=== PATIENT | female | born 1965 | race Caucasian/White ===

== ENCOUNTER 2019-05-07 07:58 | Outpatient (CLI) | payer MEDICAID, SELFPAY | END 2019-05-07 07:59 | disposition home or self-care (01) | LOC: ANHAUDIO 08:03 | DX: R42 Dizziness and giddiness (principal); H90.71 Mixed conductive and sensorineural hearing loss, unilateral, right ear, with unrestricted hearing on the contralateral side | CPT/HCPCS: 92537; 92540; 92546; 92557; 92567 ==

== ENCOUNTER 2020-12-21 14:12 | Outpatient (CLI) | payer OTHER, SELFPAY ==
[2020-12-21 15:15] LABS: Iron 97 ug/dL (37-170)
[2020-12-21 15:25] LABS: Percent Iron Saturation 22 % (20-50)
[2020-12-25 14:21] LABS: Ceruloplasmin 29 mg/dL (18-53)
[2020-12-25 20:18] LABS: Actin Antibody (IgG) <20 U (<20)
[2020-12-26 10:34] LABS: Mitochondrial (M2) Ab (IgG) <=20.0 U (<=20.0)
== END 2020-12-21 14:13 | disposition home or self-care (01) ==
PROVIDERS: Visit Provider Internal Medicine Gastroenterology
DX: R74.8 Abnormal levels of other serum enzymes (principal)
CPT/HCPCS: 36415; 82104; 82390; 82728; 83516; 83520; 83540; 83550; 86038

== ENCOUNTER → 2021-02-10 00:09 | Outpatient (CLI) | payer OTHER, SELFPAY ==
[2021-02-10 18:14] LABS: SARS-CoV-2 RNA PCR Negative
== END ==
PROVIDERS: Visit Provider Internal Medicine Gastroenterology
DX: Z01.812 Encounter for preprocedural laboratory examination (principal); Z20.822 Contact with and (suspected) exposure to COVID-19
CPT/HCPCS: C9803; U0003; U0005

== ENCOUNTER 2021-02-14 00:33 | Day surgery (SDC) | payer OTHER, SELFPAY ==
[2021-01-31 14:00] VITALS: BMI 32.2
[2021-02-14 09:36] LABS: Glucose Point of Care 190 mg/dl (65-105)
[2021-02-14 09:37] VITALS: BP 120/79; PULSE 87; TEMP 36.6; O2SAT 95
--- NOTE | 2021-02-14 09:41 | PM.HPGS ---
History of Present Illness History of Present Illness Consent: Risks, benefits, and alternatives have been discussed and questions answered. Patient agrees to proceed with procedure. Chief complaint: hx of colon polyps Narrative: Brigette Coughlin is a 55 year old female with TA polyp 2015 Review of Systems Constitutional: Constitutional: Denies headache(s) and Denies weakness Eyes: Eyes: Denies blurry vision ENT: Reports Normal hearing present, Denies headache(s) and Denies neck pain Cardiovascular: Cardiovascular: Denies chest pain and Denies dyspnea Respiratory: Respiratory: Denies dyspnea Gastrointestinal: Gastrointestinal: Reports no additional gastrointestinal complaints Genitourinary: Genitourinary: Denies dysuria Musculoskeletal: Musculoskeletal: Denies neck pain Integumentary/Breasts: Skin/Breast: Denies dry skin Neurologic: Reports Normal hearing present, Denies headache(s) and Denies weakness Psychiatric: Psychiatric: Denies anxiety Endocrine: Endocrine: Denies change in body appearance Hematologic/Lymphatic: Hematologic/Lymphatic: Denies easy bleeding Allergic/Immunologic: Allergic/Immunologic: Denies urticaria PMF Past Medical History Medical History (Updated 12/21/20 @ 14:10 by Kane Harris MD) Adenomatous colon polyp Diabetes mellitus Elevated liver enzymes Social History Social History (Updated 12/21/20 @ 13:39 by Nicole Souza CMA) Years smoked: 30 Smoking status: Never smoker Tobacco type: cigarettes Alcohol intake: never Substance use: never Living arrangements: alone Meds Home Medications and Allergies Home Medications Medication Instructions Recorded Confirmed Type blood sugar diagnostic 12/21/20 History exenatide 5 mcg SUBCUT BID 12/21/20 02/14/21 History gabapentin 400 mg capsule 400 mg PO TID 12/21/20 02/14/21 History glimepiride 2 mg tablet 4 mg PO QAM 12/21/20 02/14/21 History levothyroxine 137 mcg tablet 137 mcg PO DAILY 12/21/20 02/14/21 History loratadine 10 mg tablet 10 mg PO PRN 12/21/20 01/31/21 History losartan 25 mg tablet 25 mg PO DAILY 12/21/20 01/31/21 History meclizine 25 mg tablet 25 mg PO BID PRN 12/21/20 01/31/21 History meloxicam 15 mg tablet 15 mg PO DAILY 12/21/20 01/31/21 History metformin 500 mg tablet 1,000 mg PO BID 12/21/20 01/31/21 History pen needle, diabetic 32 gauge x 12/21/20 History / simvastatin 10 mg tablet 10 mg PO DAILY 12/21/20 01/31/21 History aspirin 81 mg PO DAILY 01/31/21 02/14/21 History cholecalciferol (vitamin D3) 125 mcg PO DAILY 01/31/21 02/14/21 History [Vitamin D3] cimetidine 400 mg PO BID 01/31/21 02/14/21 History fenofibrate 160 mg PO DAILY 01/31/21 02/14/21 History vitamin B complex [B 1 tablet PO DAILY 01/31/21 01/31/21 History Complex-Vitamin B12] vitamin E (dl, acetate) 180 mg PO DAILY 01/31/21 01/31/21 History Allergies Allergy/AdvReac Type Severity Reaction Status Date / Time Penicillins Allergy Unknown Unknown Verified 02/14/21 09:36 Vital Signs Vital Signs - 24 hr 02/14/21 09:37 Temperature 97.9 F Pulse Rate 87 Blood Pressure 120/79 Pulse Oximetry 95 Exam Const: General: comfortable and no acute distress HENMT: General nose exam: Normal nares present Eyes: General: appearance normal, both eyes and all related structures Neck: Neck: no JVD Resp: Auscultation: clear to auscultation bilaterally Cardio: Rate: regular rate Rhythm: regular rhythm GI: Inspection: non-distended GI Palp: Yes Soft to palpation Skin: General skin exam: normal color Neuro: General: gait normal Speech: normal speech Extrem: General: normal to inspection Psych: Mental Status: mental status grossly normal Assessment and Plan Assessment and plan (1) Adenomatous colon polyp: Code(s): D12.6 - Benign neoplasm of colon, unspecified Status: Acute Assessment and Plan: colonoscopy
[2021-02-14] MEDS: LACTATED RINGERS 1,000 ML 150 ML IV CONT (09:44)
--- NOTE | 2021-02-14 09:44 | WPDANESEPPF ---
Anes - Initial Pre Proc Eval Procedure: Operation Date: 02/14/21 10:45 Proposed Procedures p Screening Colonoscopy - Kane Harris MD Date/Time: 02/14/21 09:44 Surgeon: Kane Harris MD Pre Op Diagnosis: hx of colon polyps Patient Data Age: 55 Gender: F Height: 1.57 m Weight: 79.2 kg Last Vital Signs Temp 36.6 C 02/14/21 09:37 Pulse 87 02/14/21 09:37 BP 120/79 02/14/21 09:37 Pulse Ox 95 02/14/21 09:37 Allergies Allergy/AdvReac Type Severity Reaction Status Date / Time Penicillins Allergy Unknown Unknown Verified 02/14/21 09:36 Home Medications Medication Instructions Recorded Confirmed Type blood sugar diagnostic 12/21/20 History exenatide 5 mcg SUBCUT BID 12/21/20 02/14/21 History gabapentin 400 mg capsule 400 mg PO TID 12/21/20 02/14/21 History glimepiride 2 mg tablet 4 mg PO QAM 12/21/20 02/14/21 History levothyroxine 137 mcg tablet 137 mcg PO DAILY 12/21/20 02/14/21 History loratadine 10 mg tablet 10 mg PO PRN 12/21/20 01/31/21 History losartan 25 mg tablet 25 mg PO DAILY 12/21/20 01/31/21 History meclizine 25 mg tablet 25 mg PO BID PRN 12/21/20 01/31/21 History meloxicam 15 mg tablet 15 mg PO DAILY 12/21/20 01/31/21 History metformin 500 mg tablet 1,000 mg PO BID 12/21/20 01/31/21 History pen needle, diabetic 32 gauge x 12/21/20 History simvastatin 10 mg tablet 10 mg PO DAILY 12/21/20 01/31/21 History aspirin 81 mg PO DAILY 01/31/21 02/14/21 History cholecalciferol (vitamin D3) 125 mcg PO DAILY 01/31/21 02/14/21 History [Vitamin D3] cimetidine 400 mg PO BID 01/31/21 02/14/21 History fenofibrate 160 mg PO DAILY 01/31/21 02/14/21 History vitamin B complex [B 1 tablet PO DAILY 01/31/21 01/31/21 History Complex-Vitamin B12] vitamin E (dl, acetate) 180 mg PO DAILY 01/31/21 01/31/21 History Laboratory Tests 02/14/21 09:33 POC Capillary Glucose 190 mg/dl H mg/dl (65-105) Patient hx anesthesia problems: none Family hx anesthesia problems: none Results Review: All pre-operative results and documents have been reviewed as part of the pre-operative evaluation. [facility] Past Medical History Medical History (Updated 02/14/21 @ 09:44 by Myron Tanner MD) Adenomatous colon polyp Diabetes mellitus Elevated liver enzymes Obesity Surgical History Surgical History (Updated 02/14/21 @ 09:44 by Myron Tanner MD) H/O colonoscopy Social History Social History Years smoked: 30 Smoking status: Never smoker Tobacco type: cigarettes Alcohol intake: never Substance use: never Living arrangements: alone Anes - Eval Final PreProcedure Day of Procedure 02/14/21 09:44 Patient weight: obese Heart: regular rate and rhythm Lungs: clear to auscultation Airway: Mallampati scale class II Neurological: alert and oriented Last oral intake: >/= 8 hours ASA classification: III Emergent: no Anesthetic plan: proceed Anesthesia type and monitoring: general GIVS and standard monitoring Results Review: All pre-operative results and documents have been reviewed as part of the pre-operative evaluation. Informed Consent: The patient's anesthetic plan and its attendant risks and benefits were discussed with the patient/family/POA. Questions were solicited and answers provided to the satisfaction of the patient/family/POA.
[2021-02-14 10:08] VITALS: BP 113/71; PULSE 80; RESP 23; O2SAT 94
[2021-02-14 10:18] VITALS: BP 121/72; PULSE 72; RESP 21; O2SAT 98
[2021-02-14 10:28] VITALS: BP 119/83; PULSE 75; RESP 20; O2SAT 98
== END 2021-02-14 10:38 | disposition home or self-care (01) ==
PROVIDERS: PCP Internal Medicine; Visit Provider Internal Medicine Gastroenterology
PROC: 0DJD8ZZ Inspection of Lower Intestinal Tract, Via Natural or Artificial Opening Endoscopic (ICD-10-PCS; CPT 45378; principal; 2021-02-14 10:45)
DX: Z12.11 Encounter for screening for malignant neoplasm of colon (principal); D12.2 Benign neoplasm of ascending colon; K63.5 Polyp of colon; K64.8 Other hemorrhoids; E03.9 Hypothyroidism, unspecified; Z79.82 Long term (current) use of aspirin; Z79.4 Long term (current) use of insulin; E11.9 Type 2 diabetes mellitus without complications; R74.8 Abnormal levels of other serum enzymes; E66.9 Obesity, unspecified; Z68.31 Body mass index [BMI] 31.0-31.9, adult
CPT/HCPCS: 45385; 82948; 88305; J2704; J7120

== ENCOUNTER 2021-11-21 10:44 | Emergency (ER) | payer OTHER, SELFPAY ==
--- NOTE | ~2021-11-21 | XR_ITS ---
EXAMINATION: XR foot LT min 3V DATE: 11/21/2021 11:31 INDICATION: Lateral left foot and heel pain TECHNIQUE: Dorsoplantar, two oblique and lateral views of the left foot were obtained. COMPARISON: None. FINDINGS: Bone alignment is normal. No fracture. Mild osteoarthritis at multiple joints scattered throughout th e left foot. No erosions to suggest inflammatory arthritis. Normal accessory os supranaviculare. Soft tissues are unremarkable with no ankle joint effusion.. IMPRESSION: 1. 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 No acute osseous abnormality. Reviewed, dictated and finalized at location A.
[2021-11-21 10:50] VITALS: BP 122/78; PULSE 98; RESP 14; TEMP 36.7; O2SAT 97
--- NOTE | 2021-11-21 11:11 | ED.LOWEXIN ---
HPI - Extremity Injury (Lower) General Chief Complaint: Extremity Injury, Lower Stated Complaint: left foot up to knee pain Time Seen by Provider: 11/21/21 11:11 Source: patient Mode of arrival: ambulatory Limitations: no limitations History of Present Illness HPI Narrative: 56 y/o female presented for c/o left foot, heel and ankle pain for 2 days, Reports swelling at onset, but stayed off the foot yesterday and used ice, endorses improvement in this pain and swelling. She also reports burning sensation up the lower leg to the knee and is severe with light touch, onset today. States she could not tolerate shaving her legs or any touch to the leg. Denies injury, redness, or wounds to the legs, denies numbness, tingling or weakness. Denies exercise. Hx DM, fibromyalgia, taking gabapentin and meloxicam scheduled. Related Data Home Medications Medication Instructions Recorded Confirmed blood sugar diagnostic (True 12/21/20 07/26/21 Metrix Glucose Test Strip) gabapentin 400 mg capsule 400 mg PO TID 12/21/20 11/21/21 glimepiride 2 mg tablet 4 mg PO QAM 12/21/20 11/21/21 levothyroxine 137 mcg tablet 137 mcg PO DAILY 12/21/20 11/21/21 loratadine 10 mg tablet (Claritin) 10 mg PO PRN Allergies 12/21/20 11/21/21 losartan 25 mg tablet 25 mg PO DAILY 12/21/20 11/21/21 meloxicam 15 mg tablet 15 mg PO DAILY 12/21/20 11/21/21 metformin 500 mg tablet 1,000 mg PO BID 12/21/20 11/21/21 pen needle, diabetic 32 gauge x 12/21/20 07/26/21 5/32 (Sure Comfort Pen Needle) simvastatin 10 mg tablet 10 mg PO DAILY 12/21/20 11/21/21 cholecalciferol (vitamin D3) 125 125 mcg PO DAILY 01/31/21 11/21/21 mcg (5,000 unit) tablet (Vitamin D3) cimetidine 400 mg tablet 400 mg PO BID 01/31/21 11/21/21 fenofibrate 160 mg tablet 160 mg PO DAILY 01/31/21 11/21/21 vitamin B complex (B 1 tablet PO DAILY 01/31/21 11/21/21 Complex-Vitamin B12 tablet) vitamin E (dl, acetate) 180 mg 180 mg PO DAILY 01/31/21 11/21/21 (400 unit) capsule dulaglutide 1.5 mg/0.5 mL 1.5 mg subcut WEEKLY 07/26/21 11/21/21 subcutaneous pen injector (Trulicity) Allergies Allergy/AdvReac Type Severity Reaction Status Date / Time morphine Allergy Mild BURNING Verified 11/21/21 11:07 PAIN ALL OVER Penicillins Allergy Unknown Hives Verified 11/21/21 11:06 lisinopril AdvReac Cough Verified 11/21/21 11:06 Review of Systems Review of Systems: CONSTITUTIONAL: Denies body aches, fever, chills CARDIOVASCULAR: Denies chest pain, palpitations, or edema. RESPIRATORY: Denies cough or dyspnea. SKIN: Denies rash, itching, or wounds. MUSCULOSKELETAL: Reports left ankle,foot pain NEUROLOGIC: Denies headache All systems reviewed & are unremarkable except as noted in HPI and below PMFSH Past Medical History Medical History Adenomatous colon polyp Diabetes mellitus Elevated liver enzymes Fatty liver Obesity Surgical History Surgical History H/O colonoscopy Social History Social History Years smoked: 30 Tobacco type: cigarettes Alcohol intake: never Substance use: never Comments At time of signature, I have reviewed and agree with nursing past medical, surgical, social and family history unless otherwise noted. Please see nursing chart for further information. There is no relevant family history pertinent to the presenting complaint Exam Narrative: GENERAL: Well-appearing CHEST: Speaks in full sentences. No respiratory distress. HEART: Regular rate and rhythm. Normal and equal peripheral pulses. EXTREMITIES: Left lateral foot TTP and plantar surface of heel is TTP; Full ROM; left foot and LE has normal strength and sensation to 2 point discrimination, No swelling/bruising/wounds to leg/foot. Reports tenderness to light touch. No obvious deformity; pulse palpable and equal bilaterall
--- NOTE | 2021-11-21 11:30 | PC.NURSE ---
UNABLE TO OFFER PT ICE BAG FOR COMFORT DUE TO ICE MACHINE NOT PRODUCING ICE
== END 2021-11-21 11:52 | disposition home or self-care (01) ==
PROVIDERS: Emergency Provider Nurse Practitioner Family; PCP Internal Medicine
DX: M79.672 Pain in left foot (principal); G62.9 Polyneuropathy, unspecified; E11.9 Type 2 diabetes mellitus without complications; K76.0 Fatty (change of) liver, not elsewhere classified; E66.9 Obesity, unspecified; Z68.31 Body mass index [BMI] 31.0-31.9, adult; F17.210 Nicotine dependence, cigarettes, uncomplicated; M79.7 Fibromyalgia
CPT/HCPCS: 73630; 99213; G0463

== ENCOUNTER 2022-07-25 14:01 | Outpatient (CLI) | payer OTHER, SELFPAY ==
[2022-07-25 14:57] LABS: Alanine Aminotransferase 42 U/L (6-35); Albumin Level 4.9 g/dL (3.5-5.1); Alkaline Phosphatase 42 U/L (38-126); Anion Gap 9 mmol/L (8-16); Aspartate Amino Transferase 38 U/L (14-36); Bilirubin,Total 0.5 mg/dL (0.2-1.3); Blood Urea Nitrogen 23 mg/dL (7-17); Calcium 9.7 mg/dL (8.4-10.2); Carbon Dioxide 33 mmol/L (22-30); Chloride 100 mmol/L (98-107); Estimated Glomerular Filt Rate 57; Glucose 104 mg/dL (65-110); Potassium 4.4 mmol/L (3.4-5.0); Sodium 142 mmol/L (137-145)
== END 2022-07-25 14:02 | disposition home or self-care (01) ==
LOC: ANHLAB 14:03
PROVIDERS: PCP Internal Medicine; Visit Provider Internal Medicine Gastroenterology
DX: K76.0 Fatty (change of) liver, not elsewhere classified (principal); R74.8 Abnormal levels of other serum enzymes
CPT/HCPCS: 36415; 80053

== ENCOUNTER 2025-03-18 12:56 | Emergency (ER) | payer OTHER, SELFPAY ==
--- OUTSIDE RECORDS SUMMARY | 2025-03-18 12:59 | XMS_ITS | Clinical Summary ---
Author Organization [facility] Address [address] [place] [address] Phone Care Team Providers Care Police Patrol Lieutenant Name Role Phone Cayden Pedraza MD Unavailable Tiago Nguyen MD Unavailable Erika Kumar APRN, CABINET PROFESSIONAL Primary Care Provider [phone] Allergies Active Allergy Reactions Criticality Noted Date Comments Lisinopril Other (see Comments) 07/14/2018 Morphine Other (see Comments) 07/14/2018 Feel like she is on fire. Penicillins Other (see Comments) 07/14/2018 Reaction: Unknown, Medications levothyroxine (SYNTHROID) 137 MCG Tablet levothyroxine 137 mcg tablet TAKE 1 TABLET(S) EVERY DAY BY ORAL ROUTE. Active glimepiride (AMARYL) 4 MG Tablet glimepiride 4 mg tablet TAKE 1 TABLET(S) EVERY DAY BY ORAL ROUTE. 6 Active losartan (COZAAR) 25 MG Tablet losartan 25 mg tablet TAKE ONE TABLET BY MOUTH DAILY 6 Active metFORMIN (GLUCOPHAGE) 1000 MG Tablet Take 1,000 mg by mouth 2 times daily (with meals). 6 Active meclizine (ANTIVERT) 25 MG TabletIndicati ons:Vertigo Take 1 Tab by mouth 3 times daily as needed for Dizziness. 30 Tab 9 Active atorvastatin (LIPITOR) 10 MG Tablet atorvastatin 10 mg tablet Active SURE COMFORT PEN NEEDLES 32G X 4 MM Misc 4 9 Active famotidine (PEPCID) 20 MG Tablet famotidine 20 mg tablet Active Naltrexone-buP ROPion HCl ER (CONTRAVE) 8-90 MG TABLET SR 12 HR Contrave 8 mg-90 mg tablet,extended release 1 tab daily for a wk and then bid Active Empagliflozin (JARDIANCE PO) Take by mouth. Active HYDROcodone-ac etaminophen (NORCO) 5-325 MG TabletIndicati ons:Ureteral calculus, left Take 1 Tablet by mouth every 6 hours as needed for Moderate or more severe pain. 20 Tablet 5 Active Additional Information Patient not taking.Reported on 01/14/2025 gabapentin (NEURONTIN) 100 MG Capsule Take 2 Capsules by mouth 3 times daily. 90 Capsule 1 5 Active polyethylene glycol (GLYCOLAX, MIRALAX) 17 g PackIndication s:Constipation Take 1 Packet by mouth 2 times daily as needed for Constipation - 1st line. Dissolve in 4-8 oz of liquid. Indications: Constipation 90 Packet 5 Active Additional Information Patient not taking.Reported on 01/14/2025 rosuvastatin (CRESTOR) 20 MG Tablet Take 20 mg by mouth daily. Active cimetidine (TAGAMET) 200 MG Tablet Take 200 mg by mouth 4 times daily. Active loratadine (Claritin) 10 MG Capsule Take by mouth. Acti ve diclofenac (VOLTAREN) 50 MG Tablet Delayed Response 5 Active [place]-3 Fatty Acids (FISH OIL PO) Take by mouth. Activ e Dulaglutide (Trulicity) 3 MG/0.5ML Solution Auto-injector 3 mg by Subcutaneous route once a week. 6 mL 5 Active Active Problems Problem Noted Date Diagnosed Date Ureteral calculus, left 09/30/2024 Neuropathy Hypothyroid Graves disease GERD (gastroesophageal reflux disease) Fatty liver Dyslipidemia Diabetes Encounters Date Type Department Care Team Description 02/04/2025 Refill [facility] [place] [address] [place] [address] Cayden Pedraza MD Medication Refill 01/14/2025 10:00 AM CDT Office Visit [facility] [place] [address] [place] [address] Cayden Pedraza MD Type 2 diabetes mellitus with diabetic polyneuropathy, without long-term current use of insulin (Primary Dx); Medication dose changed; Class 1 obesity due to excess calories with serious comorbidity and body mass index (BMI) of 30.0 to 30.9 in adult Discharge Disposition: Discharged to home or Selfcare 01/12/2025 Travel from Last 3 Months Immunizations Immunization Administration Dates Next Due Influenza, Injectable, Quadrivalent 12/22,12/11/2017,01/17/2017, 016,12/20/2014 TDAP Vaccine 11/16/2015 Family History Medical History Relation Name Comments Diabetes Father Liver Cancer Father Cervical Cancer Mother Chronic Obstructive Pulmonary Disease Mother Diabetes Mother Heart Surgery Mother Relation Name Status Comments Father Mother Social History Tobacco Use Types Packs/Day Years Used Date Smoking Tobacco: Former Smokeless Tobacco: Never Tobacco Cessation:Counseling Given: Not Answered Alcohol Use Standard Drinks/Week Comments Never 0 (1 standard drink = 0.6 oz pur e alcohol) AUDIT-C Answer Date Recorded Frequency of Alcohol Consumption Never 07/14/2018 Average Number of Drinks Not on file 019 Frequency of Binge Drinking Not on file 06/23 Social Connection and Isolation Panel Answer Date Recorded In a typical week, how many times do you talk on the phone with family, friends, or neighbors? Patient declined 09/30/2024 How often do you get togethe r with friends or relatives? Patient declined 09/30/2024 How often do you attend scientology or islam serv ices? Patient declined 09/30/2024 Do you belong to any clubs o r organizations such as scientology groups, unions, fraternal or athletic groups, or school groups? Patient declined 09/30/2024 How often do you attend meet ings of the clubs or organizations you belong to? Patient declined 09/30/2024 Are you , , di vorced, , never , or living with a partner? Patient declined 09/30/2024 AUDIT-C Answer Date Recorded Q1: How often do you have a drink containing alc ohol? Patient declined 09/30/2024 Q2: How many drinks containi ng alcohol do you have on a typical day when you are drinking? Patient declined 09/30/2024 Q3: How often do you have si x or more drinks on one occasion? Patient declined 09/30/2024 Overall Financial Resource Strain (CARDIA) Answe r Date Recorded How hard is it for you to pa y for the very basics like food, housing, medical care, and heating? Patient declined 09/30/2024 [facility] of Occupat ional [facility] - Occupational Stress Questionnaire Answer Date Recorded Do you feel stress - tense, restless, nervous, or anxious, or unable to sleep at night because your mind is troubled all the time - these days? Patient declined 09/30/2024 Exercise Vital Sign Answer Date Recorde d On average, how many days pe r week do you engage in moderate to strenuous exercise (like a brisk walk)? Patient declined On average, how many minutes do you engage in exercise at this level? Patient declined 09/30/2024 Hunger Vital Sign Answer Date Recorded Within the past 12 months, y ou worried that your food would run out before you got the money to buy more. Patient declined Within the past 12 months, t he food you bought just didn't last and you didn't have money to get more. Patient declined 12/2024 PRAPARE - Transportation Answer Date Re corded In the past 12 months, has l ack of transportation kept you from medical appointments or from getting medications? Patient declined 09/30/2024 In the past 12 months, has l ack of transportation kept you from meetings, work, or from getting things needed for daily living? Patient declined 09/30/2024 Housing Stability Vital Sign Answer Alberto e Recorded In the last 12 months, was t here a time when you were not able to pay the mortgage or rent on time? Patient declined 10/01/19 25 In the past 12 months, how m any times have you moved where you were living? 1 09/30/2024 At any time in the past [address] [facility], were you homeless or living in a chcf (including now)? Patient declined 09/30/2024 [facility] Utilities Answer Date Recorded In the past 12 months has th e [employer], gas, oil, or water [employer] threatened to shut off services in your home? 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 Not on file Not on file Last Filed Vital Signs Vital Sign Reading Time Taken Comments Blood Pressure 142/72 01/14/2025 10:08 AM CDT Pulse 83 01/14/2025 10:08 AM CDT Temperature 36.7 C (98.1 F) 01/14/2025 10:08 AM CDT Respiratory Rate 22 01/14/2025 10:08 AM CDT Oxygen Saturation 96% 01/14/2025 10:08 AM CDT Inhaled Oxygen Concentration - - Weight 75.4 kg (166 lb 3.2 oz) 01/14/2025 10:08 AM CDT Height 157.5 cm (5' 2) 12/09/2024 10:13 AM CDT Body Mass Index 30.4 12/09/2024 10:13 AM CDT Plan of Treatment Upcoming Encounters Date Type Department Care Team (Late st Contact Info) Description 04/21/2025 10:15 AM GLASS DECORATOR [facility] [place] [address] [place] [id number] Cayden Pedraza MD [address] [facility] [address] [place] [address] 06/09/2025 10:00 AM CDT Office Visit [facility] [address] [place] [phone] Tiago Nguyen MD [address] [facility] [address] [place] [address] Health Maintenance Due Date Last Done Comments Diabetes: Eye Exam 1965 Pneumococcal Immunization (50+ years) (1 of 2 - PCV) 11/05/1982 Cologuard 11/05/2008 Immunochemical Fecal Occult Blood 11/05/2008 Respiratory Syncytial Virus (RSV) Immunization (Adult) (1 - Risk 50-74 years 1-dose series) 11/05/2013 Zoster Immunization (1 of 2) 11/05/2013 Mammogram 02/28/2023 02/28/2022, 09/21, 10/28/2016 Influenza Immunization (#1) 11/22/202412/22, 12/11/2017, 01/17/2017, Additional history exists SARS-COV-2 Immunization ( season) 2024 Diabetes: Hemoglobin A1c 04/02/2025 025, 08/18/2020, 04/14/2020 Diabetes: Foot Exam 10/14/2025 10/14/2024 Diabetes: Nephropathy Screening 10/14/2025 10/14/2024, 10/14/2024, 09/30/2024, Additional history exists Td Immunization Every 10 Years (Adults With 1 Tdap) 11/15/2025 11/16/2015 Colonoscopy 02/14/2031 02/14/2021, 01/23, 01/03/2015 Colorectal Cancer Screening 02/14/2031 DTaP/Tdap/Td Immunization Discontinued 11/16/2015 TdaP Immunization Discontinued 11/16/2015 Hepatitis C Virus (HCV) Screening Completed 07/14/2018 Hepatitis B Immunization Aged Out No longer eligible based on patient's age to complete this topic Human Papillomavirus (HPV) Immunization (No Doses Required) Completed Meningococcal Immunization (ACWY) Aged Out No longer eligible based on patient's age to complete this topic Rotavirus Immunization Aged Out No lo nger eligible based on patient's age to complete this topic Medical Devices Implanted Type Area Spring Bender Device Identifier Shelf Expiration Date Model / Serial / Lot Stent Ureteral 6fr 2.1fr 24cm 2 Pigtail Curve 2 Durometer Taper Tip Loprfl Graduated Polaris Ultra - [id number] Implanted:Qty : 1 on 10/01/2024 by Brandee Maier MD at [facility] IMPLANT Left: [employer] 06/21/2027 [id number] / [id number] / [id number] Procedures Procedure Name Priority Date/Time Associated Diagnosis Comments CMP (COMPREHENSIVE METABOLIC PANEL) Routine 10/14/2024 11:17 AM CDT Type 2 diabetes mellitus with diabetic polyneuropathy, without long-term current use of insulin (HCC) Postablative hypothyroidism HEMOGLOBIN A1C W/ ESTIMATED GLUCOSE Routine 09/30/2024 12:56 PM CDT RAMBO SCREENING BILATERAL DIGITAL W CAD W TRUDY Routine 02/28/2022 11:33 AM GLASS DECORATOR Encounter for screening mammogram for malignant neoplasm of breast HEPATITIS PANEL ACUTE (AHP) Routine 07/14/2018 2:41 PM CDT Elevated liver enzymes HM COLONOSCOPY Routine 01/03/2015 from Last 3 Months or Most Recently Relevant to Health Maintenance Results * (ABNORMAL) CMP (COMPREHENSIVE METABOLIC PANEL) (10/14/2024 11:17 AM CDT) SODIUM 140 136 - 145 mmol/L 10/14/2024 12:27 PM CDT [facility] POTASSIUM 5.0 3.5 - 5.1 mmol/L 10/14/2024 12:27 PM CDT [facility] CHLORIDE 104 98 - 107 mmol/L 10/14/2024 12:27 PM CDT [facility] CO2, VENOUS 27 22 - 30 mmol/L 10/14/2024 12:27 PM CDT [facility] ANION GAP 14.0 <18.0 mmol/L 10/14/2024 12:27 PM CDT [facility] GLUCOSE 120(H) 70 - 99 mg/dL 10/14/2024 12:27 PM CDT [facility] BUN 20 10 - 20 mg/dL 10/14/2024 12:27 PM CDT [facility] CREATININE, BLOOD 0.87 0.60 - 1.00 mg/dL 10/14/2024 12:27 PM [facility] BUN/CREATININE RATIO 23(H) 12 - 20 ratio 10/14/2024 12:27 PM [facility] TOTAL PROTEIN 8.0 6.0 - 8.0 g/dL 10/14/2024 12:27 PM [facility] ALBUMIN 4.8 3.5 - 5.0 g/dL 10/14/2024 12:27 PM [facility] A/G RATIO 1.5 1.0 - 2.2 10/14/2024 12:27 PM [facility] CALCIUM 10.0 8.7 - 10.5 mg/dL 10/14/2024 12:27 PM [facility] T BILI 0.2 0.2 - 1.2 mg/dL 10/14/2024 12:27 PM [facility] SGOT (AST) 39 <43 U/L 10/14/2024 12:27 PM [facility] SGPT (ALT) 41 <56 U/L 10/14/2024 12:27 PM [facility] ALKALINE PHOSPHATASE 61 40 - 150 U/L 10/14/2024 12:27 PM [facility] IS THE PATIENT REQUIRED TO BE FASTING? No 10/14/2024 12:27 PM [facility] GFR, ESTIMATED >60 >=60 10/14/2024 12:27 PM [facility] Comment: Creatinine Clearance is the preferred criteria for selecting drug dose adjustments in renally impaired patients. The GFR is provided as additional pertinent clinical information. GFR is reported in mL/min/1.73 sq m. Calculation based on the Chronic Kidney Disease Epidemiology Collaboration (CKD- EPI) equation refit without adjustment for race. GFR, EST. >60 >=60 025 12:27 PM [facility] GFR, EST. NONAFRICAN >60 >=60 10/14/2024 12:27 PM [facility] Blood Venipuncture / Unknown 10/14/2024 11:17 AM CDT 10/14/2024 11:34 AM CDT us Cayden Pedraza MD CHEMISTRY ORDERABLES Final Resul t Performing Organization Address City/[facility] Co de Phone Number [facility] [address] [place] [address] * (ABNORMAL) Hemoglobin A1C (if indicated) (09/30/2024 12:56 PM CDT) HGB-A1C 7.4(H) 4.0 - 6.0 % 09/30/2024 6:35 PM CDT [facility] Est Average Glucose 165.7 mg/dL 09/30/2024 6:35 PM CDT [facility] Blood Venipuncture / Unknown 09/30/2024 12:56 PM CDT 09/30/2024 1:06 PM CDT Narrative [facility] - 09/30/2024 6:35 PM CDT HEMOGLOBIN A1C: DIABETIC PATIENTS: WELL-CONTROLLED: 6.2 - 7.0 INTERMEDIATE WELL-CONTROLLED: 7.0 - 9.0 POORLY-CONTROLLED: >9.0 Specimens containing greater than 5% of Hemoglobin F may result in lower than expected % HbA1C results. us Lakeisha Wright APRN, CABINET PROFESSIONAL CHEMISTRY ORDERABLES Fi nal Result Performing Organization Address City/[facility] Co de Phone Number [facility] [address] [place] [address] * RAMBO SCREENING BILATERAL DIGITAL W CAD W TRUDY (02/28/2022 11:33 AM GLASS DECORATOR) Anatomical Region Laterality Modality breast Bilateral Mammography 02/28/2022 10:4 7 AM GLASS DECORATOR Narrative 03/01/2022 9:18 AM GLASS DECORATOR - RAMBO SCREENING BILATERAL DIGITAL W CAD W TRUDY BILATERAL DIGITAL SCREENING MAMMOGRAM 3D/2D WITH CAD WITH MEDIOLATERAL OBLIQUE CRANIOCAUDAL: 02/28/2022 The study was acquired using digital technology and interpreted from soft copy. Current study was also evaluated with ICAD version 7.2. 2D digital mammographic views, as well as 3D digital tomosynthesis were performed in the CC and MLO projections. CLINICAL: Routine screening. Patient reports, since starting physical therapy, having left lateral pain with possible knot. When patient pointed out the area to the technologist, it seemed to be on the left lateral ribs and just below the breast tissue. Patient agreed to continue with a screening since the area appeared to be just out of the breast field. No personal history of cancer. Mother and maternal grandmother with breast cancer. COMPARISONS: Comparison is made to exams dated: 10/08/2019, 10/28/2016, and 05/30/2014 [facility]. BREAST TISSUE:The tissue of both breasts is heterogeneously dense. This may lower the sensitivity of mammography. FINDINGS: There is a biopsy clip in both breasts. No significant masses, calcifications, or other findings are seen in either breast. There has been no significant interval change. IMPRESSION: BI-RAD 1 NEGATIVE There is no mammographic evidence of malignancy. A 1 year screening mammogram is recommended. A letter will be sent to the patient with these results. The patient will be entered into a reminder system with a target due date of 1 year for her next screening exam. Electronically signed by: Ahmet hutchinson/michele:02/28/2022 22:46:06 Mig Tig Welder(s): RT Benny(R)(M), [facility] letter sent: Normal Exam Reading location: [facility] BI-RADS: 1 Negative Procedure Note Ahmet Pardo MD - 03/01/2022 - RAMBO SCREENING BILATERAL DIGITAL W CAD W TRUDY BILATERAL DIGITAL SCREENING MAMMOGRAM 3D/2D WITH CAD WITH MEDIOLATERAL OBLIQUE CRANIOCAUDAL: 02/28/2022 The study was acquired using digital technology and interpreted from soft copy. Current study was also evaluated with ICAD version 7.2. 2D digital mammographic views, as well as 3D digital tomosynthesis were performed in the CC and MLO projections. CLINICAL: Routine screening. Patient reports, since starting physical therapy, having left lateral pain with possible knot. When patient pointed out the area to the technologist, it seemed to be on the left lateral ribs and just below the breast tissue. Patient agreed to continue with a screening since the area appeared to be just out of the breast field. No personal history of cancer. Mother and maternal grandmother with breast cancer. COMPARISONS: Comparison is made to exams dated: 10/08/2019, 10/28/2016, and 05/30/2014 [facility]. BREAST TISSUE:The tissue of both breasts is heterogeneously dense. This may lower the sensitivity of mammography. FINDINGS: There is a biopsy clip in both breasts. No significant masses, calcifications, or other findings are seen in either breast. There has been no significant interval change. IMPRESSION: BI-RAD 1 NEGATIVE There is no mammographic evidence of malignancy. A 1 year screening mammogram is recommended. A letter will be sent to the patient with these results. The patient will be entered into a reminder system with a target due date of 1 year for her next screening exam. Electronically signed by: Ahmet hutchinson/michele:02/28/2022 22:46:06 Mig Tig Welder(s): RT Benny(R)(M), [facility] letter sent: Normal Exam Reading location: [facility] BI-RADS: 1 Negative us Yoan Humphries MD [facility] MAMMO ORDERABLES Final Re sult * HEPATITIS PANEL ACUTE (AHP) (07/14/2018 2:41 PM CDT) HEPATITIS A IGM ANTIBODY NON DETECTED NON DETECTED 07/15/2018 12:07 AM CDT [facility] Comment: IGM Antibodies to HAV not detected. Does not exclude early acute or recovered HAV infection. HEP B CORE AB (IGM) NON DETECTED NON DETECTED 07/15/2018 12:07 AM CDT [facility] Comment: IGM anti-HBC not detected. Does not exclude the possibility of exposure to or infection with HBV. HEPATITIS B SURFACE ANTIGEN NON DETECTED NON DETECTED 07/15/2018 12:07 AM CDT [facility] Comment: A nonreactive test result does not exclude the possibility of exposure to or infection with Hepatitis B virus. A nonreactive test result in individuals with prior exposure to hepatitis B may be due to antigen levels below the detection limit of this assay or lack of antigen reactivity to the antibodies in this assay. hepatitis C antibody 0.28 <1 S/CO 07/15/2018 12:07 AM CDT [facility] Comment: Signal/Cutoff ratio < 0.79 is Nondetected Signal/Cutoff ratio 0.80-0.99 is Grayzone Signal/Cutoff ratio > 0.99 is Detected Supplemental assays are recommended if signal/cutoff ratio is >/=1.00. Signal/cutoff ratio result >/= 5.00 is 97% predictive of positivity for recombinant immunoblot assay (RIBA) and will be reported to the [place] Department of Public Health as required. Blood specimen (specimen) Venipuncture / Unknown 07/14/2018 2:41 PM CDT 07/14/2018 4:13 PM CDT us Kailyn Patel AX SURVEY WORKER, CABINET PROFESSIONAL HEMATOLOGY ORDERABLES Fi nal Result Performing Organization Address City/State/[facility] Co de Phone Number [facility] [address] [place] [address], * COLONOSCOPY (01/03/2015) Attila Tejada MD PROCEDURE/MINOR SURGICAL OR DERABLES Final Result from Last 3 Months or Most Recently Relevant to Health Maintenance Insurance MEDICAID [place] Advance Directives * Full Code (Latest Code Status on File) Date Activated Date Inactivated Comments 09/30/2024 5:26 PM CPR-Full Treat ment: FULL ARREST: Attempt Resuscitation/CPR wit intubation and mechanical ventilation. PRE-ARREST: Use entire range of life support measures to stabilize the patient. Care Teams Police Patrol Lieutenant Relationship Specialty Start Date End Date Erika Kumar APRN, CNP [address] [facility] [address] [place] [address] PCP - General Family Medicine 10/14/24 Cayden Pedraza MD [address] [phone] Consulting Physician Endocrinology 10/12/24 Tiago Nguyen MD [address] [address] Consulting Physician Urology 10/12/24
--- OUTSIDE RECORDS SUMMARY | 2025-03-18 12:59 | XMS_ITS | Encounter Summary ---
Author Organization [facility] Address [address] [place] [address] Phone Care Team Providers Care Block Stacker Name Role Phone Yoan Humphries MD Primary Care Provider [phone] Iman Levine WASHER BLANKET, LIFTER Unavailable [phone] Cayden Pedraza MD Unavailable Tiago Nguyen MD Unavailable Erika Kumar WASHER BLANKET, LIFTER Primary Care Provider [phone] Encounter Details Date Type Department Care Team (Late st Contact Info) Description 08/15/2020 Transcribe Orders [facility] Admitting [address] [place] [address] Yoan Humphries MD [address] [place] [address] Social History Tobacco Use Types Packs/Day Years Used Date Smoking Tobacco: Former Smokeless Tobacco: Never Alcohol Use Standard Drinks/Week Comments Never 0 (1 standard drink = 0.6 oz pur e alcohol) AUDIT-C Answer Date Recorded Frequency of Alcohol Consumption Never 07/14/2018 Average Number of Drinks Not on file 019 Frequency of Binge Drinking Not on file 06/23 Comments No Sex and Gender Information Value Date Recorded Sex Assigned at Female 04/12/2023 12:39 PM CASH APPLICATIONS ANALYST Legal Sex Female 11:32 PM CDT Gender Identity Female 04/12/2023 12:39 PM CASH APPLICATIONS ANALYST Sexual Orientation Straight 04/12/2023 12 :39 PM CASH APPLICATIONS ANALYST 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 No / Unsure 08/18/2020 10:27 AM CDT documented as of this encounter Plan of Treatment Upcoming Encounters Date Type Department Care Team (Late st Contact Info) Description 04/21/2025 10:15 AM CASH APPLICATIONS ANALYST Office Visit [facility] - [facility] [address] [place] [address] Cayden Pedraza MD #2 [facility] [address] [place] [phone] 06/09/2025 10:00 AM CDT Office Visit [facility] #[address] [place] [phone] Tiago Nguyen MD #2 [facility] [address] [place] [address] documented as of this encounter Visit Diagnoses Not on filedocumented in this encounter Additional Health Concerns Infection Onset Date Last Indicated Resolved Time Respiratory Rule-Out 06/16/2023 06/16/2023 024 6:10 PM CDT COVID - 19 06/16/2023 06/16/2023 06/16/2023 6:10 PM CDT documented as of this encounter Care Teams Block Stacker Relationship Specialty Start Date End Date Yoan Humphries MD [address] [place] [address] PCP - General Internal Medicine 8/26/16 7/23/25 Erika Kumar APRN, LIFTER [address] [place] [facility] [address] [place] [address] PCP - General Family Medicine 10/14/24 Iman Levine APRN, LIFTER #2 [facility] [address] [place] [address] Nurse Practitioner Cardiology 05/20/23 10/03/24 Cayden Pedraza MD [address] [phone] Consulting Physician Endocrinology 10/12/24 Tiago Nguyen MD #2 [place] [facility] [address] [place] [address] Consulting Physician Urology 10/12/24 documented as of this encounter
--- OUTSIDE RECORDS SUMMARY | 2025-03-18 12:59 | XMS_ITS | Clinical Summary ---
Author Organization [facility] [employer] Address [address] [place] [address] Care Team Providers Care River Rat Name Role Phone Daxa Londono PA-C Primary Care Provider Leida vailable Source Comments [facility] [employer],non-owned Affiliates and Associated Physician Practices is amultiple site organization consisting of ambulatory clinics and hospital sitesin [place], [place], [place] and [place]. This disclosure is being madepursuant to the Care Everywhere program and may not contain all information available regarding this patient. Last updated 17.[facility] [employer] Allergies Active Allergy Reactions Criticality Noted Date Comments Lisinopril Cough,Other 07/14/2018 Morphine Unknown,Other 07/14/2018 Feel like she is on fire. Penicillins Urticaria Medium 07/14/2018 Reaction: Unknown, Medications * Be aware that medications may not be up to date on this document. Alwaysverify current medications with the patient. rosuvastatin (Crestor) 20 MG tablet Take 1 (one) tablet by mouth once daily 4 Active fenofibrate (Lofibra) 160 MG tablet Take 1 (one) tablet by mouth once daily 4 Active fluconazole (Diflucan) 150 MG tablet 3 Active fluticasone propionate (Flonase) 50 MCG/ACT nasal spray USE ONE (1) SPRAY INTO EACH NOSTRIL ONCE a DAY Active gabapentin (Neurontin) 600 MG tablet 4 Active glimepiride (Amaryl) 4 MG tablet Take 1 (one) tablet by mouth once daily 4 Active levothyroxine (Synthroid) 137 MCG tablet Take 1 (one) tablet by mouth once daily 4 Active loratadine (Claritin) 10 MG tablet Take 1 tablet every day by oral route. Active losartan (Cozaar) 25 MG tablet Take 1 (one) tablet by mouth once daily Active meclizine (Bonine) 25 MG chew tablet TAKE ONE (1) TABLET(S) THREE (3) TIMES a DAY BY ORAL ROUTE NEEDED. Active meloxicam (Mobic) 15 MG tablet TAKE ONE TABLET BY MOUTH DAILY NEEDED-USE SPARINGLY Active metFORMIN (Glucophage) 500 MG tablet Take 2 (two) tablets by mouth two times daily at 4am and 4pm 4 Active Rybelsus 14 MG tablet TAKE 1 TABLET EVERY DAY BY ORAL ROUTE. 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 Multiple benign nevi 10/30/2023 Social History Tobacco Use Types Packs/Day Years Used Date Smoking Tobacco: Former Cigarettes Smokeless Tobacco: Never Tobacco Cessation:Counseling Given: Not Answered Comments Unknown Sex and Gender Information Value Date Recorded Sex Assigned at Not on file Legal Sex Female 6:21 AM DIRECTOR OF REIMBURSEMENT Gender Identity Not on file Sexual Orientation Not on file Plan of Treatment Health Maintenance Due Date Last Done Comments COLOGUARD (AGES 45-75) - COLON CA SCREENING 1965 CT COLONOGRAPHY - COLON CA SCREENING 1965 FIT - COLON CA SCREENING 1965 FLEX SIG - COLON CA SCREENING 1963 HIV SCREENING 11/05/1978 HEPATITIS C SCREENING 11/01/1981 DTAP/TDAP/TD VACCINES (1 - Tdap) 11/05/1982 PAP SMEAR 01/30/2001 01/30/1998 PNEUMOCOCCAL VACCINE 50+ (1 of 1 - PCV) 11/05/2013 ZOSTER VACCINE (1 of 2) 11/05/2013 MAMMOGRAM 02/29/2024 02/28/2022, 12/0 10/2021, 10/08/2019, Additional history exists DEPRESSION SCREENING 03/24/2024 COVID-19 VACCINE (1 - 2024- season) 2024 INFLUENZA VACCINE (#1) 2024 9, 12/11/2017, 01/17/2017, Additional history exists COLON MONITORING 02/13/2031 02/13/2021 COLONOSCOPY - COLON CA SCREENING 02/13/2031 02/13/2021 Colorectal Cancer Screening 02/13/2031 Respiratory Syncytial Virus (RSV) Vaccine Pt: or over 60 yrs (1 - 1-dose 75+ series) 11/05/2038 HEPATITIS B VACCINE Aged Out No longe r eligible based on patient's age to complete this topic HIB VACCINE Aged Out No longer eligi ble based on patient's age to complete this topic HPV VACCINE Aged Out No longer eligi ble based on patient's age to complete this topic MENINGOCOCCAL (Group B) VACCINE SHARED DECISION-MAKING Aged Out No longer eligible based on patient's age to complete this topic MENINGOCOCCAL GROUPS A/C/Y/W VACCINE Aged Out No longer eligible based on patient's age to complete this topic Procedures Procedure Name Priority Date/Time Associated Diagnosis Comments CYTOLOGY SMEAR PAP THIN PREP MADELINE 01/30/1998 11:08 AM DIRECTOR OF REIMBURSEMENT from Last 3 Months or Most Recently Relevant to Health Maintenance Results * CYTOLOGY SMEAR PAP THIN PREP (01/30/1998 11:08 AM DIRECTOR OF REIMBURSEMENT) Result CASE NUMBER [id number] Comment: ORDERING PHYSICIAN MADDY PETERS SPECIMEN TYPE PAP Smear Date 01/30/1998 Procedure Cervical/Endocervical, 1 Vial for Thin Prep Received Specimen Adequacy Satisfactory for Evaluation Categorization Within Normal Limits Comment Inflammation Present. Snomed. 02/08/1998 1616 <1> Legal Transcriber Esvin Costello(ASCP) PAP Footnote The PAP smear is only a screening procedure to aid in the detection of cervical cancer and its precursors. It is not a diagnostic procedure and should not be used as the sole means to detect cervical cancer. Both false negative and false positive results have been experienced. MISCELLANEOUS SAMPLES / Unknown 01/30/1998 11:08 AM DIRECTOR OF REIMBURSEMENT 02/06/1998 11:08 AM DIRECTOR OF REIMBURSEMENT Historical Provider LAB - PATHOLOGY/CYTOLOGY ORDERABLES Final Result from Last 3 Months or Most Recently Relevant to Health Maintenance Insurance MEDICAID - OUT OF [facility] Care Teams River Rat Relationship Specialty Start Date End Date Daxa Londono PA-C PCP - General 05/21/19
--- OUTSIDE RECORDS SUMMARY | 2025-03-18 12:59 | XMS_ITS | Encounter Summary ---
Author Organization [facility] Address [address] [place] [address] Phone Care Team Providers Care Cloth Grader Name Role Phone Cayden Pedraza MD Unavailable Tiago Nguyen MD Unavailable Erika Kumar APRN, HEAT PUMP INSTALLER Primary Care Provider [phone] Reason for Visit * Reason Comments Medication Refill Encounter Details Date Type Department Care Team (Late st Contact Info) Description 02/04/2025 Refill [facility] - [facility] #[address] [place] [address] Cayden Pedraza MD #[address] [address] Medication Refill Social History Tobacco Use Types Packs/Day Years [...] declined 09/30/2024 How often do you attend jehovah's witness or mandaeism serv ices? Patient declined 09/30/2024 Do you belong to any clubs o r organizations such as jehovah's witness groups, unions, fraternal or athletic groups, or [...] medical care, and heating? Patient declined 09/30/2024 [facility] of Occupat ional [facility] - Occupational Stress Questionnaire Answer Date Recorded [...] any time in the past 12 m [facility], were you homeless or living in a jail (including now)? Patient declined 09/30/2024 [facility] Utilities Answer Date Recorded In the past 12 months has th e electric, gas, oil, or water company threatened to shut off services in your home? 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 Not on file Not on file documented as of this encounter Plan of Treatment Upcoming Encounters Date Type Department Care Team (Late st Contact Info) Description 04/21/2025 10:15 AM SALVAGER HELPER Office Visit [facility] - [facility]ocr[facility]ology - [place] #[address] [place] [phone] Cayden Pedraza MD #2 [facility] [address] [place] [address] 06/09/2025 10:00 AM CDT [facility] #[address] [place] [phone] Tiago Nguyen MD #2 [facility] [address] [place] [address] documented as of this encounter Visit Diagnoses Not on filedocumented in this encounter Care Teams Cloth Grader Relationship Specialty Start Date End Date José, STACEY James CNP #2 [facility] [address] [place] [address] PCP - General Family Medicine 10/14/24 Cayden Pedraza MD #[address] [phone] Consulting Physician Endocrinology 10/12/24 Tiago Nguyen MD #2 [facility] [address] [place] [address] Consulting Physician Urology 10/12/24 documented as of this encounter
--- OUTSIDE RECORDS SUMMARY | 2025-03-18 12:59 | XMS_ITS | Encounter Summary ---
Author Organization [facility] Address [address] [place] [address] Phone Care Team Providers Care Educational Administrator Name Role Phone Yoan Humphries MD Primary Care Provider [phone] Iman Levine CARBON ELECTRODES SUPERVISOR, BRIM WELT SEWING MACHINE OPERATOR Unavailable [phone] Cayden Pedraza MD Unavailable Tiago Nguyen MD Unavailable Erika Kumar CARBON ELECTRODES SUPERVISOR, BRIM WELT SEWING MACHINE OPERATOR Primary Care Provider [phone] Encounter Details Date Type Department Care Team (Late st Contact Info) Description 10/01/2024 Telephone [facility] #[address] [place] [address] Brandee Maier MD #[address] [address] Social History Tobacco Use Types Packs/Day Years [...] declined 09/30/2024 How often do you attend amish or hindu serv ices? Patient declined 09/30/2024 Do you belong to any clubs o r organizations such as amish groups, unions, fraternal or athletic groups, or [...] medical care, and heating? Patient declined 09/30/2024 [facility] of Occupat ional [facility] - Occupational Stress Questionnaire Answer Date [...] any time in the past [address] [facility], were you homeless or living in a group home (including now)? Patient declined 09/30/2024 [facility] Utilities Answer Date Recorded In the past 12 months has th e electric, gas, oil, or water company threatened to shut off services in your home? 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 * Telephone Encounter - Brandee Maier MD - 10/01/2024 1:44 PM CDT Cysto stent pull in 2 weeks documented in this encounter Plan of Treatment Upcoming Encounters Date Type Department Care Team (Late st Contact Info) Description 04/21/2025 10:15 AM REFRIGERATOR GLAZIER Office Visit [facility] - Endocrinology - [place] #[address] [place] [address] Cayden Pedraza MD #2 [facility] [address] [place] [phone] 06/09/2025 10:00 AM CDT Office Visit [facility] #[address] [place] [phone] Tiago Nguyen MD #[address] [address] documented as of this encounter Visit Diagnoses Not on filedocumented in this encounter Care Teams Educational Administrator Relationship Specialty Start Date End Date Yoan Humphries MD [address] [place], [place] [phone] PCP - General Internal Medicine 11/17/15 10/13/24 Erika Kumar APRN, BRIM WELT SEWING MACHINE OPERATOR #[address] [address] PCP - General Family Medicine 10/14/24 Iman Levine APRN, BRIM WELT SEWING MACHINE OPERATOR #[address] [address] Nurse Practitioner Cardiology 05/20/23 10/03/24 Cayden Pedraza MD #[address] [phone] Consulting Physician Endocrinology 10/12/24 Tiago Nguyen MD #[address] [address] Consulting Physician Urology 10/12/24 documented as of this encounter
--- OUTSIDE RECORDS SUMMARY | 2025-03-18 13:00 | XMS_ITS | Continuity of Care Document ---
Author Organization [facility] MANDOP[facility]rick Brenner (Adult Med) Address [address] [place] [address] Care Team Providers Care Watch Supervisor Name Role Phone ERIKA CAMARA Primary Care Provider Assessment No assessment recorded. Plan of Treatment Reminders Order Date Submit Date Provider Last Modified By Organization Details Last Modified Time Details Appointments ANY 15 2024 10:45A M Erika Camara APN, FNP-Homar Not available Not available Not available ANY 15 2025 09:45A M Erika Camara APN, FNP-C Not available Not available Not available Lab HbA1c (hemoglob in A1c), blood 2024 025 In-Office Order, Internal Use Only DO Not Attach Compendium DO Not Attach Compendium, Do Not Delete/merge, [id number] 01/11/2025 12:06:17 Referral None recorded. Procedures None recorded. Surgeries None recorded. Imaging None recorded. Medication Orders losartan 25 mg tablet 2024 025 [place] [address] [place], [address], 01/11/2025 12:06:19 rosuvasta tin 20 mg tablet 2024 025 [place] [address] [place], [address], 01/11/2025 12:06:19 gabapenti n 100 mg tablet 2024 025 [place] [address] [place], [address], 01/11/2025 12:06:19 Patient TargetsNo targets recorded. Patient Instructions Encounter Date Encounter Id Patient Instructions Last Modified By Organization Details Last Modified Time 01/11/2025 [id number] A healthy lifestyle: care instructions Not available 01/11/2025 12:06:17 learning about high blood pressure Not available 01/11/2025 14:23:31 hypothyroidism: care instructions Not available 01/11/2025 14:24:31 Continue to work on diet and decrease A1C to < 7 with fasting glucose 100. Need to see eye drLeanna each year for dilated eye exam. Increase activity level to get exercise most days of the week. Work on eating more fresh fruit, veggies and lean protein and less packaged foods. Cut back on the fatty foods, add fish oil or omega three fatty acids; red yeast rice may also help. Drink more water! Low salt diet. Take all medications as prescribed. Keep appointments with PCP and all specialists. Not available 01/11/2025 11:46:24 f/u 3 months DWP barriers to care: none Not available 01/11/2025 11:46:26 Reason for Referral None Reported. Results Created Date Observation Date Name Description Value Unit Range Abnormal Flag Note LastModifiedBy Organization Detail LastModifiedTime 01/12/20 25 01/11/2025 HbA1c (hemo globi n A1c), blood HbA1C 6.6 % Not Available In-Office Order Internal Use Only DO Not Attach Compendium DO Not Attach Compendium, Do Not Delete/merge, [id number] 01/11/2025 11:58:48 Result Notes None recorded. Problems Name Problem SNOMED Code Status Onset Date Resolution Date Notes Provider Name and Address Organization Details Recorded Time Liver function tests outside referenc e range 590814462 Active 09/12- fatty liver -sees Dr.Karad moisés Humphries MD Attn: Emmanuel starr,[address] [facility], [place], [address], [facility] - [facility] 2 10:53:10 Diabetes mellitus 06936179 Active Yoan Humphries MD Attn: Emmanuel starr,[address] [facility], [place], [address], [place] - [facility] 2 10:28:19 Hyperlip idemia 53139460 Active Yoan Humphries MD Attn: Emmanuel starr,[address] [facility], [place], [address], [place] [facility] 2 10:28:19 Hypothyr oidism 10993269 Active Yoan Humphries MD Attn: Emmanuel starr,[address] [facility], [place], [address], [place] [facility] 2 10:28:19 Pain of elbow region 14391036 Completed 01/16/2016 Yoan Humphries MD Attn: Emmanuel starr,[address] [facility], [place], [address], [place] - [facility] 6 11:31:48 Microalb uminuria 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 Active Yoan Humphries MD Attn: Emmanuel starr,[address] [facility], [place], [address], [place] [facility] 2 10:28:19 Cough 53489253 Completed 01/16/2016 Yoan Humphries MD Attn: Emmanuel starr,[address] [facility], [place], [address], [place] - [facility] 6 11:31:39 Acute bronchit is 07578948 Completed 01/16/2016 Yoan Humphries MD Attn: Emmanuel starr,[address] [facility], [place], [address], [place] [facility] 6 11:31:30 Primary fibromya lgia syndrome 92891894 Active Yoan Humphries MD Attn: Emmanuel starr,[address] [facility], [place], [address], [place] [facility] 2 10:28:19 Overweig ht 191696556 Active Yoan Humphries MD Attn: Claudioalberto starr,[address] [facility], [place], [address], [place] [facility] 2 10:28:19 Dizzines s 577118868 Active Aishwarya Almazan MA null, [place] - [facility] 9 08:59:15 Dysuria 30455650 Completed 01/16/2016 Yoan Humphries MD Attn: Claudioalberto starr,[address] [facility], [place], [address], [place] [facility] 6 11:31:43 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 Aishwarya Almazan MA null, [place] - [facility] 9 08:59:15 History of syncope 83741795893 9109 Active 2019 carotid doppler /echo 05/2019-o k Yoan Humphries MD Attn: Claudioalberto starr,[address] [facility], [place], [address], [place] [facility] 0 13:43:05 Vulvodyn ia 972837282 Active 2022 DIANA FINNEY MD Attn: Emmanuel g,[address] [facility], [place], [address], [place] [facility] 3 17:25:50 Dyspareu david 07564807 Active 2022 DIANA FINNEY MD Attn: Claudioalberto g,[address] [facility], [place], [address], [place] [facility] 3 17:25:48 Candidal vulvovag initis 19029181 Active 2022 DIANA FINNEY MD Attn: Accountalberto g,[address] [facility], [place], [address], [place] [facility] 3 14:54:45 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 Procedures Surgical History Date Name Laterality Status Provider Name and Address Organization Details Recorded Time 10/02/19 25 removal of urinary calculus completed Betina Israel [place] 10/12/2024 11:09:38 02/15/20 21 Colonoscopy & polypectomy completed Yoan Humphries MD Attn: Accounting,[address] [facility], [place], [address], [facility] - [facility] 02/21/2021 14:44:52 10/08/19 20 Date of Last Mammogram completed Betina Israel [place] - [place] 01/17/2022 11:15:14 10/08/19 20 Most Recent Mammogram completed Betina Israel [place] - [place] 01/17/2022 11:15:07 10/17/19 17 Cerumen Removal completed Yoan Humphries MD Attn: Accounting,[address] [facility], [place], [address], [facility] - [facility] 10/16/2016 14:58:59 03/29/19 09 Date of Last Pap Smear completed Sarai Zarco MA [facility] 03/11/2014 14:36:21 03/24/19 Total hysterectomy completed Aishwarya Almazan [place] 09/30/2016 15:32:15 Breast Surgery completed Sarai Zarco [place] 03/11/2014 14:36:21 Caesarean Section completed Sarai Zarco [place] 03/11/2014 14:36:21 Tonsillectomy completed Lux Daugherty [facility] 04/22/2014 14:10:53 Imaging Results None recorded. Procedure Notes None recorded. Medical Equipment None Reported. Allergies Allergen ID Allergen Name Allergen Category Reaction Reaction Severity Criticality Documentation Date Start Date Code Code System Note Provider Name and Address Organization Details Recorded Time 50904 Product containin g penicilli n (product) medicatio n Not available Not available Not available 03/11/2014 08927 8001 SNOMED Sarai Zarco MA null, [place] - [facility] 4 14:36:21 093676 morphine medicatio n Not available Not available Not available 02/11/2019 7052 RxNorm Yumiko Glass null, [place] - [facility] 9 14:57:13 95352 lisinopri l medicatio n cough Not available Not available 08/19/2014 52973 RxNorm cough Yoan Humphries MD Attn: Accountin g,[address] [facility], [place], [address] - [facility] 5 15:18:40 Medications Name Sig Start Date Stop Date Status Note LastModified by Organization Details LastModified Time Boric Acid Ovules Place one ovule vaginall y every day at bedtime for 14 days. 07/26 completed Not Available Not Available Not Available Boric Acid Ovules 04/01 completed Not Available Not Available Not Available Boric Acid Ovules Place one ovule in vagina every day at bedtime for 14 nights. 2022 active Not Available Not Available Not Avai lable Boric Acid Ovules Place one ovule in vagina every day at bedtime for 14 nights. 10/01 completed Not Available Not Available Not Available Boric Acid Ovules insert 1 ovule in vagina daily for 2 weeks (make sure to wash hands before insertin g) 2022 active Not Available Not Available Not Avai lable Boric Acid Ovules Place one ovule vaginall y every day at bedtime for 14 days. 06/20 completed Not Available Not Available Not Available lido/anta abhijeet/benad ryl TAKE 5-10 ML BY MOUTH FOUR TIMES DAILY NEEDED 11/20 completed Not Available Not Available Not Available Boric Acid Ovules Take 1 600mg ovules daily for 2 weeks 2022 active Not Available Not Available Not Avai lable lancets use to check blood sugars twice daily 04/11 completed Not Available Not Available Not Available Boric Acid Ovules active Not Available Not Available Not Available metformin 500 mg tablet TAKE TWO TABLETS BY MOUTH TWO TIMES a DAY 2024 active Not Available Not Available Not Avai lable levothyro xine 175 mcg tablet TAKE ONE TABLET BY MOUTH DAILY 10/16 completed Not Available Not Available Not Available levothyro xine 137 mcg tablet TAKE ONE TABLET BY MOUTH EVERY DAY 2024 active Not Available Not Available Not Avai lable gabapenti n 600 mg tablet TAKE 1 TABLET BY MOUTH THREE (3) TIMES a DAY 2024 active Not Available Not Available Not Avai lable doxycycli ne hyclate 100 mg capsule TAKE 1 CAPSULE BY MOUTH TWICE DAILY FOR 10 DAYS 11/19 completed Not Available Not Available Not Available atorvasta tin 10 mg tablet active Not Available Not Available Not Available azithromy samuel 250 mg tablet TAKE 2 TABLETS BY MOUTH ON DAY 1, AND THEN TAKE 1 TABLET BY MOUTH ONCE A DAY ON DAY 2 THROUGH DAY 5 05/28 completed Not Available Not Available Not Available fluconazo le 150 mg tablet Take 1 tablet by oral route as directed for 2 days. 04/01 completed Not Available Not Available Not Available cimetidin e 400 mg tablet TAKE ONE (1) TABLET BY MOUTH TWICE DAILY 2024 active Not Available Not Available Not Avai lable ranitidin e 300 mg tablet TAKE ONE TABLET BY MOUTH AT BEDTIME 07/25 completed Not Available Not Available Not Available hydrocodo ne 5 mg-acetam inophen 325 mg tablet TAKE 1 TABLET BY MOUTH EVERY 6 HOURS NEEDED FOR MODERATE TO SEVERE PAIN 10/12 completed Not Available Not Available Not Available Claritin 10 mg tablet Take 1 tablet every day by oral route. active OTC Not Available Not Available No t Available meloxicam 15 mg tablet TAKE ONE TABLET BY MOUTH DAILY NEEDED-U SE SPARINGL Y 05/28 completed Not Available Not Available Not Available ondansetr on HCl 4 mg tablet TAKE 1 TO 2 TABLETS BY MOUTH EVERY 8 HOURS NEEDED FOR NAUSEA 01/11 completed Not Available Not Available Not Available gabapenti n 400 mg capsule TAKE ONE (1) CAPSULE( S) THREE (3) TIMES a DAY BY ORAL ROUTE. 01/20 completed Not Available Not Available Not Available simvastat in 10 mg tablet Take by oral route for 30 days. 02/10 completed Not Available Not Available Not Available acetamino phen 300 mg-codein e 30 mg tablet 01/17 completed Not Available Not Available Not Available ciproflox acin 500 mg tablet TAKE 1 TABLET BY MOUTH TWICE DAILY FOR 3 DAYS 10/12 completed Not Available Not Available Not Available sulfameth oxazole 800 mg-trimet hoprim 160 mg tablet Take 1 tablet every 12 hours by oral route for 7 days. 03/30 completed Not Available Not Available Not Available doxycycli ne monohydra te 100 mg tablet 02/27 completed Not Available Not Available Not Available tramadol 50 mg tablet TAKE ONE (1) TABLET EVERY DAY BY ORAL ROUTE NEEDED. 07/18 completed not taking Not Available Not Available Not Available triamcino lone acetonide 0.1 % topical cream APPLY a THIN LAYER TO THE AFFECTED AREA(S) BY TOPICAL ROUTE TWO (2) TIMES PER DAY active Not Available Not Available No t Available glimepiri de 2 mg tablet TAKE 1 TABLET(S ) (2MG) ONE TIME DAILY BY ORAL ROUTE. 03/18 completed Not Available Not Available Not Available ketorolac 10 mg tablet TAKE 1 TABLET BY MOUTH EVERY 6 HOURS NEEDED FOR MODERATE TO SEVERE PAIN 05/28 completed Not Available Not Available Not Available famotidin e 20 mg tablet 05/17 completed Not Available Not Available Not Available tamsulosi n 0.4 mg capsule TAKE 1 CAPSULE BY MOUTH DAILY FOR 10 DAYS 01/11 completed Not Available Not Available Not Available meclizine 25 mg tablet TAKE 1 TABLET(S ) 3 TIMES A DAY BY ORAL ROUTE NEEDED. 2024 active Not Available Not Available Not Avai lable phenazopy ridine 100 mg tablet TAKE 1 TABLET BY MOUTH THREE TIMES DAILY FOR 3 DAYS 01/11 completed Not Available Not Available Not Available WelChol 625 mg tablet Take 2 tablets twice a day by oral route for 30 days. 02/27 completed Not Available Not Available Not Available glimepiri de 4 mg tablet TAKE ONE TABLET BY MOUTH EVERY DAY 2024 active Not Available Not Available Not Avai lable levothyro xine 150 mcg tablet TAKE ONE TABLET BY MOUTH EVERY DAY 11/19 completed Not Available Not Available Not Available losartan 25 mg tablet TAKE ONE TABLET(S ) EVERY DAY BY ORAL ROUTE. 2024 active Not Available Not Available Not Avai lable oxybutyni n chloride ER 5 mg tablet,ex tended release 24 hr TAKE 1 TABLET BY MOUTH ONCE DAILY FOR 10 DAYS 01/11 completed Not Available Not Available Not Available gabapenti n 300 mg capsule TAKE 1 CAPSULE( S) 3 TIMES A DAY BY ORAL ROUTE. 04/11 completed Not Available Not Available Not Available lisinopri l 5 mg tablet Take 1 tablet every day by oral route. active On hold beause patient is C/O cough Not Available Not Available Not Available mupirocin 2 % topical ointment apply a small amount to the affected area by topical route 2 timesa a day 12/11 completed Not Available Not Available Not Available diclofena c sodium 50 mg tablet,de layed release TAKE 1 TABLET TWICE a DAY BY ORAL ROUTE WITH MEAL(S). 2024 active Not Available Not Available Not Avai lable gabapenti n 100 mg capsule TAKE 1 CAPSULE TWICE a DAY BY MOUTH 2024 active Not Available Not Available Not Avai lable ibuprofen 600 mg tablet Take 1 tablet every day by oral route with meals. 02/27 completed Not Available Not Available Not Available estradiol 0.01% (0.1 mg/gram) vaginal cream Insert 2g vaginall y every night for 14 nights, then insert 1g vaginall y three times weekly (M, W, F) for maintena nce dose. 06/20 completed Not Available Not Available Not Available methylpre dnisolone 4 mg tablets in a dose pack 01/08 completed Not Available Not Available Not Available ondansetr on 4 mg disintegr ating tablet active Not Available Not Available Not Available fluticaso ne propionat e 50 mcg/actua tion nasal spray,darrion pension USE ONE (1) SPRAY INTO EACH NOSTRIL ONCE a DAY 11/19 completed Not Available Not Available Not Available doxycycli ne hyclate 100 mg tablet Take 1 tablet twice a day by oral route for 7 days. 02/27 completed Not Available Not Available Not Available naproxen 500 mg tablet TAKE ONE TABLET(S ) EVERY DAY BY ORAL ROUTE NEEDED FOR THIRTY DAYS. 01/15 completed Not Available Not Available Not Available Ventolin HFA 90 mcg/actua tion aerosol inhaler INHALE 2 PUFFS 3 TIMES A DAY BY INHALATI ON ROUTE NEEDED 03/25 completed Not Available Not Available Not Available meclizine 25 mg chewable tablet TAKE ONE (1) TABLET(S ) THREE (3) TIMES a DAY BY ORAL ROUTE NEEDED. 05/28 completed Not Available Not Available Not Available rosuvasta tin 20 mg tablet po 1 tab daily 2024 active Not Available Not Available Not Avai lable nitrofura ntoin monohydra te/macroc rystals 100 mg capsule Take 1 capsule every 12 hours by oral route for 7 days. 04/18 completed Not Available Not Available Not Available gabapenti n 100 mg tablet Take 1 tablet twice a day by oral route. 2024 active Not Available Not Available Not Avai lable Byetta 5 mcg/dose (250 mcg/mL)1. 2 mL subcutane ous pen injector INJECT 5 MICROGRA M(S) TWICE A DAY BY SUBCUTAN EOUS ROUTE. 03/05 completed pt to d/c if trulicit y approves Not Available Not Available Not Available fenofibra te 160 mg tablet TAKE ONE TABLET BY MOUTH DAILY active Not Available Not Available No t Available Lyrica 75 mg capsule Take 1 capsule twice a day by oral route. 05/28 completed Not Available Not Available Not Available Fish Oil 03/25 completed Not Available Not Available Not Available Januvia 50 mg tablet TAKE ONE TABLET(S ) EVERY DAY BY ORAL ROUTE. 2014 active Not Available Not Available Not Avai lable Trueresul t Blood Glucose System kit 11/03 completed Not Available Not Available Not Available Virtussin AC 10 mg-100 mg/5 mL oral liquid Take 10 mL as needed by oral route at bedtime. 09/30 completed Not Available Not Available Not Available Bydureon 2 mg/0.65 mL subcutane ous pen injector Inject 2 mg every week by subcutan eous route. 12/12 completed Not Available Not Available Not Available Jardiance 10 mg tablet TAKE ONE TABLET BY MOUTH EVERY DAY active Not Available Not Available No t Available Jardiance 25 mg tablet TAKE ONE (1) TABLET EVERY DAY BY ORAL ROUTE. 11/01 completed Not Available Not Available Not Available Contrave 8 mg-90 mg tablet,ex tended release TAKE ONE TABLET BY MOUTH EVERY DAY FOR 7 DAYS THEN TAKE ONE TABLET 12/11 completed Not Available Not Available Not Available Trulicity 1.5 mg/0.5 mL subcutane ous pen injector Inject by subcutan eous route. active Not Available Not Available No t Available Trulicity 0.75 mg/0.5 mL subcutane ous pen injector Inject 0.75 mg every week by subcutan eous route. 03/05 completed Not Available Not Available Not Available OneTouch Verio Flex Meter 11/19 completed Not Available Not Available Not Available TechLITE Pen Needle 32 gauge x 5/32 USE WITH INSULIN PEN TWO TIMES A DAY DIRECTED BY PHYSICIA N 11/19 completed Not Available Not Available Not Available TechLITE Pen Needle 31 gauge x 3/16 05/28 completed Not Available Not Available Not Available Ozempic 0.25 mg or 0.5 mg (2 mg/1.5 mL) subcutane ous pen injector 06/04 completed Not Available Not Available Not Available Steglatro 5 mg tablet TAKE 1 TABLET(S ) EVERY DAY BY ORAL ROUTE. 03/10 completed insuranc e denied Not Available Not Available Not Available OneTouch Delica Plus Lancet 33 gauge TEST BLOOD SUGAR DAILY 11/19 completed Not Available Not Available Not Available Rybelsus 14 mg tablet TAKE 1 TABLET BY MOUTH EVERY DAY 01/11 completed Not Available Not Available Not Available Rybelsus 7 mg tablet active Not Available Not Available Not Available Rybelsus 3 mg tablet TAKE 1 TABLET EVERY DAY BY ORAL ROUTE. active Not Available Not Available No t Available Ozempic 1 mg/dose (4 mg/3 mL) subcutane ous pen injector Inject by subcutan eous route for 28 days. 11/18 completed Not Available Not Available Not Available Contour Plus Test Strip TAKE 1 STRIP EVERY DAY BY MISCELL. ROUTE. 2024 active Not Available Not Available Not Avai lable Vitals Date Recorded Body height Body mass index (BMI) Body weight Respiratory rate Body temperature Oxygen saturation Heart rate Systolic And Diastolic Provider Name and Address Organization Details Last Updated DateTime 5 160.02 cm 29.9 kg/m2 72774.1 1 g 16 /min 98 [degF] 98 % 88 /min 164/92 mm[Hg] RAVI Gordon [facility] 5 11:43:10 Social History Question Answer Notes LastModified by Organizat ion Details LastModified Time Tobacco Smoking Status Former Smoker Quit in 2012 Sarai Zarco MA [facility], [place] - [facility] 03/11/2014 14:36:20 Do You Have An Advance Directive? No Information not available 08/15/2020 Are You Blind Or Do You Have Difficulty Seeing? Yes Glasses Information not available 07/18/2022 What Is Your Level Of Caffeine Consumption? Moderate Coffee Information not available 01/11/2025 How Much Tobacco Do You Chew? None Information not available 11/16/2015 In The 14 Days Before Symptom Onset, Have You Had Close Contact With A Laboratory-confir med COVID-19 While That Case Was Ill? No Information not available 08/31/2019 In The 14 Days Before Symptom Onset, Have You Had Close Contact With A Person Who Is Under Investigation For COVID-19 While That Person Was Ill? No Information not available 08/15/2020 Have You Been To An Area Known To Be High Risk For COVID-19? No Information not available 08/31/2019 Are You Deaf Or Do You Have Serious Difficulty Hearing? No Information not available 08/15/2020 What Type Of Diet Are You Following? REGULAR Information not available 01/11/2025 Which Illicit Or Recreational Drugs Have You Used? No rreiter Information not available 03/11/2014 Education 12 Some College Information not available 01/17/2017 What Is The Highest Grade Or Level Of School You Have Completed Or The Highest Degree You Have Received? [id number] Information not available 08/15/2020 Are There Any Guns Present In Your Home? Yes Information not available 11/02/2018 Marital Status Informatio n not available 11/16/2015 What Was The Date Of Your Most Recent Tobacco Screening? 01/11/2025 Information not available 01/11/2025 Performs Monthly Self-breast Exam? Yes Information no t available 04/11/2020 What Is Your Relationship Status? Information not available 08/15/2020 Do You Use Your Seat Belt Or Car Seat Routinely? Yes Information not available 08/15/2020 Seat Belts Used Routinely Yes Information not available 11/02/2018 Smoke Alarm In Home Yes Information not available 05/24/2019 Do You Have Smoke And Carbon Monoxide Detectors In Your Home? Yes Information not available 08/15/2020 At What Age Did You Start Smoking Tobacco? 13 Information not available 11/16/2015 Are You Passively Exposed To Smoke? No Information no t available 05/28/2024 How Much Tobacco Do You Smoke? No Information not available 11/02/2018 General Stress Level Low Low - Med Information not available 04/11/2020 Do You Use Sunscreen Routinely? No Information not available 11/02/2018 Has Tobacco Cessation Counseling Been Provided? No Information not available 10/01/2018 Sex: Female Functional Status Question Answer Note LastModified by Organizat ion Details LastModified Time Do you use any illicit or recreational drugs? No Information not available 08/15/2020 Do you or have you ever used any other forms of tobacco or nicotine? No Information not available 08/15/2020 What is your level of alcohol consumption? None once a year Information not available 02/21/2021 Do you or have you ever used smokeless tobacco? Never used smokeless tobacco Information not available 11/02/2018 Are you currently employed? No Information not available 08/15/2020 Are you able to care for yourself independently? Yes Information not available 08/15/2020 What is your occupation? unemployed [email or web address] Information not available 02/11/2019 Do you or have you ever used e-cigarettes or vape? Never used electronic cigarettes Information not available 11/02/2018 What is your exercise level? None active Information not available 07/18/2022 Mental Status Question Answer Note LastModified by Organization D etails LastModified Time Do you feel stressed (tense, restless, nervous, or anxious, or unable to sleep at night)? [id number] Information not available 08/15/2020 Family History Relationship Description Onset Age of this Age Resolved Age Notes LastModified by Organization Details LastModified Time Mother Diabetes mellitus Not available 2015 15:00:39 Mother Malignant neoplasm of uterus Not available 2015 15:00:39 Father Diabetes mellitus Not available 2015 15:00:39 Father Hypertensive disorder Not available 2015 15:00:39 Father Malignant neoplasm of liver 72 77 [email or web address] Not available 01/17 11:29:44 Maternal Grandmother Malignant neoplasm of liver Not available 2015 15:00:39 Paternal Grandmother Malignant neoplasm of lung Not available 2015 15:00:39 Maternal Grandfather Malignant neoplasm of lung Not available 2015 15:00:39 Medical History Condition Response Anxiety Disorder N Diabetes Y Muscle, Joint, or Bone Problems Y Coronary Artery Disease N Atrial Fibrillation N High Blood Pressure N Seizures/Epilepsy N Acid Reflux (GERD) Y Cancer N Stroke N Thyroid Problems Y Kidney or Bladder Problems N Asthma N Allergies Y Blood Clots N COPD N Depression N GI Problems N Skin Problems N Anemia N High Cholesterol Y Hepatitis N Liver Disease Y Heart Attack ([place]) N Headaches Y Heart Failure N Gynecological History Statement/Question Response Date of Last Pap Smear 03/29/2008 Current Control Method Hysterectom y Date of Last Mammogram 10/08/2019 Most Recent Mammogram 10/08/2019 LMP Approximate Obstetrics History GPAL:G 3 P 0 3 0 4 Type Value Multiple Births 1 Full Term 0 Induced 0 Spontaneous 0 Premature 3 Living 4 Ectopics 0 Total 3 Immunizations Vaccine Type Date Status Note Provider Nam e and Address Organization Details Recorded Time Tdap 6 completed Not Available [facility] 04/10/2019 02:43:39 Influenza, split virus, quadrivalent, preservative 6 completed Not Available [facility] 04/10/2019 02:32:31 Influenza, split virus, quadrivalent, preservative 7 completed Not Available [facility] 04/10/2019 02:34:27 Influenza, split virus, quadrivalent, preservative 8 completed Not Available [facility] 04/10/2019 02:39:54 Influenza, split virus, quadrivalent, preservative 9 completed Not Available [facility] 04/10/2019 02:38:15 Influenza, split virus, quadrivalent, preservative 5 completed Not Available [facility] 04/10/2019 02:32:09 Past Encounters Encounter ID Performer Location Encounter Start Date Encounter Closed Date Diagnosis/Indication Diagnosis SNOMED-CT Code Diagnosis ICD10 Code Diagnosis IMO Codes Diagnosis Note [id number] Aracely olivia, MD [facility] ([facility] [address] [place] [address] 01/11/2025 11:21:17 01/12/2025 10:00:19 Diabetes mellitus 85846298 E11.9 -last a1c 7.29 Feb 2024,3/7/2 5-8./-7.410/2 04/17-6.6Co ntinue metformin /glimeprid e-off of jardiance due to yeast vaginitisc hanged trulicity- losartan- resume Hypothyroidism 54304564 E03.9 continue levothyrox ine 137 mcg dailyPatie nt follows with Endocrine as well Hyperlipidemia 55450645 E78.2 with fatty liver( seeing GI) -cont rosuvastat in monitor lft pt to loose wt Primary fi bromyalgia syndrome 96491335 M79.7 pt is on gabapentin 600mg qhs, will add 100 mg for day/noon dosing pt to do yoga stretchesp t open to trying Cymbalta Overweight 137594415 E66 .3 advised low fat, low cholestero l diet, regular exercise and weight reduction. Essential hypertension 23444900 I10 26629 Patient was previously on losartan, unsure if this was for just diabetic management or true high blood pressure, blood pressure is elevated today so we will resume losartan 25 mg per day Health Concerns Section Related Observation LastModified by Organization Detai ls LastModified Time None Recorded Concern Status LastModified by Organization Details LastModified Time None Recorded Payers Encounter Date Sequence Insurance Name Policy Number Policy Sahni Covered Member ID Sahni Member ID Guarantor Name 01/11/2025 1 FOR[facility]LY [facility] (MEDICAID HMO) [id number] Brigette Coughlin [id number] Brigette Coughlin 01/11/2025 2 *SELF PAY* Nalini Bales Notes Date Note Type Note Provider Name and Address Organization Details Recorded Time 5 text/html HyperlipidemiaReported by PatientHPIFor type of hyperlipidemia, patient reportscombined. For duration, patient reportschronic. For control, patient reportsnot at goal. For compliance, patient reportsnoncompliant with dietbut reportscompliantandexercise s. For risk factors, patient reportsdiabetesandobesity. For complications, patient reportsno coronary artery disease. Diabetes F/UReported by PatientHPIFor associated symptoms, patient reportsincreased urination (denied dysuria or abdominal pain)andnumbness of feetbut reportsno weight gain,no dizziness, andno calluses on feet. For labs, patient reportslast a1c result: 7.8. For context, patient reportsseeing eye doctor regularly,checking feet regularly,taking aspirin daily,not missing doses of medications, andno side effects from medications.dr lakhani started pt back on trulicity 2 months ago and pt states she has had leg pain since. pt states she is currently taking a lower dose of gabapentin so is unsure if thats what causing her leg pain ThyroidReported by PatientHPIFor context, patient reportshistory of hypothyroidism. For associated symptoms, patient reportsfatigueandsleep difficultiesbut reportsno weight loss,no palpitations,no constipation, andno depression. For modifying factors, patient reportsmedication (thyroid pill- taking med as prescribed.). For duration, (chronic). FibromyalgiaReported by PatientHPIFor pain in joints or muscles, patient reportspain of joints or muscles. For aggravating factors, patient reportscannot identify. For associated symptoms, patient reportsmorning stiffnessandabnormal skin sensitivity. For frequency, patient reportsintermittent. For location, patient reportsarmandlegs. For severity, (fairly stable). pt is seeing GI for elevated LFT. Erika Camara APN, CHILD DEVELOPMENT INSTRUCTOR-C Attn: [facility],[address] [place], [address], [facility] 01/11/2025 14:25:17 OBGyn Episode No OBEpisode recorded.
--- OUTSIDE RECORDS SUMMARY | 2025-03-18 13:01 | XMS_ITS | Data Portability ---
Author Organization [facility] Address [address] [facility] [place] [address] Care Team Providers Care Project Planner Name Role Phone ERIKA CAMARA Primary Care Provider Assessment No assessment recorded. Plan of Treatment Reminders Order Date Submit Date Provider Last Modified By Organization Details Last Modified Time Details Appointments ANY 15 2024 10:45A M Erika Camara APN, REGIONAL FACILITIES MANAGER-C Not available Not available Not available ANY 15 2025 09:45A M Erika Camara APN, REGIONAL FACILITIES MANAGER-C Not available Not available Not available Lab HbA1c (hemoglob in A1c), blood 2024 025 In-Office Order, Internal Use Only DO Not Attach Compendium DO Not Attach Compendium, Do Not Delete/merge, [id number] 01/11/2025 12:06:17 HbA1c (hemoglob in A1c), blood 2024 025 In-Office Order, Internal Use Only DO Not Attach Compendium DO Not Attach Compendium, Do Not Delete/merge, [id number] 09/16/2024 15:12:29 drug screen, urine 2024 025 [facility], [address] [facility], [facility] [address], [place], [address], 05/31/2024 12:09:56 HbA1c (hemoglob in A1c), blood 2024 025 [facility], [address] [facility], [facility] [address], [place], [address], 05/29/2024 10:37:14 albumin/c reatinine , mass ratio, urine [address] [facility], [address] [facility] [address], [place], [address], 05/29/2024 10:37:13 Referral None recorded. Procedures None recorded. Surgeries None recorded. Imaging None recorded. Medication Orders losartan 25 mg tablet 2024 025 [place] [address] [place], [address], 01/11/2025 12:06:19 rosuvasta tin 20 mg tablet 2024 025 [place] [address] [place], [address], 01/11/2025 12:06:19 gabapenti n 100 mg tablet 2024 025 [place] [address], [place], [address], 01/11/2025 12:06:19 rosuvasta tin 20 mg tablet 2024 025 [place] [address], [place], [address], 09/16/2024 15:12:31 rosuvasta tin 20 mg tablet 2024 025 [place] [address] [place], [address], 09/16/2024 14:45:54 Lyrica 75 mg capsule 2024 025 [place] [address] [place], [address], 05/28/2024 13:42:14 Patient TargetsNo targets recorded. Patient Instructions Encounter Date Encounter Id Patient Instructions Last Modified By Organization Details Last Modified Time 04/22/2024 [id number] f/u in 4 month maggy Not available 04/22/2024 12:54:31 05/28/2024 [id number] A healthy lifestyle: care instructions Not available 05/28/2024 12:54:34 thumb arthritis: exercises Not available 05/28/2024 13:41:30 Continue to work on diet and decrease A1C to < 7 with fasting glucose 100. Need to see eye dr. each year for dilated eye exam. Increase [...] with PCP and all specialists. Not available 05/28/2024 13:41:42 f/u 3 months DW P barriers to care: none Not available 05/28/2024 13:41:34 09/16/2024 [id number] A healthy lifestyle: care instructions Not available 09/16/2024 15:12:29 A healthy lifestyle: care instructions Not available 09/16/2024 15:12:29 Continue to work on diet and decrease A1C to < 7 with fasting glucose 100. Need to see eye dr. each year for dilated eye exam. Increase [...] with PCP and all specialists. Not available 09/16/2024 14:56:55 f/u 3 months DWP barriers to care: none Not available 09/16/2024 14:56:57 10/12/2024 [id number] A healthy lifestyle: care instructions Not available 10/18/2024 23:57:02 Increase intake of fresh fruits, and vegetables. Avoid packaged foods and fast foods. Follow a low salt diet, drink at least 8-10 8oz glasses of water a day, exercise most days of the week. Take all medications as prescribed. Keep appointments with PCP and all specialists. Not available 10/18/2024 23:57:10 keep f/u as planned/3 months or sooner if needed Not available 10/18/2024 23:57:23 01/11/2025 [id number] A healthy lifestyle: care instructions Not available 01/11/2025 12:06:17 learning about high blood pressure Not available 01/11/2025 14:23:31 hypothyroidism: care instructions Not available 01/11/2025 14:24:31 Continue to work on diet and decrease A1C to < 7 with fasting glucose 100. Need to see eye dr. each year for dilated eye exam. Increase [...] Abnormal Flag Note LastModifiedBy Organization Detail LastModifiedTime 05/09/1905/09/2024 CBC W Auto Diffe renti al panel - Blood leukocytes [#/volume] in blood by automated count 9.41 text: 4.00 - 12.00 10(3)/ mcL WBC 9.41 4.00 - 12.00 10(3) /mcL 05/09 10:52 AM VOCATIONAL INSTRUCTOR [facility] Not Available Not Available 05/28/2024 03:25:45 05/09/19 25 05/09/2024 CBC W Auto Diffe renti al panel - Blood erythrocytes [#/volume] in blood by automated count 4.48 text: 3.80 - 5.30 10(6)/ mcL RBC 4.48 3.80 - 5.30 10(6) /mcL 05/09 10:52 AM [facility] Not Available Not Available 05/28/2024 03:25:45 05/09/1905/09/2024 CBC W Auto Diffe renti al panel - Blood hemoglobin [mass/volume ] in blood 13.2 g/dL low: 12g/dL high: 15.8g/ dL HEMOG LOBIN (HGB) 13.2 12.0 - 15.8 g/dL 05/09 10:52 AM [facility]OCATIONAL IN[facility] Not Available Not Available 05/28/2024 03:25:45 05/09/1905/09/2024 CBC W Auto Diffe renti al panel - Blood hematocrit [volume fraction] of blood by automated count 40.1 % low: 36%hig h: 47% HEMAT OCRIT (HCT) 40.1 36.0 - 47.0 % 05/09 10:[address] [facility] Not Available Not Available 05/28/2024 03:25:45 05/09/19 25 05/09/2024 CBC W Auto Diffe renti al panel - Blood MCV [entitic volume] by automated count 89.5 fL low: 82fLhi gh: 96fL MCV 89.5 82.0 - 96.0 fL 05/09 10:[address] [facility] Not Available Not Available 05/28/2024 03:25:45 05/09/19 25 05/09/2024 CBC W Auto Diffe renti al panel - Blood MCH [entitic mass] by automated count 29.5 pg low: 26pghi gh: 34pg MCH 29.5 26.0 - 34.0 pg 05/09 10:[address] [facility] Not Available Not Available 05/28/2024 03:25:45 05/09/19 25 05/09/2024 CBC W Auto Diffe renti al panel - Blood MCHC [mass/volume ] by automated count 32.9 g/dL low: 31g/dL high: 36g/dL MCHC 32.9 31.0 - 36.0 g/dL 05/09 10:52 AM VOCATIONAL INSTRUCTOR [facility] Not Available Not Available 05/28/2024 03:25:45 05/09/19 25 05/09/2024 CBC W Auto Diffe renti al panel - Blood platelets [#/volume] in blood 247 text: 140 - 440 10(3)/ mcL PLATE LET COUNT 247 140 - 440 10(3) /mcL 05/09 10:52 AM VOCATIONAL INSTRUCTOR [facility] Not Available Not Available 05/28/2024 03:25:45 05/09/19 25 05/09/2024 CBC W Auto Diffe renti al panel - Blood erythrocyte distribution width [ratio] by automated count 11.9 % low: 11.8%h igh: 15.5% RDW 11.9 11.8 - 15.5 % 05/09 10:[address] [facility] Not Available Not Available 05/28/2024 03:25:45 05/09/1905/09/2024 CBC W Auto Diffe renti al panel - Blood platelet mean volume [entitic volume] in blood by automated count 9.9 fL low: 9.7fLh igh: 12.4fL MPV 9.9 9.7 - 12.4 fL 05/09 10:[address] [facility] Not Available Not Available 05/28/2024 03:25:45 05/09/19 25 05/09/2024 CBC W Auto Diffe renti al panel - Blood neutrophils/ 100 leukocytes in blood by automated count 64.9 % low: 47%hig h: 73% NEUTR OPHIL S 64.9 47.0 - 73.0 % 05/09 10:52 AM [facility] IN[facility] Not Available Not Available 05/28/2024 03:25:45 05/09/19 25 05/09/2024 CBC W Auto Diffe renti al panel - Blood lymphocytes/ 100 leukocytes in blood by automated count 23.2 % low: 18%hig h: 42% LYMPH OCYTE S 23.2 18.0 - 42.0 % 05/09 10:52 AM [facility]OCATIONAL INSTRUCTOR [facility] Not Available Not Available 05/28/2024 03:25:45 05/09/19 25 05/09/2024 CBC W Auto Diffe renti al panel - Blood monocytes/10 0 leukocytes in blood by automated count 8.3 % low: 4%high : 12% MONOC YTES 8.3 4.0 - 12.0 % 05/09 10:52 AM VOCATIONAL INSTRUCTOR [facility] Not Available Not Available 05/28/2024 03:25:45 05/09/1905/09/2024 CBC W Auto Diffe renti al panel - Blood eosinophils/ 100 leukocytes in blood by automated count 2.9 % low: 0%high : 5% EOSIN OPHIL S 2.9 0.0 - 5.0 % 05/09 10:52 AM [facility] Not Available Not Available 05/28/2024 03:25:45 05/09/19 25 05/09/2024 CBC W Auto Diffe renti al panel - Blood basophils/10 0 leukocytes in blood by automated count 0.7 % low: 0%high : 1% BASOP HILS 0.7 0.0 - 1.0 % 05/09 10:52 AM VOCATIONAL INSTRUCTOR [facility] Not Available Not Available 05/28/2024 03:25:45 05/09/1905/09/2024 CBC W Auto Diffe renti al panel - Blood neutrophils [#/volume] in blood by automated count 6.11 text: 1.60 - 7.70 10(3)/ mcL ABSOL STACI NEUTR OPHIL S 6.11 1.60 - 7.70 10(3) /mcL 05/09 10:52 AM VOCATIONAL INSTRUCTOR [facility] Not Available Not Available 05/28/2024 03:25:45 05/09/19 25 05/09/2024 CBC W Auto Diffe renti al panel - Blood lymphocytes [#/volume] in blood by automated count 2.18 text: 1.30 - 3.20 10(3)/ mcL ABSOL STACI LYMPH OCYTE S 2.18 1.30 - 3.20 10(3) /mcL 05/09 10:52 AM VOCATIONAL INSTRUCTOR [facility] Not Available Not Available 05/28/2024 03:25:45 05/09/19 25 05/09/2024 CBC W Auto Diffe renti al panel - Blood monocytes [#/volume] in blood by automated count 0.78 text: 0.20 - 1.00 10(3)/ mcL ABSOL STACI MONOC YTES 0.78 0.20 - 1.00 10(3) /mcL 05/09 10:52 AM VOCATIONAL INSTRUCTOR [facility] Not Available Not Available 05/28/2024 03:25:45 05/09/19 25 05/09/2024 CBC W Auto Diffe renti al panel - Blood eosinophils [#/volume] in blood by automated count 0.27 text: 0.00 - 0.40 10(3)/ mcL ABSOL STACI EOSIN OPHIL 0.27 0.00 - 0.40 10(3) /mcL 05/09 10:52 AM VOCATIONAL INSTRUCTOR [facility] Not Available Not Available 05/28/2024 03:25:45 05/09/1905/09/2024 CBC W Auto Diffe renti al panel - Blood basophils [#/volume] in blood by automated count 0.07 text: 0.00 - 0.10 10(3)/ mcL ABSOL STACI BASOP HILS 0.07 0.00 - 0.10 10(3) /mcL 05/09 10:52 AM VOCATIONAL INSTRUCTOR [facility] Not Available Not Available 05/28/2024 03:25:45 05/09/1905/09/2024 CBC W Auto Diffe renti al panel - Blood nucleated erythrocytes /100 leukocytes [ratio] in blood 0 NRBC PER 100 WBC 0 05/09 10:52 AM VOCATIONAL INSTRUCTOR [facility] Not Available Not Available 05/28/2024 03:25:45 05/09/19 25 05/09/2024 Compr ehens melvi metab olic 1999 panel - Serum or Plasm a sodium [moles/volum e] in serum or plasma 137 mmol/ L low: 136mmo l/Lhig h: 145mmo l/L SODIU M 137 136 - 145 mmol/ L 05/09 11:26 AM VOCATIONAL INSTRUCTOR [facility] Not Available Not Available 05/28/2024 03:25:44 05/09/19 25 05/09/2024 Compr ehens melvi metab olic 2000 panel - Serum or Plasm a potassium [moles/volum e] in serum or plasma 4.4 mmol/ L low: 3.5mmo l/Lhig h: 5.1mmo l/L POTAS SIUM 4.4 3.5 - 5.1 mmol/ L 05/09 11:26 AM [facility] IN[facility] Not Available Not Available 05/28/2024 03:25:44 05/09/1905/09/2024 Compr ehens melvi metab olic 2000 panel - Serum or Plasm a chloride [moles/volum e] in serum or plasma 101 mmol/ L low: 98mmol /Lhigh : 107mmo l/L CHLOR DINH 101 98 - 107 mmol/ L 05/09 11:26 AM VOCATIONAL INSTRUCTOR [facility] Not Available Not Available 05/28/2024 03:25:44 05/09/1905/09/2024 Compr ehens melvi metab olic 1999 panel - Serum or Plasm a carbon dioxide, total [moles/volum e] in serum or plasma 27 mmol/ L low: 22mmol /Lhigh : 30mmol /L CO2, VENOU S 27 22 - 30 mmol/ L 05/09 11:26 AM VOCATIONAL INSTRUCTOR [facility] Not Available Not Available 05/28/2024 03:25:44 05/09/19 25 05/09/2024 Compr ehens melvi metab olic 2000 panel - Serum or Plasm a anion gap in serum or plasma 13.4 mmol/ L high: 18mmol /L ANION GAP 13.4 <18.0 mmol/ L 05/09 11:[address] [facility] Not Available Not Available 05/28/2024 03:25:44 05/09/19 25 05/09/2024 Compr ehens melvi metab olic 2000 panel - Serum or Plasm a glucose [mass/volume ] in serum or plasma 212 mg/dL low: 70mg/d Lhigh: 99mg/d L high GLUCO SE 212 (H) 70 - 99 mg/dL 05/09 11:[address] [facility] Not Available Not Available 05/28/2024 03:25:44 05/09/19 25 05/09/2024 Compr ehens melvi metab olic 2000 panel - Serum or Plasm a urea nitrogen [mass/volume ] in serum or plasma 18 mg/dL low: 10mg/d Lhigh: 20mg/d L BUN 18 10 - 20 mg/dL 05/09 11:26 AM [facility] Not Available Not Available 05/28/2024 03:25:44 05/09/19 25 05/09/2024 Compr ehens melvi metab olic 2000 panel - Serum or Plasm a creatinine [mass/volume ] in serum or plasma 0.82 mg/dL low: 0.6mg/ dLhigh : 1mg/dL CREAT ININE , BLOOD 0.82 0.60 - 1.00 mg/dL 05/09 11:[address] [facility] Not Available Not Available 05/28/2024 03:25:44 05/09/19 25 05/09/2024 Compr ehens melvi metab olic 2000 panel - Serum or Plasm a urea nitrogen/cre atinine [mass ratio] in serum or plasma 22 text: 12 - 20 ratio high BUN/C REATI NINE RATIO 22 (H) 12 - 20 ratio 05/09 11:26 AM [facility] Not Available Not Available 05/28/2024 03:25:44 05/09/19 25 05/09/2024 Compr ehens melvi metab olic 2000 panel - Serum or Plasm a protein [mass/volume ] in serum or plasma 8.1 g/dL low: 6g/dLh igh: 8g/dL high TOTAL PROTE IN 8.1 (H) 6.0 - 8.0 g/dL 05/09 11:[address] [facility] Not Available Not Available 05/28/2024 03:25:44 05/09/19 25 05/09/2024 Compr ehens melvi metab olic 1999 panel - Serum or Plasm a albumin [mass/volume ] in serum or plasma 4.6 g/dL low: 3.5g/d Lhigh: 5g/dL ALBUM IN 4.6 3.5 - 5.0 g/dL 05/09 11:[address] [facility] Not Available Not Available 05/28/2024 03:25:44 05/09/19 25 05/09/2024 Compr Scoreloopens melvi metab olic 1999 panel - Serum or Plasm a albumin/glob ulin [mass ratio] in serum or plasma 1.3 low: 1high: 2.2 A/G RATIO 1.3 1.0 - 2.2 05/09 11:[address] [facility] Not Available Not Available 05/28/2024 03:25:44 05/09/19 25 05/09/2024 Compr Scoreloopens melvi metab olic 1999 panel - Serum or Plasm a calcium [mass/volume ] in serum or plasma 9.4 mg/dL low: 8.7mg/ dLhigh : 10.5mg /dL CALCI UM 9.4 8.7 - 10.5 mg/dL 05/09 11:[address] [facility] Not Available Not Available 05/28/2024 03:25:44 05/09/19 25 05/09/2024 Compr ehens melvi metab olic 1999 panel - Serum or Plasm a bilirubin.to chang [mass/volume ] in serum or plasma 0.3 mg/dL low: 0.2mg/ dLhigh : 1.2mg/ dL T BILI 0.3 0.2 - 1.2 mg/dL 05/09 11:[address] [facility] Not Available Not Available 05/28/2024 03:25:44 05/09/1905/09/2024 Compr ehens melvi metab olic 1999 panel - Serum or Plasm a aspartate aminotransfe rase [enzymatic activity/vol ume] in serum or plasma 31 U/L low: 6U/Lhi gh: 42U/L SGOT (AST) 31 6 - 42 U/L 05/09 11:[address] [facility] Not Available Not Available 05/28/2024 03:25:44 05/09/1905/09/2024 Compr ehens melvi metab olic 1999 panel - Serum or Plasm a alanine aminotransfe rase [enzymatic activity/vol ume] in serum or plasma 29 U/L low: 6U/Lhi gh: 55U/L SGPT (ALT) 29 6 - 55 U/L 05/09 11:[address] [facility] Not Available Not Available 05/28/2024 03:25:44 05/09/1905/09/2024 Compr Scoreloopens melvi metab olic 1999 panel - Serum or Plasm a alkaline phosphatase [enzymatic activity/vol ume] in serum or plasma 44 U/L low: 40U/Lh igh: 150U/L ALKAL INE PHOSP HATAS E 44 40 - 150 U/L 05/09 11:[address] [facility] Not Available Not Available 05/28/2024 03:25:44 05/09/1905/09/2024 Compr Scoreloopens melvi metab olic 1999 panel - Serum or Plasm a glomerular filtration rate/1.73 sq M.predicted among non-blacks [volume rate/area] in serum, plasma or blood by creatinine-b ased formula (MDRD) low: 60 GFR, ESTIM ATED >60 >=60 05/09 11:26 AM [facility] Not Available Not Available 05/28/2024 03:25:44 05/09/19 25 05/09/2024 Compr ehens melvi metab olic 2000 panel - Serum or Plasm a glomerular filtration rate/1.73 sq M.predicted among blacks [volume rate/area] in serum, plasma or blood by creatinine-b ased formula (MDRD) low: 60 GFR, EST. AFRIC AN >60 >=60 05/09 11:26 AM VOCATIONAL INSTRUCTOR [facility] Not Available Not Available 05/28/2024 03:25:44 05/09/1905/09/2024 Compr ehens melvi metab olic 2000 panel - Serum or Plasm a glomerular filtration rate/1.73 sq M.predicted among non-blacks [volume rate/area] in serum, plasma or blood by creatinine-b ased formula (MDRD) low: 60 GFR, EST. NONAF RICAN >60 >=60 05/09 11:26 AM VOCATIONAL INSTRUCTOR [facility] Not Available Not Available 05/28/2024 03:25:44 05/09/1905/09/2024 Compr ehens melvi metab olic 2000 panel - Serum or Plasm a interpretati on and review of laboratory results Abnorm al Not Available Not Available 03:25:44 05/29/1905/29/2024 ALBUM IN/CR EATIN INE RATIO ,URIN E creatinine, urine 70.8 mg/dL notest ab. Not Available [facility] ([facility]) [address] [place], [address], 05/29/2024 10:37:13 05/29/19 25 05/29/2024 ALBUM IN/CR EATIN INE RATIO ,URIN E albumin, urine 55.4 ug/mL notest ab. Not Available [facility] ([facility]) [address] [place], [address], 05/29/2024 10:37:13 05/29/19 25 05/29/2024 ALBUM IN/CR EATIN INE RATIO ,URIN E alb/creat ratio 78 mg/g_ creat 0-29 above high normal Rajani l: 0 - 29 Moder ately incre ased: 30 - 300 Sever henri incre ased: >300 Not Available [facility] ([facility]) [address] [facility], [place], [address], 05/29/2024 10:37:13 05/29/19 25 05/29/2024 HEMOG LOBIN A1C hemoglobin A1C 8.2 % 4.8-5. 6 above high normal Predi abete s: 5.7 - 6.4 Diabe josie: >6.4 Glyce vamsi contr ol for adult s with diabe josie: <7.0 Not Available [facility] ([facility]) [address] [facility], [place], [address], 05/29/2024 10:37:14 05/29/1905/28/2024 [id number] 12+OX YCODO NE+CR T-SCR please note: COMMEN T This assay provi soy a preli minar y uncon firme d jeny tical test resul t that may be suita ble for clini wendy manag ement of patie nts in certa in situa tions . Drug- test resul ts shoul d be inter prete d in the shahram xt of clini wendy infor adair [place] nt metab olic varia bles, speci fic drug chemi stry, and speci men wes cteri stics can affec t test outco me. Techn ical consu ltati on is avail able if a test resul t is incon siste nt with an expec dixie outco me. Email : [email or web address] [email or web address] [email or web address] Phone : [phone] Not Available [facility] ([facility]) [address] [facility], [place], [address], 05/31/2024 12:09:56 05/29/1905/29/2024 [id number] 12+OX YCODO NE+CR T-SCR amphetamines screen, urine NEGATI VE NG/mL cutoff =1000 Not Available [facility] ([facility]) [address] [facility], [place], [address], 05/31/2024 12:09:56 05/29/19 25 05/29/2024 [id number] 12+OX YCODO NE+CR T-SCR barbiturates screen, urine NEGATI VE NG/mL cutoff =200 Not Available [facility] ([facility]) [address] [place], [address], 05/31/2024 12:09:56 05/29/19 25 05/29/2024 [id number] 12+OX YCODO NE+CR T-SCR benzodiazepi valente screen, urine NEGATI VE NG/mL cutoff =200 Not Available [facility] ([facility]) [address] [place], [address], 05/31/2024 12:09:56 05/29/19 25 05/29/2024 [id number] 12+OX YCODO NE+CR T-SCR cannabinoid screen, urine NEGATI VE NG/mL cutoff =20 Not Available [facility] ([facility]) [address] [place], [address], 05/31/2024 12:09:56 05/29/19 25 05/29/2024 [id number] 12+OX YCODO NE+CR T-SCR cocaine (metab.) screen, urine NEGATI VE NG/mL cutoff =300 Not Available [facility] ([facility]) [address] [place], [address], 05/31/2024 12:09:56 05/29/19 25 05/29/2024 [id number] 12+OX YCODO NE+CR T-SCR opiate screen, urine NEGATI VE NG/mL cutoff =300 Opiat e test inclu soy Codei ne, Morph ine, [place] morph one, [place] codon e. Not Available [facility] ([facility]) [address] [place], [address], 05/31/2024 12:09:56 05/29/19 25 05/29/2024 [id number] 12+OX YCODO NE+CR T-SCR oxycodone/ox ymorphone, urine NEGATI VE NG/mL cutoff =100 Test inclu soy Oxyco done and Oxymo rphon e Not Available [facility] ([facility]) [address] [place], [address], 05/31/2024 12:09:56 05/29/19 25 05/29/2024 [id number] 12+OX YCODO NE+CR T-SCR phencyclidin e screen, urine NEGATI VE NG/mL cutoff =25 Not Available [facility] ([facility]) [address] [place], [address], 05/31/2024 12:09:56 05/29/19 25 05/29/2024 [id number] 12+OX YCODO NE+CR T-SCR methadone screen, urine NEGATI VE NG/mL cutoff =300 Not Available [facility] ([facility]) [address] [facility], [place], [address], 05/31/2024 12:09:56 05/29/19 25 05/29/2024 [id number] 12+OX YCODO NE+CR T-SCR propoxyphene screen, urine NEGATI VE NG/mL cutoff =300 Not Available [facility] ([facility]) [address] [place], [address], 05/31/2024 12:09:56 05/29/19 25 05/29/2024 [id number] 12+OX YCODO NE+CR T-SCR meperidine screen, urine NEGATI VE NG/mL cutoff =200 This test was devel oped and its perfo rmanc e wes cteri stics deter mined by [facility]. It has not been clear ed or appro con by the Food and Drug Admin istra tion. Not Available [facility] ([facility]) [address] [place], [address], 05/31/2024 12:09:56 05/29/19 25 05/29/2024 [id number] 0 12+OX YCODO NE+CR T-SCR fentanyl, urine NEGATI VE pg/mL cutoff =2000 Test inclu soy Fenta nyl and Norfe ntany l This test was devel oped and its perfo rmanc e wes cteri stics deter mined by [facility]. It has not been clear ed or appro con by the Food and Drug Admin istra tion. Not Available [facility] ([facility]) [address] [facility], [place], [address], 05/31/2024 12:09:56 05/29/19 25 05/29/2024 [id number] 0 12+OX YCODO NE+CR T-SCR tramadol screen, urine NEGATI VE NG/mL cutoff =200 Not Available [facility] ([facility]) [address] [place], [address], 05/31/2024 12:09:56 05/29/19 25 05/29/2024 [id number] 0 12+OX YCODO NE+CR T-SCR creatinine, urine 42.2 mg/dL 20.0-3 00.0 Not Available [facility] ([facility]) [address] [place], [address], 05/31/2024 12:09:56 05/29/19 25 05/29/2024 [id number] 0 12+OX YCODO NE+CR T-SCR pH, urine 6.4 4.5-8. 9 Not Available [facility] ([facility]) [address] [place], [address], 05/31/2024 12:09:56 09/17/19 25 09/16/2024 HbA1c (hemo globi n A1c), blood HbA1C 7.4 % Not Available In-Office Order Internal Use Only DO Not Attach Compendium DO Not Attach Compendium, Do Not Delete/merge, [id number] 09/16/2024 14:58:13 10/01/19 25 09/30/2024 Compr ehens melvi metab olic 1999 panel - Serum or Plasm a sodium [moles/volum e] in serum or plasma 140 mmol/ L low: 136mmo l/Lhig h: 145mmo l/L Not Available Not Available 10/12/2024 04:08:23 10/01/19 25 09/30/[facility] 1999 panel - Serum or Plasm a potassium [moles/volum e] in serum or plasma 4.8 mmol/ L low: 3.5mmo l/Lhig h: 5.1mmo l/L Not Available Not Available 10/12/2024 04:08:23 10/01/19 25 09/30/2024 Compr ens melvi metab ic 1999 panel - Serum or Plasm a chloride [moles/volum e] in serum or plasma 105 mmol/ L low: 98mmol /Lhigh : 107mmo l/L Not Available Not Available 10/12/2024 04:08:23 10/01/19 25 09/30/2024 [facility] 1999 panel - Serum or Plasm a carbon dioxide, total [moles/volum e] in serum or plasma 27 mmol/ L low: 22mmol /Lhigh : 30mmol /L Not Available Not Available 10/12/2024 04:08:23 10/01/19 25 09/30/2024 [facility] [employer] [facility] 1999 panel - Serum or Plasm a anion gap in serum or plasma by calculation 12.8 mmol/ L high: 18mmol /L Not Available Not Available 10/12/2024 04:08:23 10/01/19 25 09/30/2024 Compr ens melvi [employer] [facility] 1999 panel - Serum or Plasm a glucose [mass/volume ] in serum or plasma 168 mg/dL low: 70mg/d Lhigh: 99mg/d L high Not Available Not Available 10/12/2024 04:08:23 10/01/19 25 09/30/2024 [facility] [employer] [facility] 1999 panel - Serum or Plasm a urea nitrogen [mass/volume ] in serum or plasma 23 mg/dL low: 10mg/d Lhigh: 20mg/d L high Not Available Not Available 10/12/2024 04:08:23 10/01/19 25 09/30/2024 [facility] 1999 panel - Serum or Plasm a creatinine [mass/volume ] in serum or plasma 1.5 mg/dL low: 0.6mg/ dLhigh : 1mg/dL high Not Available Not Available 10/12/2024 04:08:23 10/01/19 25 09/30/2024 [facility] [employer] [facility] 1999 panel - Serum or Plasm a urea nitrogen/cre atinine [mass ratio] in serum or plasma 15 text: 12 - 20 ratio Not Available Not Available 10/12/2024 04:08:23 10/01/19 25 09/30/2024 [facility] [employer] [facility] 1999 panel - Serum or Plasm a protein [mass/volume ] in serum or plasma 8.4 g/dL low: 6g/dLh igh: 8g/dL high Not Available Not Available 10/12/2024 04:08:23 10/01/19 25 09/30/2024 [facility] [employer] [facility] 1999 panel - Serum or Plasm a albumin [mass/volume ] in serum or plasma 4.9 g/dL low: 3.5g/d Lhigh: 5g/dL Not Available Not Available 10/12/2024 04:08:23 10/01/19 25 09/30/2024 [facility] [employer] [facility] 1999 panel - Serum or Plasm a albumin/glob ulin [mass ratio] in serum or plasma 1.4 low: 1high: 2.2 Not Available Not Available 10/12/2024 04:08:23 10/01/19 25 09/30/2024 [facility] [employer] melvi [employer] [facility] 1999 panel - Serum or Plasm a calcium [mass/volume ] in serum or plasma 9.9 mg/dL low: 8.7mg/ dLhigh : 10.5mg /dL Not Available Not Available 10/12/2024 04:08:23 10/01/19 25 09/30/2024 [facility] [employer] melvi [employer] [facility] 1999 panel - Serum or Plasm a bilirubin.to chang [mass/volume ] in serum or plasma 0.2 mg/dL low: 0.2mg/ dLhigh : 1.2mg/ dL Not Available Not Available 10/12/2024 04:08:23 10/01/19 25 09/30/2024 [facility] ehens melvi metab olic 2000 panel - Serum or Plasm a aspartate aminotransfe rase [enzymatic activity/vol ume] in serum or plasma 37 U/L high: 43U/L Not Available Not Available 10/12/2024 04:08:23 10/01/19 25 09/30/2024 Compr ehens melvi metab olic 1999 panel - Serum or Plasm a alanine aminotransfe rase [enzymatic activity/vol ume] in serum or plasma 39 U/L high: 56U/L Not Available Not Available 10/12/2024 04:08:23 10/01/19 25 09/30/2024 Compr ehens melvi metab olic 1999 panel - Serum or Plasm a alkaline phosphatase [enzymatic activity/vol ume] in serum or plasma 67 U/L low: 40U/Lh igh: 150U/L Not Available Not Available 10/12/2024 04:08:23 10/01/1909/30/2024 Compr ehens melvi metab olic 1999 panel - Serum or Plasm a glomerular filtration rate [volume rate/area] in serum, plasma or blood by creatinine-b ased formula (CKD-epi 2020)/1.73 sq M 40 low: 60 low Creat inine Clear ance is the prefe rred crite igor for selec ting drug dose adjus tment s in renal ly impai red patie nts. The GFR is provi ded as addit ional perti nent clini wendy infor matio n. GFR is repor dixie in mL/mi n/1.7 3 sq m. Calcu latio n based on the Chron ic Kidne y Disea se Epide miolo gy Colla borat ion (CKD- EPI) equat ion refit witho ut adjus tment for race. Not Available Not Available 10/12/2024 04:08:23 10/01/19 25 09/30/2024 Compr ehens melvi metab olic 1999 panel - Serum or Plasm a glomerular filtration rate [volume rate/area] in serum, plasma or blood by creatinine-b ased formula (MDRD)/1.73 sq M among black population 43 low: 60 low Not Available Not Available 10/12/2024 04:08:23 10/01/19 25 09/30/2024 Compr ehens melvi metab olic 1999 panel - Serum or Plasm a glomerular filtration rate [volume rate/area] in serum, plasma or blood by creatinine-b ased formula (MDRD)/1.73 sq M among non black population 35 low: 60 low Not Available Not Available 10/12/2024 04:08:23 10/01/1909/30/2024 Compr ehens melvi metab olic 1999 panel - Serum or Plasm a interpretati on and review of laboratory results ABNORM AL Not Available Not Available 04:08:23 10/02/1910/01/2024 Gluco se [Mass /volu me] in Blood glucose [mass/volume ] in blood 129 mg/dL low: 70mg/d Lhigh: 99mg/d L high RN Notif ied Not Available Not Available 10/12/2024 04:08:23 10/02/1910/01/2024 Gluco se [Mass /volu me] in Blood interpretati on and review of laboratory results ABNORM AL Not Available Not Available 04:08:23 10/02/1910/01/2024 CBC W Auto Diffe renti al panel - Blood leukocytes [#/volume] in blood by automated count 7.11 text: 4.00 - 12.00 10(3)/ mcL Not Available Not Available 10/12/2024 04:08:34 10/02/1910/01/2024 CBC W Auto Diffe renti al panel - Blood erythrocytes [#/volume] in blood by automated count 3.95 text: 3.80 - 5.30 10(6)/ mcL Not Available Not Available 10/12/2024 04:08:34 10/02/1910/01/2024 CBC W Auto Diffe renti al panel - Blood hemoglobin [mass/volume ] in blood 11.5 g/dL low: 12g/dL high: 15.8g/ dL low Not Available Not Available 10/12/2024 04:08:34 10/02/19 25 10/01/2024 CBC W Auto Diffe renti al panel - Blood hematocrit [volume fraction] of blood by automated count 36.1 % low: 36%hig h: 47% Not Available Not Available 10/12/2024 04:08:34 10/02/19 25 10/01/2024 CBC W Auto Diffe renti al panel - Blood MCV [entitic mean volume] in red blood cells by automated count 91.4 fL low: 82fLhi gh: 96fL Not Available Not Available 10/12/2024 04:08:34 10/02/19 25 10/01/2024 CBC W Auto Diffe renti al panel - Blood MCH [entitic mass] by automated count 29.1 pg low: 26pghi gh: 34pg Not Available Not Available 10/12/2024 04:08:34 10/02/19 25 10/01/2024 CBC W Auto Diffe renti al panel - Blood MCHC [entitic mass/volume] in red blood cells by automated count 31.9 g/dL low: 31g/dL high: 36g/dL Not Available Not Available 10/12/2024 04:08:34 10/02/19 25 10/01/2024 CBC W Auto Diffe renti al panel - Blood platelets [#/volume] in blood 285 text: 140 - 440 10(3)/ mcL Not Available Not Available 10/12/2024 04:08:34 10/02/19 25 10/01/2024 CBC W Auto Diffe renti al panel - Blood erythrocyte [distwidth] in red blood cells by automated count 12.3 % low: 11.8%h igh: 15.5% Not Available Not Available 10/12/2024 04:08:34 10/02/19 25 10/01/2024 CBC W Auto Diffe renti al panel - Blood platelet [entitic mean volume] in blood by automated count 9.8 fL low: 9.7fLh igh: 12.4fL Not Available Not Available 10/12/2024 04:08:34 10/02/19 25 10/01/2024 CBC W Auto Diffe renti al panel - Blood neutrophils/ leukocytes in blood by automated count 56.9 % low: 47%hig h: 73% Not Available Not Available 10/12/2024 04:08:34 10/02/19 25 10/01/2024 CBC W Auto Diffe renti al panel - Blood lymphocytes/ leukocytes in blood by automated count 28.6 % low: 18%hig h: 42% Not Available Not Available 10/12/2024 04:08:34 07/11/20 25 10/01/2024 CBC W Auto Diffe renti al panel - Blood monocytes/le ukocytes in blood by automated count 9.8 % low: 4%high : 12% Not Available Not Available 10/12/2024 04:08:34 10/02/19 25 10/01/2024 CBC W Auto Diffe renti al panel - Blood eosinophils/ leukocytes in blood by automated count 3.2 % low: 0%high : 5% Not Available Not Available 10/12/2024 04:08:34 10/02/19 25 10/01/2024 CBC W Auto Diffe renti al panel - Blood basophils/le ukocytes in blood by automated count 1.1 % low: 0%high : 1% high Not Available Not Available 10/12/2024 04:08:34 10/02/19 25 10/01/2024 CBC W Auto Diffe renti al panel - Blood immature granulocyte 0.4 % low: 0%high : 0.4% Immat ure Granu locyt es inclu soy Metam yeloc ytes, Myelo cytes , and Promy elocy josie. Not Available Not Available 10/12/2024 04:08:34 10/02/19 25 10/01/2024 CBC W Auto Diffe renti al panel - Blood neutrophils [#/volume] in blood by automated count 4.04 text: 1.60 - 7.70 10(3)/ mcL Not Available Not Available 10/12/2024 04:08:34 10/02/19 25 10/01/2024 CBC W Auto Diffe renti al panel - Blood lymphocytes [#/volume] in blood by automated count 2.03 text: 1.30 - 3.20 10(3)/ mcL Not Available Not Available 10/12/2024 04:08:34 10/02/19 25 10/01/2024 CBC W Auto Diffe renti al panel - Blood monocytes [#/volume] in blood by automated count 0.7 text: 0.20 - 1.00 10(3)/ mcL Not Available Not Available 10/12/2024 04:08:34 10/02/19 25 10/01/2024 CBC W Auto Diffe renti al panel - Blood eosinophils [#/volume] in blood by automated count 0.23 text: 0.00 - 0.40 10(3)/ mcL Not Available Not Available 10/12/2024 04:08:34 10/02/19 25 10/01/2024 CBC W Auto Diffe renti al panel - Blood basophils [#/volume] in blood by automated count 0.08 text: 0.00 - 0.10 10(3)/ mcL Not Available Not Available 10/12/2024 04:08:34 10/02/19 25 10/01/2024 CBC W Auto Diffe renti al panel - Blood absolute immature granulocyte 0.03 text: 0.00 - 0.03 10 (3) mcL. Not Available Not Available 10/12/2024 04:08:34 10/02/19 25 10/01/2024 CBC W Auto Diffe renti al panel - Blood nucleated erythrocytes /leukocytes [ratio] in blood 0 Not Available Not Available 09/22 04:08:34 10/02/19 25 10/01/2024 CBC W Auto Diffe renti al panel - Blood interpretati on and review of laboratory results ABNORM AL Not Available Not Available 04:08:34 10/09/19 25 10/08/2024 CBC W Auto Diffe renti al panel - Blood leukocytes [#/volume] in blood by automated count 7.77 text: 4.00 - 12.00 10(3)/ mcL Not Available Not Available 10/12/2024 04:08:23 10/09/19 25 10/08/2024 CBC W Auto Diffe renti al panel - Blood erythrocytes [#/volume] in blood by automated count 3.55 text: 3.80 - 5.30 10(6)/ mcL low Not Available Not Available 10/12/2024 04:08:23 10/09/19 25 10/08/2024 CBC W Auto Diffe renti al panel - Blood hemoglobin [mass/volume ] in blood 10.3 g/dL low: 12g/dL high: 15.8g/ dL low Not Available Not Available 10/12/2024 04:08:23 10/09/19 25 10/08/2024 CBC W Auto Diffe renti al panel - Blood hematocrit [volume fraction] of blood by automated count 32.5 % low: 36%hig h: 47% low Not Available Not Available 10/12/2024 04:08:23 10/09/19 25 10/08/2024 CBC W Auto Diffe renti al panel - Blood MCV [entitic mean volume] in red blood cells by automated count 91.5 fL low: 82fLhi gh: 96fL Not Available Not Available 10/12/2024 04:08:23 10/09/19 25 10/08/2024 CBC W Auto Diffe renti al panel - Blood MCH [entitic mass] by automated count 29 pg low: 26pghi gh: 34pg Not Available Not Available 10/12/2024 04:08:23 10/09/19 25 10/08/2024 CBC W Auto Diffe renti al panel - Blood MCHC [entitic mass/volume] in red blood cells by automated count 31.7 g/dL low: 31g/dL high: 36g/dL Not Available Not Available 10/12/2024 04:08:23 10/09/19 25 10/08/2024 CBC W Auto Diffe renti al panel - Blood platelets [#/volume] in blood 299 text: 140 - 440 10(3)/ mcL Not Available Not Available 10/12/2024 04:08:23 10/09/19 25 10/08/2024 CBC W Auto Diffe renti al panel - Blood erythrocyte [distwidth] in red blood cells by automated count 12 % low: 11.8%h igh: 15.5% Not Available Not Available 10/12/2024 04:08:23 10/09/19 25 10/08/2024 CBC W Auto Diffe renti al panel - Blood platelet [entitic mean volume] in blood by automated count 9.4 fL low: 9.7fLh igh: 12.4fL low Not Available Not Available 10/12/2024 04:08:23 10/09/19 25 10/08/2024 CBC W Auto Diffe renti al panel - Blood neutrophils/ leukocytes in blood by automated count 51.3 % low: 47%hig h: 73% Not Available Not Available 10/12/2024 04:08:23 10/09/19 25 10/08/2024 CBC W Auto Diffe renti al panel - Blood lymphocytes/ leukocytes in blood by automated count 37.1 % low: 18%hig h: 42% Not Available Not Available 10/12/2024 04:08:23 10/09/19 25 10/08/2024 CBC W Auto Diffe renti al panel - Blood monocytes/le ukocytes in blood by automated count 6.7 % low: 4%high : 12% Not Available Not Available 10/12/2024 04:08:23 10/09/19 25 10/08/2024 CBC W Auto Diffe renti al panel - Blood eosinophils/ leukocytes in blood by automated count 3.2 % low: 0%high : 5% Not Available Not Available 10/12/2024 04:08:23 10/09/19 25 10/08/2024 CBC W Auto Diffe renti al panel - Blood basophils/le ukocytes in blood by automated count 0.9 % low: 0%high : 1% Not Available Not Available 10/12/2024 04:08:23 10/09/19 25 10/08/2024 CBC W Auto Diffe renti al panel - Blood immature granulocyte 0.8 % low: 0%high : 0.4% high Immat ure Granu locyt es inclu soy Metam yeloc ytes, Myelo cytes , and Promy elocy josie. Not Available Not Available 10/12/2024 04:08:23 10/09/19 25 10/08/2024 CBC W Auto Diffe renti al panel - Blood neutrophils [#/volume] in blood by automated count 3.99 text: 1.60 - 7.70 10(3)/ mcL Not Available Not Available 10/12/2024 04:08:23 10/09/19 25 10/08/2024 CBC W Auto Diffe renti al panel - Blood lymphocytes [#/volume] in blood by automated count 2.88 text: 1.30 - 3.20 10(3)/ mcL Not Available Not Available 10/12/2024 04:08:23 10/09/19 25 10/08/2024 CBC W Auto Diffe renti al panel - Blood monocytes [#/volume] in blood by automated count 0.52 text: 0.20 - 1.00 10(3)/ mcL Not Available Not Available 10/12/2024 04:08:23 10/09/19 25 10/08/2024 CBC W Auto Diffe renti al panel - Blood eosinophils [#/volume] in blood by automated count 0.25 text: 0.00 - 0.40 10(3)/ mcL Not Available Not Available 10/12/2024 04:08:23 10/09/19 25 10/08/2024 CBC W Auto Diffe renti al panel - Blood basophils [#/volume] in blood by automated count 0.07 text: 0.00 - 0.10 10(3)/ mcL Not Available Not Available 10/12/2024 04:08:23 10/09/1910/08/2024 CBC W Auto Diffe renti al panel - Blood absolute immature granulocyte 0.06 text: 0.00 - 0.03 10 (3) mcL. high Not Available Not Available 10/12/2024 04:08:23 10/09/19 25 10/08/2024 CBC W Auto Diffe renti al panel - Blood nucleated erythrocytes /leukocytes [ratio] in blood 0 Not Available Not Available 09/22 04:08:23 10/09/1910/08/2024 CBC W Auto Diffe renti al panel - Blood interpretati on and review of laboratory results ABNORM AL Not Available Not Available 04:08:23 10/09/1910/08/2024 Basic metab olic 1999 panel - Serum or Plasm a sodium [moles/volum e] in serum or plasma 138 mmol/ L low: 136mmo l/Lhig h: 145mmo l/L Not Available Not Available 10/12/2024 04:08:23 10/09/1910/08/2024 Basic metab olic 1999 panel - Serum or Plasm a potassium [moles/volum e] in serum or plasma 4.5 mmol/ L low: 3.5mmo l/Lhig h: 5.1mmo l/L Not Available Not Available 10/12/2024 04:08:23 10/09/19 25 10/08/2024 Basic metab olic 2000 panel - Serum or Plasm a chloride [moles/volum e] in serum or plasma 104 mmol/ L low: 98mmol /Lhigh : 107mmo l/L Not Available Not Available 10/12/2024 04:08:23 10/09/19 25 10/08/2024 Basic metab olic 1999 panel - Serum or Plasm a carbon dioxide, total [moles/volum e] in serum or plasma 23 mmol/ L low: 22mmol /Lhigh : 30mmol /L Not Available Not Available 10/12/2024 04:08:23 10/09/19 25 10/08/2024 Basic metab olic 1999 panel - Serum or Plasm a anion gap in serum or plasma by calculation 15.5 mmol/ L high: 18mmol /L Not Available Not Available 10/12/2024 04:08:23 10/09/19 25 10/08/2024 Basic metab olic 1999 panel - Serum or Plasm a glucose [mass/volume ] in serum or plasma 259 mg/dL low: 70mg/d Lhigh: 99mg/d L high Not Available Not Available 10/12/2024 04:08:23 10/09/19 25 10/08/2024 Basic metab olic 1999 panel - Serum or Plasm a urea nitrogen [mass/volume ] in serum or plasma 21 mg/dL low: 10mg/d Lhigh: 20mg/d L high Not Available Not Available 10/12/2024 04:08:23 10/09/19 25 10/08/2024 Basic metab olic 1999 panel - Serum or Plasm a creatinine [mass/volume ] in serum or plasma 0.89 mg/dL low: 0.6mg/ dLhigh : 1mg/dL Not Available Not Available 10/12/2024 04:08:23 10/09/19 25 10/08/2024 Basic metab olic 1999 panel - Serum or Plasm a urea nitrogen/cre atinine [mass ratio] in serum or plasma 24 text: 12 - 20 ratio high Not Available Not Available 10/12/2024 04:08:23 10/09/19 25 10/08/2024 Basic metab olic 1999 panel - Serum or Plasm a calcium [mass/volume ] in serum or plasma 9.2 mg/dL low: 8.7mg/ dLhigh : 10.5mg /dL Not Available Not Available 10/12/2024 04:08:23 10/09/19 25 10/08/2024 Basic metab olic 1999 panel - Serum or Plasm a IS the patient required to BE fasting? YES Not Available Not Available 10/12/2024 04:08:23 10/09/19 25 10/08/2024 Basic metab olic 2000 panel - Serum or Plasm a glomerular filtration rate [volume rate/area] in serum, plasma or blood by creatinine-b ased formula (CKD-epi 2020)/1.73 sq M low: 60 Creat inine Clear ance is the prefe rred crite igor for selec ting drug dose adjus tment s in renal ly impai red patie nts. The GFR is provi ded as addit ional perti nent clini wendy infor matio n. GFR is repor dixie in mL/mi n/1.7 3 sq m. Calcu latio n based on the Chron ic Kidne y Disea se Epide miolo gy Colla borat ion (CKD- EPI) equat ion refit witho ut adjus tment for race. Not Available Not Available 10/12/2024 04:08:23 10/09/19 25 10/08/2024 Basic metab olic 2000 panel - Serum or Plasm a glomerular filtration rate [volume rate/area] in serum, plasma or blood by creatinine-b ased formula (MDRD)/1.73 sq M among black population low: 60 Not Available Not Available 10/12/2024 04:08:23 10/09/19 25 10/08/2024 Basic metab olic 2000 panel - Serum or Plasm a glomerular filtration rate [volume rate/area] in serum, plasma or blood by creatinine-b ased formula (MDRD)/1.73 sq M among non black population low: 60 Not Available Not Available 10/12/2024 04:08:23 10/09/19 25 10/08/2024 Basic metab olic 2000 panel - Serum or Plasm a interpretati on and review of laboratory results ABNORM AL Not Available Not Available 04:08:23 10/15/19 25 10/14/2024 UR MICRO ALBUM IN/CR EATIN INE RATIO RANDO M microalbumin [mass/volume ] in urine 64.93 mg/dL No refer ence range has been estab lishe d. [facility]endy Corre latio n. Not Available Not Available 10/15/2024 10:46:44 10/15/19 25 10/14/2024 UR MICRO ALBUM IN/CR EATIN INE RATIO RANDO M creatinine [mass/volume ] in urine 86.9 mg/dL No refer ence range has been estab lishe dLeanna [facility] Romel evans n. Not Available Not Available 10/15/2024 10:46:44 10/15/19 25 10/14/2024 UR MICRO ALBUM IN/CR EATIN INE RATIO RANDO M microalbumin /creatinine [mass ratio] in urine 747 text: 0 - 30 mg/g cre high Not Available Not Available 10/15/2024 10:46:44 10/15/19 25 10/14/2024 UR MICRO ALBUM IN/CR EATIN INE RATIO RANDO M interpretati on and review of laboratory results ABNORM AL Not Available Not Available 10:46:44 10/15/19 25 10/14/2024 Compr ehens melvi metab olic 1999 panel - Serum or Plasm a sodium [moles/volum e] in serum or plasma 140 mmol/ L low: 136mmo l/Lhig h: 145mmo l/L Not Available Not Available 10/15/2024 10:46:44 10/15/19 25 10/14/2024 Compr ehens melvi metab olic 2000 panel - Serum or Plasm a potassium [moles/volum e] in serum or plasma 5 mmol/ L low: 3.5mmo l/Lhig h: 5.1mmo l/L Not Available Not Available 10/15/2024 10:46:44 10/15/19 25 10/14/2024 Compr ehens melvi metab olic 2000 panel - Serum or Plasm a chloride [moles/volum e] in serum or plasma 104 mmol/ L low: 98mmol /Lhigh : 107mmo l/L Not Available Not Available 10/15/2024 10:46:44 10/15/19 25 10/14/2024 Compr ehens melvi metab olic 2000 panel - Serum or Plasm a carbon dioxide, total [moles/volum e] in serum or plasma 27 mmol/ L low: 22mmol /Lhigh : 30mmol /L Not Available Not Available 10/15/2024 10:46:44 10/15/19 25 10/14/2024 Compr ehens melvi metab olic 2000 panel - Serum or Plasm a anion gap in serum or plasma by calculation 14 mmol/ L high: 18mmol /L Not Available Not Available 10/15/2024 10:46:44 10/15/19 25 10/14/2024 [facility] [employer] melvi [employer] ol 1999 panel - Serum or Plasm a glucose [mass/volume ] in serum or plasma 120 mg/dL low: 70mg/d Lhigh: 99mg/d L high Not Available Not Available 10/15/2024 10:46:44 10/15/19 25 10/14/2024 [facility] [employer] melvi [employer] olic 1999 panel - Serum or Plasm a urea nitrogen [mass/volume ] in serum or plasma 20 mg/dL low: 10mg/d Lhigh: 20mg/d L Not Available Not Available 10/15/2024 10:46:44 10/15/19 25 10/14/2024 [facility] [employer] 1999 panel - Serum or Plasm a creatinine [mass/volume ] in serum or plasma 0.87 mg/dL low: 0.6mg/ dLhigh : 1mg/dL Not Available Not Available 10/15/2024 10:46:44 10/15/19 25 10/14/2024 [facility] [employer] 1999 panel - Serum or Plasm a urea nitrogen/cre atinine [mass ratio] in serum or plasma 23 text: 12 - 20 ratio high Not Available Not Available 10/15/2024 10:46:44 10/15/19 25 10/14/2024 [facility] [employer] melvi [employer] ol 1999 panel - Serum or Plasm a protein [mass/volume ] in serum or plasma 8 g/dL low: 6g/dLh igh: 8g/dL Not Available Not Available 10/15/2024 10:46:44 10/15/19 25 10/14/2024 Compr [employer] melvi [employer] olic 1999 panel - Serum or Plasm a albumin [mass/volume ] in serum or plasma 4.8 g/dL low: 3.5g/d Lhigh: 5g/dL Not Available Not Available 10/15/2024 10:46:44 10/15/19 25 10/14/2024 Compr [employer] melvi [employer] olic 2000 panel - Serum or Plasm a albumin/glob ulin [mass ratio] in serum or plasma 1.5 low: 1high: 2.2 Not Available Not Available 10/15/2024 10:46:44 10/15/19 25 10/14/2024 Compr ehens melvi metab olic 2000 panel - Serum or Plasm a calcium [mass/volume ] in serum or plasma 10 mg/dL low: 8.7mg/ dLhigh : 10.5mg /dL Not Available Not Available 10/15/2024 10:46:44 10/15/19 25 10/14/2024 Compr ehens melvi metab olic 2000 panel - Serum or Plasm a bilirubin.to chang [mass/volume ] in serum or plasma 0.2 mg/dL low: 0.2mg/ dLhigh : 1.2mg/ dL Not Available Not Available 10/15/2024 10:46:44 10/15/19 25 10/14/2024 Compr ehens melvi metab olic 2000 panel - Serum or Plasm a aspartate aminotransfe rase [enzymatic activity/vol ume] in serum or plasma 39 U/L high: 43U/L Not Available Not Available 10/15/2024 10:46:44 10/15/19 25 10/14/2024 Compr ehens melvi metab olic 2000 panel - Serum or Plasm a alanine aminotransfe rase [enzymatic activity/vol ume] in serum or plasma 41 U/L high: 56U/L Not Available Not Available 10/15/2024 10:46:44 10/15/19 25 10/14/2024 Compr ehens melvi metab olic 2000 panel - Serum or Plasm a alkaline phosphatase [enzymatic activity/vol ume] in serum or plasma 61 U/L low: 40U/Lh igh: 150U/L Not Available Not Available 10/15/2024 10:46:44 10/15/19 25 10/14/2024 Compr ehens melvi metab olic 2000 panel - Serum or Plasm a IS the patient required to BE fasting? NO Not Available Not Available 10/15/2024 10:46:44 10/15/19 25 10/14/2024 Compr ehens melvi metab olic 2000 panel - Serum or Plasm a glomerular filtration rate [volume rate/area] in serum, plasma or blood by creatinine-b ased formula (CKD-epi 2020)/1.73 sq M low: 60 Creat inine Clear ance is the prefe rred crite igor for selec ting drug dose adjus tment s in renal ly impai red patie nts. The GFR is provi ded as addit ional perti nent clini wendy infor matio n. GFR is repor dixie in mL/mi n/1.7 3 sq m. Calcu latio n based on the Chron ic Kidne y Disea se Epide miolo gy Colla borat ion (CKD- EPI) equat ion refit witho ut adjus tment for race. Not Available Not Available 10/15/2024 10:46:44 10/15/19 25 10/14/2024 Compr ehens melvi metab olic 2000 panel - Serum or Plasm a glomerular filtration rate [volume rate/area] in serum, plasma or blood by creatinine-b ased formula (MDRD)/1.73 sq M among black population low: 60 Not Available Not Available 10/15/2024 10:46:44 10/15/19 25 10/14/2024 Compr ehens melvi metab olic 2000 panel - Serum or Plasm a glomerular filtration rate [volume rate/area] in serum, plasma or blood by creatinine-b ased formula (MDRD)/1.73 sq M among non black population low: 60 Not Available Not Available 10/15/2024 10:46:44 10/15/19 25 10/14/2024 Compr ehens melvi metab olic 2000 panel - Serum or Plasm a interpretati on and review of laboratory results ABNORM AL Not Available Not Available 10:46:44 01/12/20 25 01/11/2025 HbA1c (hemo globi n A1c), blood HbA1C 6.6 % Not Available In-Office Order Internal Use Only DO Not Attach Compendium DO Not Attach Compendium, Do Not Delete/merge, [id number] 01/11/2025 11:58:48 06/03/1905/21/2024 XR, hand, 3 or more view No observ ation record ed. [email or web address] [facility] 1 [facility] [place], [address], 06/02/2024 13:01:19 06/03/1905/21/2024 XR, toe(s ), 2 or more view No observ ation record ed. [email or web address] [facility] 1 [facility], [place], [address], 06/02/2024 13:00:22 Result Notes None recorded. Problems Name Problem SNOMED Code Status Onset Date Resolution Date Notes Provider Name and Address Organization Details Recorded Time Liver function tests outside referenc e range 315128222 Active 09/12- fatty liver -sees Dr.Karad moisés Humphries MD Attn: Accountin g,[address] [facility], [place], [address], [place] [facility] 2 10:53:10 Diabetes mellitus 41166713 Active Yoan Humphries MD Attn: Accountin g,[address] [facility], [place], [address], [place] [facility] 2 10:28:19 Hyperlip idemia 55397062 Active Yoan Humphries MD Attn: Accountin g,[address] [facility], [place], [address], [place] [facility] 2 10:28:19 Hypothyr oidism 92334497 Active Yoan Humphries MD Attn: Accountin g,[address] [facility], [place], [address], [place] [facility] 2 10:28:19 Pain of elbow region 96372045 Completed 01/16/2016 Yoan Humphries MD Attn: Accountin g,[address] [facility], [place], [address], [place] [facility] 6 11:31:48 Microalb uminuria 196487455 Active Yoan Humphries MD Attn: Emmanuel g,[address] [facility], [place], [address], [place] [facility] 2 10:28:19 Cough 57577589 Completed 01/16/2016 Yoan Humphries MD Attn: Emmanuel ro,[address] [facility], [place], [address], [place] [facility] 6 11:31:39 Acute bronchit is 47067480 Completed 01/16/2016 Yoan Humphries MD Attn: Emmanuel starr,[address] 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, [place], [address], [place] [facility] 2 10:28:19 Overweig ht 157142945 Active Yoan Humphries MD Attn: Claudioalberto starr,[address] [facility], [place], [address], [place] [facility] 2 10:28:19 Dizzines s 534165765 Active Aishwarya Almazan [place] null, [place] [facility] 9 08:59:15 Dysuria 48546484 Completed 01/16/2016 Yoan Humphries MD Attn: Claudioalberto starr,[address] 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, [place], [address], [place] [facility] 0 13:43:05 Vulvodyn ia 952478268 Active 2022 DIANA FINNEY MD Attn: Emmanuel ro,[address] [facility], [place], [address], [place] [facility] 3 17:25:50 Dyspareu david 17211587 Active 2022 DIANA FINNEY MD Attn: Emmanuel starr,[address] [facility], [place], [address], [place] [facility] 3 17:25:48 Candidal vulvovag initis 24466174 Active 2022 DIANA FINNEY MD Attn: Emmanuel starr,[address] 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, [place], [address], [place] [facility] 3 12:53:07 Chest pain 50460562 Active 2023 with multiple risk factors - evaluate d by cardio Yoan Humphries MD Attn: Emmanuel starr,[address] [facility], [place], [address], [place] [facility] 4 11:53:52 Pain in right thumb 96770923400 20740 Active 2024 Erika Camara APN, REGIONAL FACILITIES MANAGER-C Attn: Emmanuel starr,[address] [facility], [place], [address], [place] [facility] 5 13:41:08 Problem Notes None recorded. Procedures Surgical History Date Name Laterality Status Provider Name and Address Organization Details Recorded Time 10/02/19 25 removal of urinary calculus completed Betina [place] [facility] 10/12/2024 11:09:38 02/15/20 21 Colonoscopy & polypectomy completed Yoan Humphries MD Attn: Accounting,[address] [facility], [place], [address], [place] [facility] 02/21/2021 14:44:52 10/08/19 20 Date of Last Mammogram completed Betina [place] [facility] 01/17/2022 11:15:14 10/08/19 20 Most Recent Mammogram completed Betina [place] [facility] 01/17/2022 11:15:07 10/17/19 17 Cerumen Removal completed Yoan Humphries MD Attn: Accounting,[address] , [place], [address], [facility] - [facility] 10/16/2016 14:58:59 03/29/19 09 Date of Last Pap Smear completed Sarai Zarco MA [facility] 03/11/2014 14:36:21 03/24/19 01 Total hysterectomy completed Aishwarya Almazan [place] [facility] 09/30/2016 15:32:15 Breast Surgery completed Sarai Zarco [place] [facility] 03/11/2014 14:36:21 Caesarean Section completed Sarai Zarco MA [facility] 03/11/2014 14:36:21 Tonsillectomy completed Luxbentley Daugherty [facility] 04/22/2014 14:10:53 Imaging Results None recorded. Procedure Notes None recorded. Medical Equipment None Reported. Allergies Allergen ID Allergen Name Allergen Category Reaction Reaction Severity Criticality Documentation Date Start Date Code Code System Note Provider Name and Address Organization Details Recorded Time 60830 Product containin g penicilli n (product) medicatio n Not available Not available Not available 03/11/2014 38556 8001 SNOMED Sarai Zarco MA null, [facility] 4 14:36:21 698403 morphine medicatio n Not available Not available Not available 02/11/2019 7052 RxNorm Yumiko Glass [facility], [facility] 9 14:57:13 67701 lisinopri l medicatio n cough Not available Not available 08/19/2014 47396 RxNorm cough Yoan Humphries MD Attn: Accountin g,[address] , [place], [address], [facility] - [facility] 5 15:18:40 Medications Name [...] active Not Available Not Available Not Avai labcornelius Baroneul t Blood Glucose System kit 11/03 completed [...] height Body mass index (BMI) Body weight Heart rate Respiratory rate Body temperature Oxygen saturation Systolic And Diastolic Provider Name and Address Organization Details Last Updated DateTime 5 160.02 cm 30.7 kg/m2 44925.2 g 93 /min 16 /min 97.5 [degF] 98 % 132/85 mm[Hg] Vianey Pfeiffer MA [facility] 5 12:27:01 Date Recorded Body height Body mass index (BMI) Body weight Oxygen saturation Respiratory rate Body temperature Heart rate Systolic And Diastolic Provider Name and Address Organization Details Last Updated DateTime 5 160.02 cm 30.3 kg/m2 93391.3 g 95 % 16 /min 98 [degF] 90 /min 120/82 mm[Hg] RAVI Gordon [facility] 5 12:30:11 Date Recorded Body height Body mass index (BMI) Body weight Oxygen saturation Heart rate Respiratory rate Body temperature Systolic And Diastolic Provider Name and Address Organization Details Last Updated DateTime 5 160.02 cm 30.5 kg/m2 12636.6 4 g 96 % 92 /min 18 /min 97.5 [degF] 130/81 mm[Hg] Lucila Turner MA [facility] 5 14:53:33 Date Recorded Body height Body mass index (BMI) Body weight Oxygen saturation Body temperature Heart rate Systolic And Diastolic Provider Name and Address Organization Details Last Updated DateTime 5 160.02 cm 30.4 kg/m2 43088.7 5 g 99 % 97.7 [degF] 94 /min 134/76 mm[Hg] Betina Israel [place] [facility] 5 11:07:07 Date Recorded Body height Body mass index (BMI) Body weight Respiratory rate Body temperature Oxygen saturation Heart rate Systolic And Diastolic Provider Name and Address Organization Details Last Updated DateTime 5 160.02 cm 29.9 kg/m2 51589.1 1 g 16 /min 98 [degF] 98 % 88 /min 164/92 mm[Hg] Yumiko Glass [place] [facility] 5 11:43:10 Social History Question Answer Notes LastModified by Organizat ion Details LastModified Time Tobacco Smoking Status Former Smoker Quit in 2012 Sarai Zarco MA [facility], [place] - [facility] 03/11/2014 14:36:20 Do You Have An Advance [...] Or The Highest Degree You Have Received? [id number] Information not available 08/15/2020 Are There Any [...] available 08/15/2020 What is your occupation? unemployed [email or web address] Information not available 02/11/2019 Do you or have you ever used e-cigarettes or vape? Never used electronic cigarettes Information not available 11/02/2018 What is your exercise level? None active Information not available 07/18/2022 Mental Status Question Answer Note LastModified by Organization D etails LastModified Time Do you feel stressed (tense, restless, nervous, or anxious, or unable to sleep at night)? [id number] Information not available 08/15/2020 Family History Relationship Description Onset Age of this Age Resolved Age Notes LastModified by Organization Details LastModified Time Mother Diabetes mellitus Not available 2015 15:00:39 Mother Malignant neoplasm of uterus Not available 2015 15:00:39 Father Diabetes mellitus Not available 2015 15:00:39 Father Hypertensive disorder Not available 2015 15:00:39 Father Malignant neoplasm of liver 72 77 [email or web address] Not available 01/17 11:29:44 Maternal Grandmother Malignant neoplasm of liver Not available 2015 15:00:39 Paternal Grandmother Malignant neoplasm of lung Not available 2015 15:00:39 Maternal Grandfather Malignant neoplasm of lung Not available 2015 15:00:39 Medical History Condition Response Coronary Artery Disease N Atrial Fibrillation N High Blood Pressure N Kidney or Bladder Problems N Thyroid Problems Y GI Problems N Depression N COPD N Blood Clots N Skin Problems N Anemia N Heart Attack (PR) N Anxiety Disorder N Diabetes Y Muscle, Joint, or Bone Problems Y Seizures/Epilepsy N Acid Reflux (GERD) Y Cancer N Stroke N Asthma N Allergies Y High Cholesterol Y Hepatitis N Liver Disease Y Headaches Y Heart Failure N Gynecological History [...] Recorded Time Tdap 6 completed Not Available [facility] 04/10/2019 02:43:39 Influenza, split virus, quadrivalent, preservative 6 completed Not Available [facility] 04/10/2019 02:32:31 Influenza, split virus, quadrivalent, preservative 7 completed Not Available [facility] 04/10/2019 02:34:27 Influenza, split virus, quadrivalent, preservative 8 completed Not Available [facility] 04/10/2019 02:39:54 Influenza, split virus, quadrivalent, preservative 9 completed Not Available [facility] 04/10/2019 02:38:15 Influenza, split virus, quadrivalent, preservative 5 completed Not Available [facility] 04/10/2019 02:32:09 Past Encounters Encounter ID Performer Location Encounter Start Date Encounter Closed Date Diagnosis/Indication Diagnosis SNOMED-CT Code Diagnosis ICD10 Code Diagnosis IMO Codes Diagnosis Note [id number] MD Patrick Lopez (CHILD CARE COORDINATOR) [address] [place] [address] 03/11/2014 14:00:58 03/11/2014 15:18:46 Dysuria 64994729 UA negative, dwp. Atrophic vulva 231518962 A \Normal exam x atrophy d/w pt. Treatment with estrogen cream d/w pt. Pt. refuses treatment with estrogens. [id number] MD Patrick Olvera (Adult Med) [address] [place] [address] 04/22/2014 13:51:56 04/22/2014 16:49:30 Liver function tests outside reference range 029641949 pt is seeing monitor LFT Diabetes mellitus 53520553 Last A1c-7.1 continue same Hyperlipidemia 90738661 co ntinue same Hypothyroidism 48464659 co ntinue same Pain of elbow region 36085024 [id number] [facility] [address] [place] [address] 06/21/2014 15:24:02 06/21/2014 17:24:39 Cough 98113640 C/O cough for 3 weeks.Afeb rile,satur ating 95% on room air and lungs clear. Likely secondary to Lisinopril . Advised patient to hold the Lisinopril and call the office in 1 week. Advised to follow up in the office if the cough is not improving. [id number] MD [facility] [address] [place] [address] 08/19/2014 14:21:02 08/19/2014 15:56:04 Diabetes mellitus 13002943 Continue same Add [place] d/c Lisinopril due to cough Hyperlipidemia 74510735 wi th fatty liver continue same Hypothyroidism 33876576 co ntinue same [id number] MD [facility] [address] [place] [address] 12/20/2014 13:52:11 12/20/2014 14:36:45 Diabetes mellitus 63940725 Continue same d/c Lisinopril due to cough Hyperlipidemia 90593227 wi th fatty liver continue same Hypothyroidism 44069566 co ntinue same Administra tion of influenza vaccine 10376055 [id number] MD [facility] [address] [place] [address] 04/18/2015 13:51:53 04/19/2015 15:54:18 Diabetes mellitus 68679106 E13.42 Continue Metformine and Glimepride d/c Lisinopril due to cough Hyperlipidemia 20448105 E78.2 with fatty liver( seeing GI) continue same Hypothyroidism 51676006 E03.8 continue same [id number] MD [facility] [address] [place] [address] 05/09/2015 14:45:16 05/10/2015 16:16:41 Acute bronchitis 30627092 J20.8 [id number] MD [facility] [address] [place] [address] 07/18/2015 13:46:25 07/18/2015 16:01:31 Diabetes mellitus 94782906 E13.42 Continue Metformine and Glimepride continue [place] Hyperlipidemia 51516614 E78.2 with fatty liver( seeing GI) continue same Hypothyroidism 36593349 E03.8 continue same Primary fi bromyalgia syndrome 57688227 M79.7 pt to take gabapentin bid which may help with hotflashes as well Overweight 759034974 E66 .3 refer to nutritioni -weight loss help with fatty liver as well [id number] MD [facility] [address] [place] [address] 11/16/2015 13:49:37 11/17/2015 14:06:04 Diabetes mellitus 56272357 E13.42 Continue Metformine and Glimepride continue [place] A1c added in lab Hypothyroidism 79266923 E03.8 continue same Liver func tion tests outside reference range 029214923 R94.5 pt is seeing hy monitor LFT check US /liver Hyperlipidemia 76007629 E78.2 with fatty liver( seeing GI) continue simvastati n/ fenofibrat e Add Welchol for elevated TG Primary fi bromyalgia syndrome 47847015 M79.7 Increase gabapentin tid which may help with hotflashes as well Administra tion of diphtheria, pertussis, and tetanus vaccine 861121396 Z23 [id number] MD [facility] [address] [place] [address] 12/14/2015 14:46:47 12/14/2015 15:58:47 Dizziness 849127005 R42 etiology is not clear ( denied any low blood sugars ) / may be related to menopausal symptoms pt to reduce gabapentin bid pt to use Debrox for R/ear will check ekg Tachycardia 1960161 R00. 0 pt denied palpitatio n Administra tion of influenza vaccine 08508070 Z23 [id number] MD [facility] [address] [place] [address] 01/16/2016 11:10:12 01/16/2016 12:28:56 Diabetes mellitus 05313545 E13.42 Continue Metformine Increase Glimepride 4 mg continue [place] Hypothyroidism 29100888 E03.8 continue Levothyrox in 175 mcg daily Liver func tion tests outside reference range 733429495 R94.5 pt is seeing hy monitor LFT with statin /fenofibra te Hyperlipidemia 91766194 E78.2 with fatty liver( seeing GI) continue simvastati n/ fenofibrat e pt did not get Welchol yet Primary fi bromyalgia syndrome 14334867 M79.7 continue gabapentin which may help with hotflashes as well [id number] MD [facility] [address] [place] [address] 01/30/2016 14:49:41 01/31/2016 09:06:48 Insect bite - wound 944525674 T14.8 of R/upper arm Knee pain 38756453 M25.5 61 knee strengthen ing exerciseTr amadol daily prn for short term use [id number] MD [facility] [address] [place] [address] 02/28/2016 08:48:48 02/28/2016 11:05:59 Knee pain 63242812 M25.561 knee strengthen ing exercisexr ay showed mild OAmobic daily prnrefer to ortho for possible knee injection [id number] MD [facility] [address] [place] [address] 04/17/2016 09:40:11 04/17/2016 15:49:54 Diabetes mellitus 83233315 E13.42 Continue Metformine / Glimepride 4 mg continue [place] Add Byetta ( no h/o pancreatit is ) and it helps with wt loss as well Hypothyroidism 76103868 E03.8 continue Levothyrox in 175 mcg daily Hyperlipidemia 48363408 E78.2 with fatty liver( seeing GI) continue simvastati n/ fenofibrat e Liver func tion tests outside reference range 143160522 R94.[address]Karadag becker monitor LFT with low dose statin /fenofibra te Acute bronchitis 6506489 2 J20.9 increase fluid [id number] MD [facility] [address] [place] [address] 07/16/2016 09:28:42 07/16/2016 13:47:30 Diabetes mellitus 16254596 E13.42 Continue Metformine / Glimepride 4 mg continue [place] Add Byetta ( no h/o pancreatit is ) and it helps with wt loss as well Hyperlipidemia 35864775 E78.2 with fatty liver( seeing GI) continue simvastati n/ fenofibrat e Hypothyroidism 12161094 E03.8 continue Levothyrox in 175 mcg daily Upper resp iratory infection 90767970 J06.9 possibly viral supportive care Liver func tion tests outside reference range 058207683 R94.[address]Karadag becker monitor LFT with low dose statin /fenofibra te [id number] Erika Camara APN, VIKRAM [facility] (Adult Med) [address] [place] [address] 08/15/2016 09:27:38 08/15/2016 13:17:30 Pain in throat 873448703 R07.0 Upper resp iratory infection 01152778 J06.9 [id number] Erna Cabrera PA-C [facility] (Adult Med) [address] [place] [address] 08/26/2016 11:12:56 08/26/2016 15:02:51 Acute bronchitis with bronchospasm 21241501 J20.9 persistent cough since June, will treat for bronchitis . dwp that she seems to be having bronchospa sms, encouraged her to use ventolin inhaler BID for the next week and PRN for coughing spasms, wheezing or shortness of breath. Continue using Mucienx and drink plenty of fluids. If she has more rhinorrhea she can add daily allergy medication . Pt given print out of Chershanonsi n. [id number] MD [facility] [address] [facility] [address] 09/30/2016 15:03:22 09/30/2016 16:09:41 Upper respiratory infection 44327816 J06.9 possibly viral / allergies supportive care pt to take Claritin daily Overweight 430855529 E66 .3 weight loss help with fatty liver as well [id number] MD Patrick Olvera (Adult Med) [address] [facility] [place] [address] 10/16/2016 14:23:51 10/17/2016 14:43:44 Diabetes mellitus 13655196 E13.42 Continue Metformine / Glimepride 4 mg continue [place] Add Byetta ( no h/o pancreatit is ) and it helps with wt loss as well Hyperlipidemia 17410337 E78.2 with fatty liver( seeing GI) continue simvastati n/ fenofibrat e Hypothyroidism 43285319 E03.9 continue levothyrox in 150 mcg daily Screening mammography 24 987225 Z12.31 Wax in ear canal 6824799 02 H61.21 s/p ear irrigation [id number] MD [facility] [address] [place] [address] 10/28/2016 16:07:53 10/29/2016 16:14:25 Wound of skin 977566932 T14.8 of little fingertopi wendy antibiotic ointmentlo wendy care [id number] MD [facility] [address] [facility] [place] [address] 01/17/2017 14:19:29 01/20/2017 18:01:48 Administration of influenza vaccine 58034014 Z23 Diabetes mellitus 431789 09 E11.9 stableCont inue same Hyperlipidemia 94417874 E78.2 with fatty liver( seeing GI) continue simvastati n/ fenofibrat e Hypothyroidism 42762227 E03.9 continue levothyrox in 150 mcg daily Liver func tion tests outside reference range 714295035 R94.[address]Karadag becker monitor LFT with low dose statin /fenofibra te Primary fi bromyalgia syndrome 61723724 M79.7 continue gabapentin [id number] MD [facility] [address] [place] [address] 04/25/2017 14:11:35 04/25/2017 15:59:34 Diabetes mellitus 99039067 E11.9 stableCont inue same Hyperlipidemia 99694745 E78.2 with fatty liver( seeing GI) continue simvastati n/ fenofibrat e Hypothyroidism 53681144 E03.9 continue levothyrox in 150 mcg daily Liver func tion tests outside reference range 569420598 R94.[address]Karadag becker monitor LFT with low dose statin /fenofibra te Acute sinusitis 61722506 J01.90 keep good hydration [id number] MD [facility] [address] [place] [address] 09/12/2017 14:20:40 09/15/2017 17:17:24 Diabetes mellitus 03860071 E11.9 stableCont inue same Hyperlipidemia 58395324 E78.2 with fatty liver( seeing GI) continue simvastati n/ fenofibrat e monitor lft pt to loose wt Hypothyroidism 20967904 E03.9 continue levothyrox in 150 mcg daily Primary fi bromyalgia syndrome 74007816 M79.7 continue gabapentin Overweight 659658220 E66 .3 weight loss help with fatty liver as well [id number] MD [facility] [address] [place] [address] 12/11/2017 14:09:40 12/15/2017 11:45:17 Administration of influenza vaccine 38072917 Z23 Diabetes mellitus 229931 09 E11.9 stableCont inue metformine / glimepride and By[place] Hyperlipidemia 88184754 E78.2 with fatty liver( seeing GI) continue simvastati n/ fenofibrat e monitor lft pt to loose wt Hypothyroidism 24340518 E03.9 continue levothyrox in 150 mcg daily Overweight 153572571 E66 .3 weight loss help with fatty liver as well Pain of mu ltiple joints 95016678 M25.50 continue gabapentin Primary fi bromyalgia syndrome 70675954 M79.7 continue gabapentin [id number] MD Patrick Olvera (Adult Med) [address] [place] [address] 03/25/2018 12:02:01 03/25/2018 14:35:47 Diabetes mellitus 52112420 E11.9 stableCont inue metformine / glimepride and Byetta Hypothyroidism 77452575 E03.9 continue levothyrox in 137 mcg daily Hyperlipidemia 62969857 E78.2 with fatty liver( seeing GI) continue simvastati n/ fenofibrat e monitor lft pt to loose wt Liver func tion tests outside reference range 528546010 R94.5 worsening pt stopped seeing Dr.Karadag becker due to insurance issue -will refer to new GI and check us liver pt to hold simvastati n for now monitor LFT with fenofibrat e Primary fi bromyalgia syndrome 65710715 M79.7 continue gabapentin [id number] MD aPtrick Olvera (Adult Med) [address] [place] [address] 07/16/2018 14:32:01 07/17/2018 10:11:17 Hyperlipidemia 87220431 E78.2 with fatty liver( seeing GI pt to hold simvastati n continue fenofibrat e monitor lft pt to loose wt Diabetes mellitus 730567 09 E11.9 fairly stableCont inue metformine / glimepride 2 mg daily and Byetta Hypothyroidism 91477603 E03.9 continue levothyrox in 137 mcg daily Primary fi bromyalgia syndrome 45569070 M79.7 continue gabapentin Liver func tion tests outside reference range 914138505 R94.5 worsening pt is seeing GI pt to hold simvastati n for now monitor LFT with fenofibrat e [id number] MD Patrick Hinson (Adult Med) [address] [place] [address] 09/25/2018 10:51:55 09/28/2018 09:58:57 Malaise 856696870 R53.81 possible dehydratio n with sun, dwp fluids and stay out of direct sunlight Nausea and vomiting 1693 2000 R11.2 not present at exam, will check labs, Right hemiplegia 0813788 07 G81.90 dwp stroke warning signs, instructed to go to ER/call 911 if present, provided handout to keep at home [id number] [facility] [address] [place] [address] 11/02/2018 14:27:37 11/04/2018 11:02:29 Diabetes mellitus 09169776 E11.9 fairly stable/ pt is noncomplia nt with diet -pt is counselled on dietContin ue metformin / glimepride 2 mg daily and Byetta Hyperlipidemia 91468543 E78.2 with fatty liver( seeing GI pt to hold simvastati n continue fenofibrat e monitor lft pt to loose wt Hypothyroidism 51641974 E03.9 continue levothyrox in 137 mcg daily Primary fi bromyalgia syndrome 26725778 M79.7 continue gabapentin Liver func tion tests outside reference range 555849806 R94.5 pt is seeing GI pt to hold simvastati n for now monitor LFT with fenofibrat e pt is going for MRCP in few days [id number] MD [facility] [address] [place] [address] 01/07/2019 11:31:28 01/08/2019 09:44:33 Administration of influenza vaccine 26990817 Z23 Benign par oxysmal positional vertigo 202326365 H81.13 improving on meclizinep t is getting PT Acute sinusitis 44924138 J01.90 keep good hydration [id number] MD [facility] [address] [place] [address] 01/28/2019 11:39:22 01/29/2019 09:24:23 Benign paroxysmal positional vertigo 728241266 H81.13 pt to take meclizine tidpt declined to do PT again -wants to see ENTcheck xray cervical spine as well Neck pain 84129428 M54.2 check xray [id number] MD [facility] [address] [place] [address] 02/11/2019 14:41:02 02/12/2019 09:48:44 Diabetes mellitus 35841676 E11.9 fairly stableCont inue metformin / glimepride 2 mg daily and Byetta Hyperlipidemia 28439683 E78.2 with fatty liver( seeing GI pt to hold simvastati n continue fenofibrat e monitor lft pt to loose wt Hypothyroidism 84774551 E03.9 continue levothyrox in 137 mcg daily Primary fi bromyalgia syndrome 81262323 M79.7 continue gabapentin Liver func tion tests outside reference range 555315113 R94.5 pt is seeing GI pt to hold simvastati n for now monitor LFT with fenofibrat e all work up for LFT elevation- neg except fatty liver . Screening mammography 24 980903 Z12.31 [id number] MD [facility] [address] [place] [address] 03/02/2019 08:52:45 03/03/2019 09:25:25 History of syncope 8919006382 80795 Z86.79 with multiple risk factors .r/o cardiac causes . pt need stress test or cardiac cath -will refer to cardio for evaluation . CT head -normal pt to see neuro for possible seizures . Advised pt not to drive . pt to take asa 81mg daily Hyperlipidemia 76881667 E78.2 with fatty liver( seeing GI pt to go back on simvastati n continue fenofibrat e monitor lft pt to loose wt Liver func tion tests outside reference range 109144319 R94.5 pt is seeing GI pt to restart simvastati n for now monitor LFT with fenofibrat e /statin all work up for LFT elevation- neg except fatty liver . pt sees GI. Diabetes mellitus 565388 09 E11.9 not well controlled .Continue metformin / glimepride 2 mg daily and Byetta . Add steglatro 5 mg daily . [id number] MD Patrick Olvera (Adult Med) [address] [facility] [place] [address] 05/24/2019 14:20:09 05/25/2019 08:52:08 History of syncope 9741823175 25078 Z86.79 with multiple risk factors .r/o cardiac causes . CT head -normal pt has apt to see neuro for possible seizures 07/16/2019. pt also seeing ENT and cardio Advised pt not to drive . pt to take asa 81mg daily Hyperlipidemia 99877420 E78.2 with fatty liver( seeing GI pt to go back on simvastati n continue fenofibrat e monitor lft pt to loose wt Liver func tion tests outside reference range 673859023 R94.5 pt is seeing GI pt is on low dose simvastati n for now monitor LFT with fenofibrat e /statin all work up for LFT elevation- neg except fatty liver . pt sees GI. Diabetes mellitus 769743 09 E11.9 not well controlled .Continue metformin / glimepirid e 4 mg daily and Byetta . sammieglatro was denied by her insurance . pt declined insulin at this time. Hypothyroidism 03335098 E03.9 continue levothyrox ine 137 mcg daily Primary fi bromyalgia syndrome 67480421 M79.7 continue gabapentin [id number] Yoan Humphries MD [facility] (Adult Med) [address] [place] [address] 08/31/2019 08:27:50 09/01/2019 12:19:16 Diabetes mellitus 58730113 E11.9 improvingC ontinue metformin / glimepirid e 4 mg daily / jardiance and Byetta . pt declined insulin at this time. Hypothyroidism 97523246 E03.9 continue levothyrox ine 137 mcg daily Hyperlipidemia 79809697 E78.2 with fatty liver( seeing GI pt is back on simvastati n at low dose. continue fenofibrat e monitor lft pt to loose wt Primary fi bromyalgia syndrome 51132448 M79.7 continue gabapentin History of syncope 19058 93584 56114 Z86.79 with multiple risk factors .r/o cardiac causes . CT head -normal pt has apt to see neuro for possible seizures on 09/21/2019. pt also seeing ENT and cardio Advised pt not to drive until cleared by neuro pt to take asa 81mg daily Liver func tion tests outside reference range 569122979 R94.5 pt is seeing GI pt is on low dose simvastati n for now monitor LFT with fenofibrat e /statin all work up for LFT elevation- neg except fatty liver . pt sees GI. [id number] MD [facility] [address] [place] [address] 12/07/2019 08:06:35 12/10/2019 10:21:20 Diabetes mellitus 17899019 E11.9 improvingC ontinue metformin / glimepirid e 4 mg daily / jardiance and Byetta . pt declined insulin at this time. Hyperlipidemia 08998547 E78.2 with fatty liver( seeing GI pt is back on simvastati n at low dose. continue fenofibrat e monitor lft pt to loose wt Hypothyroidism 53327359 E03.9 continue levothyrox ine 137 mcg daily Primary fi bromyalgia syndrome 95315828 M79.7 continue gabapentin Liver func tion tests outside reference range 670318646 R94.5 pt is seeing GI pt is on low dose simvastati n for now monitor LFT with fenofibrat e /statin all work up for LFT elevation- neg except fatty liver . pt sees GI. [id number] MD Qi Olverahalto (Adult Med) [address] [place] [address] 04/11/2020 08:45:07 04/12/2020 07:58:54 Diabetes mellitus 08335002 E11.9 improvingC ontinue metformin / glimepirid e 4 mg daily / jardiance and Byetta . pt declined insulin at this time. Hyperlipidemia 29642887 E78.2 with fatty liver( seeing GI pt is back on simvastati n at low dose. continue fenofibrat e monitor lft pt to loose wt Hypothyroidism 68172432 E03.9 continue levothyrox ine 137 mcg daily Primary fi bromyalgia syndrome 16143121 M79.7 pt to increase gabapentin .pt to do yoga stretches Liver func tion tests outside reference range 175927869 R94.5 pt is seeing GI pt is on low dose simvastati n for now monitor LFT with fenofibrat e /statin all work up for LFT elevation- neg except fatty liver . pt sees GI. [id number] MD [facility] [address] [place] [address] 08/15/2020 13:44:40 08/16/2020 13:16:28 Diabetes mellitus 82359472 E11.9 improving Continue metformin / glimepirid e 4 mg daily / jardiance and Byetta . pt declined insulin at this time. Hyperlipidemia 45245119 E78.2 with fatty liver( seeing GI) pt is back on simvastati n at low dose. continue fenofibrat e monitor lft pt to loose wt Primary fi bromyalgia syndrome 04359675 M79.7 pt to continue gabapentin . pt to do yoga stretches Hypothyroidism 23879379 E03.9 continue levothyrox ine 137 mcg daily Liver func tion tests outside reference range 087868343 R94.5 pt is seeing GI pt is on low dose simvastati n for now monitor LFT with fenofibrat e /statin all work up for LFT elevation- neg except fatty liver . pt sees GI. -pt to make f/u [id number] MD [facility] [address] [place] [address] 11/20/2020 14:14:40 11/20/2020 16:28:46 Diabetes mellitus 90476777 E11.9 fairly stableCont inue metformin / glimepirid e 4 mg daily / jardiance and Byetta . pt declined insulin at this time. Hyperlipidemia 44475034 E78.2 with fatty liver( seeing GI) pt is back on simvastati n at low dose. continue fenofibrat e monitor lft pt to loose wt Hypothyroidism 50257040 E03.9 continue levothyrox ine 137 mcg daily Primary fi bromyalgia syndrome 88968654 M79.7 pt to continue gabapentin . pt to do yoga stretches Liver func tion tests outside reference range 761378481 R94.5 pt is seeing GI pt is on low dose simvastati n for now monitor LFT with fenofibrat e /statin all work up for LFT elevation- neg except fatty liver . pt sees GI. -pt to make f/u Obesity 098201556 E66.9 Pain in toe 429373907 M7 9.675 of little toe - ice /rest - pt declined xray [id number] MD Estefania Olverato (Adult Med) [address] [place] [address] 02/21/2021 14:18:54 02/22/2021 11:11:39 Hyperlipidemia 27355011 E78.2 with fatty liver( seeing GI) pt is back on simvastati n at low dose. continue fenofibrat e monitor lft pt to loose wt Diabetes mellitus 893307 09 E11.9 fairly stableCont inue metformin / glimepirid e 4 mg daily / jardiance change Byetta to trulicity pt declined insulin at this time. Hypothyroidism 81877790 E03.9 continue levothyrox ine 137 mcg daily Primary fi bromyalgia syndrome 64844548 M79.7 pt to continue gabapentin . pt to do yoga stretches Cellulitis 220767412 L03 .90 on R/buttock - pt to return to clinic if problem persists or worsen [id number] MD Qi Olverahalto (Adult Med) [address] [place] [address] 05/29/2021 14:16:23 05/30/2021 07:08:58 Diabetes mellitus 05970628 E11.9 -improving Continue metformin / glimepirid e 4 mg daily / jardiance changed to trulicity pt declined insulin at this time. Hyperlipidemia 43443044 E78.2 with fatty liver( seeing GI) pt is back on simvastati n at low dose. continue fenofibrat e monitor lft pt to loose wt Hypothyroidism 55485961 E03.9 continue levothyrox ine 137 mcg daily Primary fi bromyalgia syndrome 85631278 M79.7 pt to continue gabapentin . pt to do yoga stretches Liver func tion tests outside reference range 326551573 R94.5 pt is seeing GI pt is on low dose simvastati n for now monitor LFT with fenofibrat e /statin all work up for LFT elevation- neg except fatty liver . pt sees GI. -pt to make f/u Obesity 267182436 E66.9 Increased frequency of urination 079776550 R35.0 urine dipstick-n egpt to see Binder Fixer for possible atrophic vaginitis [id number] MD Patrick Olvera (Adult Med) [address] [place] [address] 08/10/2021 10:52:32 08/13/2021 11:32:00 Pain of shoulder region 17617559 M25.512 -exercise /heat therapy [id number] MD [facility] [address] [place] [address] 09/05/2021 14:29:37 09/06/2021 08:48:23 Diabetes mellitus 92168988 E11.9 -improving Continue metformin / glimepirid e 4 mg daily / jardiance changed to trulicity pt declined insulin at this time. Hyperlipidemia 70038687 E78.2 with fatty liver( seeing GI) pt is back on simvastati n at low dose. continue fenofibrat e monitor lft pt to loose wt Hypothyroidism 16139980 E03.9 continue levothyrox ine 137 mcg daily Primary fi bromyalgia syndrome 12326654 M79.7 pt to continue gabapentin . pt to do yoga stretches Obesity 475243205 E66.9 [id number] MD [facility] [address] [place] [address] 01/08/2022 14:22:47 01/09/2022 08:12:01 Diabetes mellitus 27165046 E11.9 -improving Continue metformin / glimepirid e 4 mg daily / jardiance changed to trulicity pt declined insulin at this time. Hyperlipidemia 09286918 E78.2 with fatty liver( seeing GI) pt is back on simvastati n at low dose. continue fenofibrat e monitor lft pt to loose wt Hypothyroidism 81264478 E03.9 continue levothyrox ine 137 mcg daily Primary fi bromyalgia syndrome 57803652 M79.7 pt to continue gabapentin . pt to do yoga stretches Screening mammography 24 935543 Z12.31 [id number] MD [facility] ([facility] COORDINATOR) [address] [place] [address] 01/17/2022 11:01:23 01/20/2022 21:31:08 Screening for malignant neoplasm of cervix 915478929 Z12.4 - Hysterecto my in 2000 followed by normal Pap in 2008- Does not require additional Pap smears; only has vaginal cuff after hysterecto my for heavy bleeding History of polyp of colon 837862154 Z86.010 - Colonoscop y in 2020 showed hyperplast ic polyps, tubular adenoma, and sessile serrated polyps- Following with GI with recommende d 5 year follow up Dyspareunia 49347183 N94 .11 N95.2 - Due to atrophic vaginitis; will trial vaginal estrogen Screening for malignant neoplasm of breast 447995853 Z12.39 - Ordered by PCP on 01/08; patient reports scheduled mammogram for next month Screening for malignant neoplasm of respiratory tract 296182038 Z12.2 - Qualifies for lung cancer screening with 35 pack-year smoking history and quitting within the past 15 years; ordered today Immunization due 4098906 08 Z28.39 - Due for COVID, flu, pneumococc al vaccines; counseled patient on importance of vaccinatio n, especially in setting of diabetes, but she declined [id number] MD Patrick Olvera (Adult Med) [address] [place] [address] 04/18/2022 11:34:46 04/22/2022 10:12:40 Diabetes mellitus 84096761 E11.9 -improving Continue metformin / glimepirid e 4 mg daily / jardiance changed to trulicity pt declined insulin at this time. Hyperlipidemia 36676172 E78.2 with fatty liver( seeing GI) pt is back on simvastati n at low dose. continue fenofibrat e monitor lft pt to loose wt Hypothyroidism 12063963 E03.9 continue levothyrox ine 137 mcg daily Primary fi bromyalgia syndrome 75912637 M79.7 pt to continue gabapentin . 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 - Will screen for infection as cause of irritation /pain with NuSwab; will treat as indicated by results- Mild erythema of labia minora suggests component of contact dermatitis or other inflammato ry condition- If negative NuSwab, consider vulvar biopsy vs empiric treatment with topical steroids [id number] MD Patrick GARZA (CHILD CARE COORDINATOR) [address] [place] [address] 06/20/2022 15:23:04 06/23/2022 12:57:05 Vaginal irritation 722694133 N89.8 - Will treat empiricall y for yeast infection- f/u NuSwab; will treat as indicated by results Body mass index 30+ - obesity 151825737 Z68.30 - Discussed dietary changes to improve A1c with hope that decreased glucosuria will make yeast infections less frequent [id number] MD Qi Olverahalto (Adult Med) [address] [place] [address] 07/18/2022 11:22:44 07/22/2022 11:11:21 Diabetes mellitus 01245758 E11.9 -improving Continue metformin / glimepirid e 4 mg daily / jardiance changed to trulicity pt declined insulin at this time. Hyperlipidemia 05934649 E78.2 with fatty liver( seeing GI) pt is back on simvastati n at low dose. continue fenofibrat e monitor lft pt to loose wt Hypothyroidism 43751373 E03.9 continue levothyrox ine 137 mcg daily Primary fi bromyalgia syndrome 89098239 M79.7 pt to continue gabapentin . pt to do yoga stretches Overweight 196195564 E66 .3 weight loss help with fatty liver as well Fatigue 49913644 R53.83 -check labs /pt to skip morning dose of gabapentin check sleeps study Daytime hypersomnia 3177 675963 6777 G47.19 - pt denied snoring - pt to go for sleep study [id number] MD Patrick GARZA (CHILD CARE COORDINATOR) [address] [place] [address] 07/26/2022 12:04:41 08/07/2022 15:55:02 Candidal vulvovaginitis 23239381 B37.31 - Sonal glabrata infection: 05/17/22 and 06/20/22- Suspect recurrent infection; f/u NuSwab and treat as indicated by results- Recommend discussing with PCP about possibilit y of discontinu ing SGLT2-i, as this may be increasing frequency of vaginal yeast infections - Will treat empiricall y with boric acid suppositor ies for next 2 weeks [id number] MD Qi Olverahalto (Adult Med) [address] [place] [address] 09/19/2022 14:14:01 09/20/2022 12:46:11 Primary fibromyalgia syndrome 95298601 M79.7 pt to increase gabapentin 600mg tid pt to do yoga stretchesp t to hold statin for 2 wks to see if any improvemen t in pain Arthritis of hand 908788 005 M13.849 labs to r/o inflammato ry arthritis -neg-check xray-discu ssed about exercisept is on gabapentin [id number] MD [facility] ([facility] COORDINATOR) [address] [place] [address] 10/01/2022 13:47:58 10/03/2022 10:54:44 Candidal vulvovaginitis 92602786 B37.31 B37.32 - Sonal glabrata infection: 05/17/22, 06/20/22, and 07/26/22- Sonal albicans infection: 05/17/22, 07/26/22- f/u NuSwab; if positive for Sonal glabrata again, will try flucytosin e as treatment instead of boric acid and consider referral to ID for recurrent C. glabrata infections [id number] MD [facility] [address] [place] [address] 11/01/2022 11:42:23 2022 14:35:08 Localized eruption of skin 060667506 R21 on lower legs- pt to avoid shaving Hypothyroidism 29564809 E03.9 continue levothyrox ine 137 mcg daily Hyperlipidemia 91303649 E78.2 with fatty liver( seeing GI) pt is back on simvastati n at low dose. continue fenofibrat e monitor lft pt to loose wt Diabetes mellitus 247600 09 E11.9 -improving Continue metformin / glimepirid e 4 mg daily / jardiance changed to trulicity pt declined insulin at this time. Liver func tion tests outside reference range 949240206 R94.5 pt is seeing GI pt is on low dose simvastati n for now monitor LFT with fenofibrat e /statin all work up for LFT elevation- neg except fatty liver . pt sees GI. -pt to make f/u [id number] MD Patrick Olvera (Adult Med) [address] [place] [address] 11/14/2022 11:01:38 11/18/2022 10:24:03 Diabetes mellitus 15378897 E11.9 -improving Continue metformin / glimepirid e 4 mg daily / jardiance change trulicity to ozempic which will help with wt Hyperlipidemia 12950485 E78.2 with fatty liver( seeing GI) -change simvastati n to rosuvastat in at low dose. continue fenofibrat e monitor lft pt to loose wt Hypothyroidism 11638318 E03.9 continue levothyrox ine 137 mcg daily Primary fi bromyalgia syndrome 42597225 M79.7 pt is on gabapentin 600mg tid pt to do yoga stretches [id number] MD iDmas MENESESn [address] IM [address] [facility] [address] [place] [address] 01/30/2023 10:58:48 02/12/2023 09:04:17 Candidal vulvovaginitis 50163358 B37.31 B37.32 2 weeks symptoms. Previously positive for (albicans and glabrata) treated with boric acid suppositor y and fluconazol e.- Will repeat boric acid vaginal suppositor y daily- Fluconazol e (Diflucan) x1 dose followed by 2nd dose 3d later- Nuswab today prior to treatment. [id number] MD Patrick Olvera (Adult Med) [address] [place] [address] 02/20/2023 11:50:31 02/21/2023 15:52:50 Diabetes mellitus 38981195 E11.9 -improving / pt had few low bs in 60's -pt to lower glimepride 2mg daily instead of 4 mgContinue metformin- off of jardiance due to yeast vaginitisc hange trulicity to rybelsus which will help with wt Primary fi bromyalgia syndrome 12852979 M79.7 pt is on gabapentin 600mg tid pt to do yoga stretches Hyperlipidemia 65410337 E78.2 with fatty liver( seeing GI) -change simvastati n to rosuvastat in at low dose. continue fenofibrat e monitor lft pt to loose wt Hypothyroidism 69051506 E03.9 continue levothyrox ine 137 mcg daily Overweight 885867581 E66 .3 weight loss help with fatty liver as well Chest pain 56791047 R07. 9 of left chest pain- check ekg / EST [id number] MD [facility] [address] [place] [address] 04/01/2023 11:50:50 04/02/2023 11:53:53 Diabetes mellitus 14437141 E11.9 -fair controlCon tinue metformin /glimeprid e-off of jardiance due to yeast vaginitisc hanged trulicity to rybelsus which will help with wt - increase to 14mg daily Primary fi bromyalgia syndrome 33657183 M79.7 pt is on gabapentin 600mg tid pt to do yoga stretches Hyperlipidemia 66257417 E78.2 with fatty liver( seeing GI) -changed simvastati n to rosuvastat in at low dose. continue fenofibrat e monitor lft pt to loose wt Hypothyroidism 64432304 E03.9 continue levothyrox ine 137 mcg daily Overweight 983166374 E66 .3 weight loss help with fatty liver as well [id number] MD Qi Olverahalto (Adult Med) [address] [place] [address] 07/10/2023 11:00:45 07/11/2023 15:19:13 Diabetes mellitus 32741267 E11.9 -fair controlCon tinue metformin /glimeprid e-off of jardiance due to yeast vaginitisc hanged trulicity to rybelsus which will help with wt - increased to 14mg daily Hypothyroidism 62359601 E03.9 continue levothyrox ine 137 mcg daily Hyperlipidemia 78003801 E78.2 with fatty liver( seeing GI) -changed simvastati n to rosuvastat in at low dose. continue fenofibrat e monitor lft pt to loose wt Primary fi bromyalgia syndrome 09549203 M79.7 pt is on gabapentin 600mg tid pt to do yoga stretches Obesity 552359782 E66.9 Skin lesion 61335582 L98 .9 on R/upper arm [id number] MD Qi Olverahalto (Adult Med) [address] [place] [address] 11/20/2023 11:08:00 11/25/2023 14:54:39 Diabetes mellitus 08774357 E11.9 -fair controlCon tinue metformin /glimeprid e-off of jardiance due to yeast vaginitisc hanged trulicity to rybelsus which will help with wt - increased to 14mg daily Hypothyroidism 24443605 E03.9 continue levothyrox ine 137 mcg daily Hyperlipidemia 58999344 E78.2 with fatty liver( seeing GI) -changed simvastati n to rosuvastat in at low dose. continue fenofibrat e monitor lft pt to loose wt Primary fi bromyalgia syndrome 28867726 M79.7 pt is on gabapentin 600mg tid pt to do yoga stretches [id number] MD Qi Olverahalto (Adult Med) [address] [place] [address] 03/04/2024 12:14:52 03/08/2024 12:17:22 Diabetes mellitus 76067782 E11.9 -fair controlCon tinue metformin /glimeprid e-off of jardiance due to yeast vaginitisc hanged trulicity to rybelsus which will help with wt - increased to 14mg daily Hypothyroidism 07727644 E03.9 continue levothyrox ine 137 mcg daily Pain of mu ltiple joints [id number] M25.50 continue gabapentin -will see whether ly[facility]/o inflamator y arthritis [id number] MD Patrick Olvera (Adult Med) [address] [place] [address] 04/22/2024 12:15:52 04/28/2024 10:23:42 Diabetes mellitus 05514129 E11.9 -fair controlCon tinue metformin /glimeprid e-off of jardiance due to yeast vaginitisc hanged trulicity to rybelsus which will help with wt - increased to 14mg daily Hypothyroidism 22440918 E03.9 continue levothyrox ine 137 mcg daily Hyperlipidemia 60140678 E78.2 with fatty liver( seeing GI) -changed simvastati n to rosuvastat in at low dose. continue fenofibrat e monitor lft pt to loose wt Primary fi bromyalgia syndrome 73078555 M79.7 pt is on gabapentin 600mg tid - pt did not get Lyrica from pharmacy - will re-send pt to do yoga stretches [id number] Aracely Clayton-Amy olivia, MD Nguyen (Adult Med) [address] [place] [address] 05/28/2024 12:14:19 06/01/2024 12:00:34 Diabetes mellitus 91426339 E11.9 -last a1c 7.29 Feb 2024, will order new labContinu e metformin /glimeprid e-off of jardiance due to yeast vaginitisc hanged trulicity to rybelsus which will help with wt - increased to 14mg daily- pt open to changing back if she can get off all pills- pt taking losartan, pt wants to stop, not sure why she was even on it, will hold and monitor bp Hypothyroidism 44845096 E03.9 continue levothyrox ine 137 mcg daily Hyperlipidemia 95858976 E78.2 with fatty liver( seeing GI) -cont rosuvastat in continue fenofibrat e monitor lft pt to loose wt Primary fi bromyalgia syndrome 94844248 M79.7 pt is on gabapentin 600mg tid but only taking qpm and qhs pt also taking Lyrica? she is not sure why pt to do yoga stretchesp t open to trying Cymbalta- will get labs first Obesity 253835823 E66.9 advised low fat, low cholestero l diet, regular exercise and weight reduction. Long-term drug therapy 501795897 Z79.891 [facility] policy on controlled substances , informed that while pt was given pain medication in past, it not may not be appropriat e for [facility] pain mgmt, will also order drug screen for compliance Pain in right thumb [id number] 425229 M79.644 right thumb, mild edemawent to UC, they gave steroid powill give topical diclofenac sample OTCadvised brace, can refer if not improved Patient ne w to provider [id number] 54010 Z76.89 reviewed chart, dwp goals for her health,pt wants to reduce the number of meds she takes, focus on prevention /diet [id number] MD Patrick Hinson (Adult Med) [address] [place] [address] 09/16/2024 14:24:33 09/21/2024 11:50:52 Diabetes mellitus 90610110 E11.9 -last a1c 7.29 Feb 2024, 5-8./-7.4Cont inue metformin /glimeprid e-off of jardiance due to yeast vaginitisc hanged trulicity to rybelsus which will help with wt - increased to 14mg daily- pt open to changing back if she can get off all pills- pt taking losartan, pt wants to stop, not sure why she was even on it, will hold and monitor bp Hypothyroidism 41119785 E03.9 continue levothyrox ine 137 mcg daily Hyperlipidemia 03943431 E78.2 with fatty liver( seeing GI) -cont rosuvastat in monitor lft pt to loose wt Primary fi bromyalgia syndrome 77528374 M79.7 pt is on gabapentin 600mg tid but only taking qpm-dinner and qhs pt also taking Lyrica? she is not sure why pt to do yoga stretchesp t open to trying Cymbalta Obesity 022993036 E66.9 advised low fat, low cholestero l diet, regular exercise and weight reduction. Obese class I [id number] 86854 E66.811 [id number] advised low fat, low cholestero l diet, regular exercise and weight reduction. [id number] MD Patrick Hinson (Adult Med) [address] [place] [address] 10/12/2024 10:53:38 10/20/2024 13:38:38 History of calculus of kidney [id number] Z87.583 [id number] cont with urology as planned, still has stent in place,- t changes advised Hospital i npatient stay within past 30 days [id number] 106 Z78.9 [id number] records reviewed Obese class I [id number] 16897 E66.811 E66.3 [id number] advised low fat, low cholestero l diet, regular exercise and weight reduction. [id number] MD Patrick Hinson (Adult Med) [address] [place] [address] 01/11/2025 11:21:17 01/12/2025 10:00:19 Diabetes mellitus 38655107 E11.9 -last a1c 7.29 Feb 2024, 5-8.26/-7.410/2 04/17-6.6Co ntinue metformin /glimeprid e-off of jardiance due to yeast vaginitisc hanged trulicity- losartan- resume Hypothyroidism 91478536 E03.9 continue levothyrox ine 137 mcg dailyPatie nt follows with Endocrine as well Hyperlipidemia 70945255 E78.2 with fatty liver( seeing GI) -cont rosuvastat in monitor lft pt to loose wt Primary fi bromyalgia syndrome 03301211 M79.7 pt is on gabapentin 600mg qhs, will add 100 mg for day/noon dosing pt to do yoga stretchesp t open to trying Cymbalta Overweight 517826200 E66 .3 advised low fat, low cholestero l diet, regular exercise and weight reduction. Essential hypertension 12507645 I10 45429 Patient was previously on losartan, unsure if this was for just diabetic management or true high blood pressure, blood pressure is elevated today so we will resume losartan 25 mg per day Health Concerns Section Related Observation LastModified by Organization [facility] LastModified Time None Recorded Concern Status LastModified by Organization Details LastModified Time None Recorded Advance Directives Directive N: Payers Insurance Date Sequence Insurance Name Policy Number Policy Sahni Covered Member ID Sahni Member ID Guarantor Name 08/30/2019 2 *SELF PAY* Nalini Bales 11/03/2024 1 [place] [facility] Brigette Coughlin [id number] Brigette Coughlin 11/03/2024 1 [facility] (MEDICAID HM) [id number] Brigette Coughlin [id number] Brigette Coughlin 11/03/2024 1 [facility] (MEDICAID HMO) [id number] Brigette Coughlin [id number] Brigette Coughlin 11/03/2024 1 [place] [facility] Brigette Coughlin [id number] Brigette Coughlin 01/08/2025 1 [facility] (MEDICAID HMO) [id number] Brigette Coughlin [id number] Brigette Coughlin 11/03/2024 1 [facility] (MEDICAID HMO) [id number] 0003 Brigette Coughlin [id number] Brigette Coughlin 11/03/2024 1 [place] [facility] Brigette Coughlin [id number] Brigette Coughlin Notes Date Note Type Note Provider Name and Address Organization Details Recorded Time text/html HyperlipidemiaReported by PatientHPIFor type of hyperlipidemia, [...] gain,no dizziness, andno calluses on feet. For review finger sticks, patient reportsfastin. For labs, patient reportslast a1c result: 7.1. For context, patient reportsseeing eye doctor regularly,checking feet regularly,taking aspirin daily,not missing doses of medications, andno side effects from medications. ThyroidReported by PatientHPIFor context, patient reportshistory of [...] pt is seeing GI for elevated LFT. Yoan Humphries MD Attn: Accounting,[address] [facility], [place], [address], [facility] 04/26/2024 10:20:29 5 text/html HyperlipidemiaReported by PatientHPIFor type of [...] doses of medications, andno side effects from medications. ThyroidReported by PatientHPIFor context, patient reportshistory of [...] stable). pt is seeing GI for elevated LFT.pt had tendonitis in right thumb- given steriods from UC in [place] but still having thumb pain. wants to reduce number of meds she is currently taking Erika Camara APN, FNP-C Attn: Accounting,[address] [facility], [place], [address], [facility] 05/28/2024 13:45:40 5 text/html HyperlipidemiaReported by PatientHPIFor type of [...] doses of medications, andno side effects from medications. ThyroidReported by PatientHPIFor context, patient reportshistory of [...] GI for elevated LFT. Erika Camara APN, FNP-C Attn: Accounting,[address] [facility], [place], [address], [facility] 09/19/2024 19:14:34 5 text/html was in [facility] on 09/30 due to kidney stones could not pass them then had surgery on 10/01/24, is following with urology Erika Camara APN, FNP-C Attn: Accounting,[address], [place], [address], [facility] 10/18/2024 23:59:33 5 text/html HyperlipidemiaReported by PatientHPIFor type of [...] GI for elevated LFT. Erika Camara APN, FNP-C Attn: Accounting,[address], [place], [address], [facility] 01/11/2025 14:25:17 OBGyn Episode No OBEpisode recorded.
[2025-03-18 13:09] VITALS: BP 137/81; PULSE 94; RESP 20; TEMP 36.6; O2SAT 97
--- NOTE | 2025-03-18 13:25 | ED.URI ---
HPI - URI/Sore Throat General Chief Complaint: Upper Respiratory Infection Stated Complaint: Sore Throat/Mouth Sore Time Seen by Provider: 03/18/25 13:20 Source: patient Mode of arrival: ambulatory Limitations: no limitations History of Present Illness HPI Narrative: Brigette is a 59-year-old female patient presenting to the clinic today with complaints of sore throat/mouth sores x1 day. Nose is symptoms started yesterday. Has been exposed to strep. Denies any fevers, chills, body aches. No recent antibiotic use. Related Data Home Medications ?Medication ?Instructions ?Recorded ?Confirmed ?Last Taken ?Type blood sugar diagnostic (True 12/21/20 07/25/22 Unknown History Metrix Glucose Test Strip) gabapentin 400 mg capsule 400 mg PO TID 12/21/20 07/25/22 Unknown History glimepiride 2 mg tablet 4 mg PO QAM 12/21/20 07/25/22 Unknown History levothyroxine 137 mcg tablet 137 mcg PO DAILY 12/21/20 07/25/22 Unknown History loratadine 10 mg tablet (Claritin) 10 mg PO PRN Allergies 12/21/20 07/25/22 Unknown History losartan 25 mg tablet 25 mg PO DAILY 12/21/20 07/25/22 Unknown History metformin 500 mg tablet 1,000 mg PO BID 12/21/20 07/25/22 Unknown History pen needle, diabetic 32 gauge x 12/21/20 07/25/22 Unknown History (Sure Comfort Pen Needle) cholecalciferol (vitamin D3) 125 125 mcg PO DAILY 01/31/21 07/25/22 Unknown History mcg (5,000 unit) tablet (Vitamin D3) cimetidine 400 mg tablet 400 mg PO BID 01/31/21 07/25/22 Unknown History vitamin B complex (B 1 tablet PO DAILY 01/31/21 07/25/22 Unknown History Complex-Vitamin B12 tablet) vitamin E (dl, acetate) 180 mg 180 mg PO DAILY 01/31/21 07/25/22 Unknown History (400 unit) capsule dulaglutide 1.5 mg/0.5 mL 1.5 mg subcut WEEKLY 07/26/21 07/25/22 Unknown History subcutaneous pen injector (Trulicity) glimepiride 4 mg tablet mg 03/18/25 Unknown History rosuvastatin 20 mg tablet mg 03/18/25 Unknown History Allergies Allergy/AdvReac Type Severity Reaction Status Date / Time morphine Allergy Mild BURNING Verified 03/18/25 13:16 PAIN ALL OVER Penicillins Allergy Unknown Hives Verified 03/18/25 13:16 lisinopril AdvReac Cough Verified 03/18/25 13:16 Review of Systems Review of Systems: Pertinent positives per HPI. Patient denies any fever, chills, rash, headache, visual changes, dizziness, cough, shortness of breath, chest pain, palpitations, nausea, vomiting, diarrhea, constipation, abdominal pain, or any urinary issues. [facility] Past Medical History Medical History (Updated 03/18/25 @ 13:41 by Eagle Curran APRN) Hemorrhoid Constipation Fatty liver Obesity Adenomatous colon polyp Diabetes mellitus Elevated liver enzymes Surgical History Surgical History H/O colonoscopy Social History Social History Years smoked: 30 Smoking status: Never smoker Tobacco type: cigarettes Alcohol intake: never Substance use: never Living arrangements: alone Comments At the time of my signature, I reviewed and agree with the nursing past medical, surgical, social, and family history. There is no relevant family history pertinent to the patient complaint. Exam Narrative: General: Well-developed, well nourished, in no apparent distress Head: Normocephalic, atraumatic Eyes: Pupils equally round and reactive to light bilaterally, EOM intact, sclera and conjunctive clear, no discharge, lids normal Ears: TMs intact and clear, ear canals clear, no drainage, grossly hearing normal. Nose: Nares patent, no discharge, no inflammation, no sinus tenderness. Mouth: Oral pharynx with painful oral lesions to the oral pharynx area as well as underneath her tongue, good dentition, MMM. Neck: Supple, trachea midline, no enlargement of anterior or posterior cervical nodes, no thyroid masses or goiter palpable. Cardio: Regular rate and rhythm, s1 and s2 normal, no murmur appreciated. Resp: Clear to auscultation bilaterally, no rhonchi, rales, wheezing or rubs Course Course Level of Care: Express Care Visit Vital Signs Vital signs: Vital Signs Temperature 36.6 C 03/18/25 13:09 Pulse Rate 94 03/18/25 13:09 Respiratory Rate 20 03/18/25 13:09 Blood Pressure 137/81 03/18/25 13:09 Pulse Oximetry 97 03/18/25 13:09 Oxygen Delivery Room Air 03/18/25 13:09 Temperature 36.6 C 03/18/25 13:09 Pulse Rate 94 03/18/25 13:09 Respiratory Rate 20 03/18/25 13:09 Blood Pressure 137/81 03/18/25 13:09 Pulse Oximetry 97 03/18/25 13:09 Oxygen Delivery Room Air 03/18/25 13:09 MDM MDM Narrative Medical decision making narrative: At the time of visit patient is resting comfortably on the exam table. Patient appears to be nontoxic. Complaints of sore throat/mouth sores x1 day. Nose is symptoms started yesterday. Has been exposed to strep. Denies any fevers, chills, body aches. No recent antibiotic use. On exam patient has painful oral lesions to the oral pharynx area as well as underneath her tongue. Strep test was ordered per patient request. Labs: Strep test was negative in the clinic today. We will send strep for culture. Plan: I suspect patient has gingival stomatitis. Prescription for Magic mouthwash was sent to the pharmacy. Supportive measures were discussed with the patient and they voiced understanding discharge instructions and agrees to treatment plan. Return precautions reviewed Differential Diagnosis Differential Diagnosis: Differential diagnostic considerations for dental issues include gingival abscess, dental caries, toothache, dental abscess, fracture of tooth, aphthous ulcer, TMJ, strep pharyngitis, pharyngitis, thrush Lab Data Labs: Lab Results 03/18/25 Range/Units 13:44 POC Grp A Strep Screen Negative (Negative) Discharge Plan Discharge Clinical Impression: Gingivostomatitis Patient Disposition: Home Condition: Stable Instructions: Antibiotic Form, Gingivostomatitis (ED) Additional Instructions: I suspect you have gingival stomatitis-Magic mouthwash prescriptions were sent to the pharmacy-mix and take as directed Strep test was negative in the clinic today. We will send strep for culture if this comes back positive we will contact him place you on antibiotics at that time. Take prescription medications only as prescribed Increase fluids and stay well hydrated May take Tylenol or motrin as directed on bottle for pain/fever Avoid salty, citrus, or spicy foods as this may cause pain Go to the ED if you develop a worsening in your condition- high fever not controlled by Tylenol or Motrin, dehydration, weakness, lethargy, shortness of breath, or chest pain. Follow up with your PCP in 3-5 days if symptoms persist. Patient Language: Latvian Prescriptions: New lidocaine HCl [Lidocaine Viscous] 2 % solution 5 ml mucous membrane QID PRN (Reason: pain) 7 Days Qty: 300 1RF Rx Instructions: Mix with Benadryl and Maalox diphenhydramine HCl [Benadryl Allergy] 12.5 mg/5 mL liquid 12.5 mg PO Q6H PRN (Reason: mouth pain) 7 Days Qty: 300 0RF Rx Instructions: mix with viscous lidocaine and Maalox alum-mag hydroxide-simeth [Maalox Advanced] 200-200-20 mg/5 mL suspension 5 ml PO Q6H PRN (Reason: mouth pain) 7 Days Qty: 300 0RF Rx Instructions: Makes with Benadryl and viscous lidocaine No Action glimepiride 4 mg tablet rosuvastatin 20 mg tablet gabapentin 400 mg capsule 400 mg PO TID levothyroxine 137 mcg tablet 137 mcg PO DAILY losartan 25 mg tablet 25 mg PO DAILY (DME) True Metrix Glucose Test Strip Strip See Rx Instructions .Route Rx Instructions: As directed glimepiride 2 mg tablet 4 mg PO QAM Rx Instructions: administer with breakfast (DME) pen needle, diabetic [Sure Comfort Pen Needle] 32 gauge x 5/32 needle See Rx Instructions .Route Rx Instructions: As directed loratadine [Claritin] 10 mg tablet 10 mg PO PRN metformin 500 mg tablet 1,000 mg PO BID Trulicity 1.5 mg/0.5 mL pen injector 1.5 mg subcut WEEKLY vitamin B complex [B Complex-Vitamin B12] Tablet 1 tablet PO DAILY vitamin E (dl, acetate) 180 mg (400 unit) Capsule 180 mg PO DAILY cholecalciferol (vitamin D3) [Vitamin D3] 125 mcg (5,000 unit) Tablet 125 mcg PO DAILY cimetidine 400 mg Tablet 400 mg PO BID Follow-up/Referrals: Kumar,Erika Edward APN [Primary Care Provider, Unknown] Time of Disposition: 13:45 Quality NIHSS Nursing Documentation ED NIHSS nursing documentation: reviewed/agree
[2025-03-18 13:46] LABS: EDSTREPNEGPOS1 Negative (Negative)
== END 2025-03-18 13:49 | disposition home or self-care (01) ==
PROVIDERS: Emergency Provider Nurse Practitioner Family; PCP Nurse Practitioner Family
DX: K05.10 Chronic gingivitis, plaque induced (principal); E11.9 Type 2 diabetes mellitus without complications
CPT/HCPCS: 87081; 87880; 99213; G0463